=== PATIENT | female | born 1950 | race Caucasian/White ===

== ENCOUNTER → 2020-05-03 09:10 | Outpatient (BNVA) | payer MEDICARE, SELFPAY | PROVIDERS: Family Provider Nurse Practitioner; PCP Nurse Practitioner; Visit Provider Nurse Practitioner Family | DX: E11.9 Type 2 diabetes mellitus without complications (principal); I10 Essential (primary) hypertension | CPT/HCPCS: 80053; 80061; 83036; 84443; 85025 ==

== ENCOUNTER → 2021-03-04 13:27 | Outpatient (BNVA) | payer MEDICARE, SELFPAY | PROVIDERS: Family Provider Nurse Practitioner; PCP Nurse Practitioner; Visit Provider Nurse Practitioner | DX: R53.83 Other fatigue (principal); E55.9 Vitamin D deficiency, unspecified; E11.65 Type 2 diabetes mellitus with hyperglycemia | CPT/HCPCS: 71046; 80053; 80061; 81000; 82306; 82607; 83036; 84443; 85025; 87400 ==

== ENCOUNTER → 2021-06-12 09:07 | Outpatient (BNVA) | payer MEDICARE, SELFPAY | PROVIDERS: Family Provider Nurse Practitioner; PCP Nurse Practitioner; Visit Provider Nurse Practitioner Family | DX: E11.65 Type 2 diabetes mellitus with hyperglycemia (principal); E55.9 Vitamin D deficiency, unspecified | CPT/HCPCS: 80053; 80061; 82306; 83036; 84443; 85025 ==

== ENCOUNTER → 2021-12-31 14:05 | Outpatient (BNVA) | payer MEDICARE, SELFPAY | PROVIDERS: Family Provider Nurse Practitioner; PCP Nurse Practitioner; Visit Provider Nurse Practitioner | DX: E11.65 Type 2 diabetes mellitus with hyperglycemia (principal); E55.9 Vitamin D deficiency, unspecified; R10.9 Unspecified abdominal pain; R53.83 Other fatigue; Z79.899 Other long term (current) drug therapy | CPT/HCPCS: 80053; 80061; 81000; 82306; 82607; 83036; 84443; 85025; 86705; 86706; 86709; 86803; 87340 ==

== ENCOUNTER → 2022-01-01 15:03 | Outpatient (BNVA) | payer MEDICARE, SELFPAY | PROVIDERS: Family Provider Nurse Practitioner; PCP Nurse Practitioner; Visit Provider Nurse Practitioner | DX: R53.83 Other fatigue (principal); R10.9 Unspecified abdominal pain | CPT/HCPCS: 71046; 74018 ==

== ENCOUNTER 2022-01-03 15:03 | Emergency (ER) | payer MEDICARE, SELFPAY ==
[2022-01-03] VITALS (7 sets, daily range): BP systolic 131–165; BP diastolic 79–99; PULSE 65–92; RESP 17–18; TEMP 36.7–36.9; O2SAT 96–98; BMI 33.8
--- NOTE | 2022-01-03 15:19 | XR_ITS ---
WS: [id number] XR chest 1V portable [id number] REASON FOR EXAM: Cough FINDINGS: Significant tortuosity of the thoracic aorta. Normal heart size. Calcified granulomatous disease in both hemithoraces. No active pulmonary parenchymal or pleural dise ase. Significant elevation of the right hemidiaphragm. The chest does not change significantly since 01/01/2022. XR/XR chest 1V portable [id number] IMPRESSION: Stable chest no acute abnormality identified.
[2022-01-03 16:04] LABS: Basophils % 0.5 %; Hematocrit 38.4 % (37.0-47.0); Hemoglobin 12.5 g/dL (11.5-15.3); Lymphocytes % 24.6 %; Mean Corpuscular HGB Conc 32.6 g/dL (30.0-36.0); Mean Corpuscular Hemoglobin 29.3 pg (28.0-34.0); Mean Corpuscular Volume 89.9 fl (81-99); Mean Platelet Volume 10.4 fL (7.4-10.4); Monocytes # 0.6 10^3/uL (0.2-0.9); Monocytes % 7.3 %; Neutrophils # 5.59 10^3/uL (1.8-7.7); Neutrophils % 67.4 %; Nucleated Red Blood Cells % 0 %; Platelet Count 351 10^3/cmm (130-400); Red Blood Count 4.27 10^6/uL (4.1-5.3); Red Cell Distribution Width 13.7 % (12.1-15.1); White Blood Count 8.3 10^3/uL (4.0-10.0)
[2022-01-03 16:22] LABS: Alanine Aminotransferase 287 U/L (0-33); Albumin Level 4.1 g/dL (3.5-5.2); Alkaline Phosphatase 488 U/L (35-105); Anion Gap 19.7 (5-19); Aspartate Amino Transferase 170 U/L (0-32); Blood Urea Nitrogen 22 mg/dL (8-23); Calcium 9.9 mg/dL (8.5-10.5); Carbon Dioxide 23 mmol/L (22-29); Chloride 99 mmol/L (98-107); Globulin 3.1 g/dL (1.3-4.6); Glucose 128 mg/dL (65-115); Lipase 38 U/L (13-60); Osmolality Calculated 291 mOsm/kg (285-295); Potassium 3.7 mmol/L (3.5-5.1); Sodium 138 mmol/L (136-145); Total Bilirubin 5.9 mg/dL (0.15-1.2); Total Protein 7.2 g/dL (6.6-8.7)
--- NOTE | 2022-01-03 16:59 | W.ED.ABDPA2 ---
Documented by User: Can Mcdowell DO 01/15/22 09:27 HPI - Abdominal Pain General: Chief Complaint: Abdominal Pain Stated Complaint: Sent by Dr. Cannon abnormal labs Time Seen by Provider: 01/03/22 16:15 Source: patient Mode of arrival: ambulatory Limitations: no limitations History of Present Illness: 71-year-old female presents to the emergency room with report of elevated and liver enzymes and T bili. She has been having epigastric pain after eating with nausea. No vomiting or diarrhea no previous abdominal surgeries no fever sweats or chills no acholic stools no dysuria urgency or frequency. She is on metformin she is not on any statin medications. No other hepatotoxic medications. She reported generally feeling ill this past week. No chest pain or shortness of breath. Localizes pain to the epigastric and right upper quadrant area. MD elicited complaint: abdominal pain Pertinent past history: none Onset (ago): minute(s) Pain Consistency: constant Location: Epigastric and RUQ Severity: moderate Quality: cramping Radiation: none Exacerbating factors: nothing Relieving factors: nothing Associated Symptoms: Reports anorexia, nausea and poor appetite; Denies belching, bloating, change in bowel habits, change in stool character, chills, coffee ground emesis, constipation, GI cramping, diarrhea, dyspepsia, dysuria, excessive flatus, fever(s), heartburn, hematochezia, hematuria, hematemesis, fecal incontinence, loose stools, melena, syncope and vomiting Review of Systems Const: Denies: fever(s), chills, fatigue or malaise ENMT: Denies: throat pain, ear or mastoid pain, nasal discharge or nasal congestion Card: Denies: chest pain, palpitations or syncope Resp: Denies: dyspnea, productive cough or non-productive cough GI: Reports: abdominal pain and nausea; Denies: vomiting, hematemesis, coffee ground emesis, heartburn, diarrhea, constipation, bloating, GI cramping, belching, excessive flatus, fecal incontinence, change in bowel habits, change in stool character, hematochezia or melena : Denies: flank pain, difficulty voiding, dysuria, urinary frequency or hematuria Skin/Breast: Denies: rash or pruritus PFSH ED PFSH: Medical History Diabetes mellitus with hyperglycemia, without long-term current use of insulin Essential hypertension Vitamin D deficiency Surgical History (Reviewed 01/15/22 @ 09: by Can Mcdowell DO) No significant past surgical history Family History (Reviewed 01/15/22 @ 09: by Can Mcdowell DO) Mother Diabetes Social History (Reviewed 01/15/22 @ : by Can Mcdowell DO) Smoking and tobacco status: never smoked Second hand smoke exposure: No Smoking risk assessment/counseling performed?: No Alcohol intake: never Desire information about alcohol rehabilitation?: No Counseling given: No Desire information about substance/drug rehabilitation?: No Counseling given: No Adopted: No Caregiver/support person: No Lives independently: Yes Household members: spouse Housing: House Marital status: Number of children: 2 service: No Current occupational status: retired History of recent travel: No Physical Exam Const: GENERAL APPEARANCE: cooperative and comfortable ORIENTATION/CONSCIOUSNESS: Yes awake, Yes oriented to person, Yes oriented to place and Yes oriented to time HENMT: COMMON NORMALS: normocephalic, atraumatic and hearing grossly normal bilaterally HEAD & SCALP: normocephalic and atraumatic Resp: COMMON NORMALS: normal respiratory effort, No retractions, No use of accessory muscles and clear to auscultation bilaterally AUSCULTATION: clear to auscultation bilaterally Cardio: COMMON NORMALS: regular rate, regular rhythm and No murmurs present (Cardio) RATE: regular rate RHYTHM: regular rhythm GI: COMMON NORMALS: No hepatosplenomegaly present AUSCULTATION: Yes normoactive bowel sounds PALPATION: Yes Tenderness to palpation present (GI) Details: RUQ (Negative Caicedo sign but generalized mild tenderness), No Guarding due to palpation present (GI) and Yes No hepatosplenomegaly present Extremity: COMMON NORMALS: normal to inspection, capillary refill normal, no clubbing, cyanosis or edema, no calf tenderness and no pedal edema Neuro: SENSORIUM/ORIENTATION: Yes oriented to person, Yes oriented to place and Yes oriented to time Skin: COMMON NORMALS: no rashes or lesions noted GENERAL SKIN EXAM: no rashes or lesions noted Course Vital Signs: Vital signs: Vital Signs Temperature 98.4 F 01/03/22 22:36 Pulse Rate 78 01/03/22 22:36 Respiratory Rate 17 01/03/22 22:36 Blood Pressure 145/88 01/03/22 22:36 Pulse Oximetry 96 01/03/22 22:36 Oxygen Delivery Me thod 01/03/22 17:51 MDM - Abdominal Pain Medical Decision Making Care signed out to Dr. Pineda at change of shift. See final notes for diagnosis and disposition. Patient presents abdominal pain along with an elevated bilirubin her CT showed a liver mass with intrahepatic biliary ductal dilatation I did speak to physician at [facility] will transfer there for higher level care for patient likely needs GI she has been stable here. Lab Data : 01/03/22 15:50 01/03/22 15:50 Labs/Radiology: Radiology Impressions Chest X-Ray 01/03/22 15:19 IMPRESSION: Stable chest no acute abnormality identified. Gallbladder Ultrasound 01/03/22 17:00 IMPRESSION: 1. Questionable evidence on a few images of the mass in the right lobe of the liver seen on the recent CT. No sonographic demonstration of the intrahepatic biliary ductal dilatation seen on the CT. 2. No good visualization of the distal gallbladder; no shadowing stone in its proximal aspect. Nondilated CBD. 3. No apparent abnormality of the right kidney and the visualized pancreas. Other findings detailed above. Abdomen/Pelvis CT 01/03/22 19:44 IMPRESSION: 1. Noncontrast study showing a right liver mass with ill-defined margins having no fat plane between it and the gallbladder in addition to moderate intrahepatic biliary ductal dilatation ending at the eleazar hepatis, therefore cholangiocarcinoma felt to be possible. Follow-up liver MRI without and with contrast suggested. 2. Minimal left hydronephrosis and/or left peripelvic cysts. Bilateral ovarian varices. Small hiatal hernia. Other findings detailed above. COMMENTS: Consistent with the [place] [employer]'s Incidental Findings Committee white paper (J Am Lyric Radiol 2018): Any incidental renal lesion less than 1 cm or classified as too small to characterize, or any incidental cystic renal lesion characterized as simple-appearing, is likely benign. No follow-up imaging is recommended for these lesions per consensus recommendations based on imaging criteria. Laboratory Results WBC 8.3 10^3/uL (4.0-10.0) 01/03/22 15:50 RBC 4.27 10^6/uL (4.1-5.3) 01/03/22 15:50 Hgb 12.5 g/dL (11.5-15.3) 01/03/22 15:50 Hct 38.4 % (37.0-47.0) 01/03/22 15:50 MCV 89.9 fl (81-99) 01/03/22 15:50 MCH 29.3 pg (28.0-34.0) 01/03/22 15:50 MCHC 32.6 g/dL (30.0-36.0) 01/03/22 15:50 RDW 13.7 % (12.1-15.1) 01/03/22 15:50 Plt Count 351 10^3/cmm (130-400) 01/03/22 15:50 MPV 10.4 fL (7.4-10.4) 01/03/22 15:50 Neut % (Auto) 67.4 % 01/03/22 15:50 Lymph % (Auto) 24.6 % 01/03/22 15:50 Trinity % (Auto) 7.3 % 01/03/22 15:50 Eos % (Auto) 0.0 % 01/03/22 15:50 Baso % (Auto) 0.5 % 01/03/22 15:50 Neut # (Auto) 5.59 10^3/uL (1.8-7.7) 01/03/22 15:50 Lymph # (Auto) 2.0 10^3/uL (0.8-4.8) 01/03/22 15:50 Trinity # (Auto) 0.6 10^3/uL (0.2-0.9) 01/03/22 15:50 Eos # (Auto) 0.0 10^3/uL (0.0-0.8) 01/03/22 15:50 Baso # (Auto) 0.0 10^3/uL (0.0-0.1) 01/03/22 15:50 Nucleated RBC % (auto) 0 % 01/03/22 15:50 Nucleated RBCs # 0.0 /100WBC 01/03/22 15:50 Sodium 138 mmol/L (136-145) 01/03/22 15:50 Potassium 3.7 mmol/L (3.5-5.1) 01/03/22 15:50 Chloride 99 mmol/L (98-107) 01/03/22 15:50 Carbon Dioxide 23 mmol/L (22-29) 01/03/22 15:50 Anion Gap 19.7 (5-19) H 01/03/22 15:50 BUN 22 mg/dL (8-23) 01/03/22 15:50 Creatinine 0.7 mg/dL (0.5-0.9) 01/03/22 15:50 GFR Calculation Not Reportable 01/03/22 15:50 Glucose 128 mg/dL (65-115) H 01/03/22 15:50 Calculated Osmolality 291 mOsm/kg (285-295) 01/03/22 15:50 Calcium 9.9 mg/dL (8.5-10.5) 01/03/22 15:50 Total Bilirubin 5.9 mg/dL (0.15-1.2) H 01/03/22 15:50 AST 170 U/L (0-32) H 01/03/22 15:50 ALT 287 U/L (0-33) H 01/03/22 15:50 Alkaline Phosphatase 488 U/L (35-105) H 01/03/22 15:50 Total Protein 7.2 g/dL (6.6-8.7) 01/03/22 15:50 Albumin 4.1 g/dL (3.5-5.2) 01/03/22 15:50 Globulin 3.1 g/dL (1.3-4.6) 01/03/22 15:50 Lipase 38 U/L (13-60) 01/03/22 15:50 Urine Color Yellow (Yellow) 01/03/22 15:45 Urine Appearance Clear (CLEAR) 01/03/22 15:45 Urine pH 5 (5-7) 01/03/22 15:45 Ur Specific Champion 1.005 (1.005-1.030) 01/03/22 15:45 Urine Protein Neg (Negative) 01/03/22 15:45 Urine Glucose (UA) Norm (Normal) 01/03/22 15:45 Urine Ketones Negative (Negative) 01/03/22 15:45 Urine Blood Neg (Negative) 01/03/22 15:45 Urine Nitrate Negative (Negative) 01/03/22 15:45 Urine Bilirubin 1+ (Negative) H 01/03/22 15:45 Urine Urobilinogen 1 mg/dL (Negative) H 01/03/22 15:45 Ur Leukocyte Esterase 1+ (Negative) H 01/03/22 15:45 Urine RBC None /hpf (0-2) 01/03/22 15:45 Urine WBC None /hpf (0-5) 01/03/22 15:45 Ur Squamous Epith Cells None /hpf (0-5) 01/03/22 15:45 Amorphous Sediment Not Reportable 01/03/22 15:45 Urine Bacteria None /hpf (NONE) 01/03/22 15:45 Hepatitis A IgM Ab Non-reactive (Nonreactive) 01/03/22 18:40 Hep Bs Antigen Non-reactive (Nonreactive) 01/03/22 18:40 Hep Bs Antibody 3.5 (11.5-1000) L 01/03/22 18:40 Hep B Core Total Ab Non-reactive (Nonreactive) 01/03/22 18:40 Hepatitis C Antibody Non-reactive (Nonreactive) 01/03/22 18:40 Discharge Plan Discharge Patient Disposition: Xfer Short-Term Hosp Clinical Impression: Liver mass, Elevated bilirubin Condition: Stable Referrals: Aryan Cannon, [facility] [Primary Care Provider] - Coding Level of Care Code ED Egg Processing Supervisor for Chg Fwd Exam Detailed Documented by User: David Pineda MD 01/03/22 22:12 HPI - Abdominal Pain General: Chief Complaint: Abdominal Pain Stated Complaint: Sent by Dr. Cannon abnormal labs Time Seen by Provider: 01/03/22 16:15 PFSH ED PFSH: Medical History Diabetes mellitus with hyperglycemia, without long-term current use of insulin Essential hypertension Vitamin D deficiency Surgical History No significant past surgical history Family History Mother Diabetes Social History Smoking and tobacco status: never smoked Second hand smoke exposure: No Smoking risk assessment/counseling performed?: No Alcohol intake: never Desire information about alcohol rehabilitation?: No Counseling given: No Desire information about substance/drug rehabilitation?: No Counseling given: No Adopted: No Caregiver/support person: No Lives independently: Yes Household members: spouse Housing: House Marital status: Number of children: 2 service: No Current occupational status: retired History of recent travel: No Course Vital Signs: Vital signs: Vital Signs Temperature 98.4 F 01/03/22 22:36 Pulse Rate 78 01/03/22 22:36 Respiratory Rate 17 01/03/22 22:36 Blood Pressure 145/88 01/03/22 22:36 Pulse Oximetry 96 01/03/22 22:36 Oxygen Delivery Me thod 01/03/22 17:51 MDM - Abdominal Pain Medical Decision Making Patient presents abdominal pain along with an elevated bilirubin her CT showed a liver mass with intrahepatic biliary ductal dilatation I did speak to physician at [facility] will transfer there for higher level care for patient likely needs GI she has been stable here. Lab Data : 01/03/22 15:50 01/03/22 15:50 Labs/Radiology: Radiology Impressions Chest X-Ray 01/03/22 15:19 IMPRESSION: Stable chest no acute abnormality identified. Gallbladder Ultrasound 01/03/22 17:00 IMPRESSION: 1. Questionable evidence on a few images of the mass in the right lobe of the liver seen on the recent CT. No sonographic demonstration of the intrahepatic biliary ductal dilatation seen on the CT. 2. No good visualization of the distal gallbladder; no shadowing stone in its proximal aspect. Nondilated CBD. 3. No apparent abnormality of the right kidney and the visualized pancreas. Other findings detailed above. Abdomen/Pelvis CT 01/03/22 19:44 IMPRESSION: 1. Noncontrast study showing a right liver mass with ill-defined margins having no fat plane between it and the gallbladder in addition to moderate intrahepatic biliary ductal dilatation ending at the eleazar hepatis, therefore cholangiocarcinoma felt to be possible. Follow-up liver MRI without and with contrast suggested. 2. Minimal left hydronephrosis and/or left peripelvic cysts. Bilateral ovarian varices. Small hiatal hernia. Other findings detailed above. COMMENTS: Consistent with the [place] [employer]'s Incidental Findings Committee white paper (J Am Lyric Radiol 2018): Any incidental renal lesion less than 1 cm or classified as too small to characterize, or any incidental cystic renal lesion characterized as simple-appearing, is likely benign. No follow-up imaging is recommended for these lesions per consensus recommendations based on imaging criteria. Laboratory Results WBC 8.3 10^3/uL (4.0-10.0) 01/03/22 15:50 RBC 4.27 10^6/uL (4.1-5.3) 01/03/22 15:50 Hgb 12.5 g/dL (11.5-15.3) 01/03/22 15:50 Hct 38.4 % (37.0-47.0) 01/03/22 15:50 MCV 89.9 fl (81-99) 01/03/22 15:50 MCH 29.3 pg (28.0-34.0) 01/03/22 15:50 MCHC 32.6 g/dL (30.0-36.0) 01/03/22 15:50 RDW 13.7 % (12.1-15.1) 01/03/22 15:50 Plt Count 351 10^3/cmm (130-400) 01/03/22 15:50 MPV 10.4 fL (7.4-10.4) 01/03/22 15:50 Neut % (Auto) 67.4 % 01/03/22 15:50 Lymph % (Auto) 24.6 % 01/03/22 15:50 Trinity % (Auto) 7.3 % 01/03/22 15:50 Eos % (Auto) 0.0 % 01/03/22 15:50 Baso % (Auto) 0.5 % 01/03/22 15:50 Neut # (Auto) 5.59 10^3/uL (1.8-7.7) 01/03/22 15:50 Lymph # (Auto) 2.0 10^3/uL (0.8-4.8) 01/03/22 15:50 Trinity # (Auto) 0.6 10^3/uL (0.2-0.9) 01/03/22 15:50 Eos # (Auto) 0.0 10^3/uL (0.0-0.8) 01/03/22 15:50 Baso # (Auto) 0.0 10^3/uL (0.0-0.1) 01/03/22 15:50 Nucleated RBC % (auto) 0 % 01/03/22 15:50 Nucleated RBCs # 0.0 /100WBC 01/03/22 15:50 Sodium 138 mmol/L (136-145) 01/03/22 15:50 Potassium 3.7 mmol/L (3.5-5.1) 01/03/22 15:50 Chloride 99 mmol/L (98-107) 01/03/22 15:50 Carbon Dioxide 23 mmol/L (22-29) 01/03/22 15:50 Anion Gap 19.7 (5-19) H 01/03/22 15:50 BUN 22 mg/dL (8-23) 01/03/22 15:50 Creatinine 0.7 mg/dL (0.5-0.9) 01/03/22 15:50 GFR Calculation Not Reportable 01/03/22 15:50 Glucose 128 mg/dL (65-115) H 01/03/22 15:50 Calculated Osmolality 291 mOsm/kg (285-295) 01/03/22 15:50 Calcium 9.9 mg/dL (8.5-10.5) 01/03/22 15:50 Total Bilirubin 5.9 mg/dL (0.15-1.2) H 01/03/22 15:50 AST 170 U/L (0-32) H 01/03/22 15:50 ALT 287 U/L (0-33) H 01/03/22 15:50 Alkaline Phosphatase 488 U/L (35-105) H 01/03/22 15:50 Total Protein 7.2 g/dL (6.6-8.7) 01/03/22 15:50 Albumin 4.1 g/dL (3.5-5.2) 01/03/22 15:50 Globulin 3.1 g/dL (1.3-4.6) 01/03/22 15:50 Lipase 38 U/L (13-60) 01/03/22 15:50 Urine Color Yellow (Yellow) 01/03/22 15:45 Urine Appearance Clear (CLEAR) 01/03/22 15:45 Urine pH 5 (5-7) 01/03/22 15:45 Ur Specific Champion 1.005 (1.005-1.030) 01/03/22 15:45 Urine Protein Neg (Negative) 01/03/22 15:45 Urine Glucose (UA) Norm (Normal) 01/03/22 15:45 Urine Ketones Negative (Negative) 01/03/22 15:45 Urine Blood Neg (Negative) 01/03/22 15:45 Urine Nitrate Negative (Negative) 01/03/22 15:45 Urine Bilirubin 1+ (Negative) H 01/03/22 15:45 Urine Urobilinogen 1 mg/dL (Negative) H 01/03/22 15:45 Ur Leukocyte Esterase 1+ (Negative) H 01/03/22 15:45 Urine RBC None /hpf (0-2) 01/03/22 15:45 Urine WBC None /hpf (0-5) 01/03/22 15:45 Ur Squamous Epith Cells None /hpf (0-5) 01/03/22 15:45 Amorphous Sediment Not Reportable 01/03/22 15:45 Urine Bacteria None /hpf (NONE) 01/03/22 15:45 Hepatitis A IgM Ab Non-reactive (Nonreactive) 01/03/22 18:40 Hep Bs Antigen Non-reactive (Nonreactive) 01/03/22 18:40 Hep Bs Antibody 3.5 (11.5-1000) L 01/03/22 18:40 Hep B Core Total Ab Non-reactive (Nonreactive) 01/03/22 18:40 Hepatitis C Antibody Non-reactive (Nonreactive) 01/03/22 18:40 Discharge Plan Discharge Patient Disposition: Xfer Short-Term Hosp Clinical Impression: Liver mass, Elevated bilirubin Condition: Stable Referrals: Aryan Cannon, [facility] [employer] [facility] [Primary Care Provider] - Coding Level of Care Code ED Egg Processing Supervisor for Chg Fwd Exam Detailed
--- NOTE | 2022-01-03 17:00 | USR_ITS ---
PROCEDURE INFORMATION: Exam: US Abdomen, Limited; Right Upper Quadrant Exam date and time: 01/03/2022 6:52 PM Age: 71 years old Clinical indication: Abdominal pain; Acute; Additional info: Elevated lfts/t bili TECHNIQUE: Imaging protocol: Real time ultrasound of the abdomen with image documentation. Limited exam focused on the right upper quadrant. COMPARISON: CR XR abdomen 1V* [id number] 01/01/2022 3:04 PM FINDINGS: Liver: Normal echogenicity of the left lobe of the liver and no apparent mass within it. Less than optimal visualization of the right lobe of the liver with slightly heterogeneous density likely evident within it; questionable evidence on a few images of the mass in the right lobe of the liver seen on the recent CT. Normal blood flow in the main portal vein. Gallbladder: No good visualization of the distal gallbladder. Anterior gallbladder wall thickness 2.1 mm. No shadowing stone in the proximal gallbladder. Biliary ducts: No sonographic demonstration of the intrahepatic biliary ductal dilatation seen on the recent CT. CBD measured as 5.5 mm. Pancreas: Normal size and echogenicity of the pancreatic neck. Obscuration of the rest of the pancreas by bowel gas. Right kidney: Right kidney approximately 10.6 cm long despite bowel gas along it by 4.5 x 5.6 cm with no hydronephrosis or apparent mass or shadowing stone. Aorta: No aneurysm of the visualized aorta. US/US gall bladder [id number] IMPRESSION: 1. Questionable evidence on a few images of the mass in the right lobe of the liver seen on the recent CT. No sonographic demonstration of the intrahepatic biliary ductal dilatation seen on the CT. 2. No good visualization of the distal gallbladder; no shadowing stone in its proximal aspect. Nondilated CBD. 3. No apparent abnormality of the right kidney and the visualized pancreas. Other findings detailed above.
[2022-01-03 17:23] LABS: Bilirubin Urine 1+ (Negative); Blood Urine Neg (Negative); Glucose Urine UA Norm (Normal); Ketones Urine Negative (Negative); Leukocyte Esterase Urine 1+ (Negative); Nitrate Urine Negative (Negative); Protein Urine Neg (Negative); Specific Gravity, Urine 1.005 (1.005-1.030); Urine Appearance Clear (CLEAR); Urine Color Yellow (Yellow); Urobilinogen Urine 1 mg/dL (Negative); pH Urine 5 (5-7)
[2022-01-03 17:24] LABS: Add Urine Culture? No; Add Urine Microscopic? YES
--- NOTE | 2022-01-03 19:44 | CTR_ITS ---
PROCEDURE INFORMATION: Exam: CT Abdomen And Pelvis Without Contrast Exam date and time: 01/03/2022 7:51 PM Age: 71 years old Clinical indication: Nausea and other: Elevated liver enzymes, weakness; Additional info: Abd pain/ elevated bilirubing TECHNIQUE: Imaging protocol: Computed tomography of the abdomen and pelvis without contrast. Radiation optimization: All CT scans at this facility use at least one of these dose optimization techniques: automated exposure control; mA and/or kV adjustment per patient size (includes targeted exams where dose is matched to clinical indication); or iterative reconstruction. COMPARISON: US gall bladder [id number] 01/03/2022 6:52 PM RADIATION DOSE METRICS: Total DLP (mGy-cm): 827.17 FINDINGS: Lungs: Minimal stranding in the lung bases. Diaphragm: Small hiatal hernia. Eventration of the right hemidiaphragm. Liver: Density of 24 HU in the approximately 5.4 x 3.9 x 4.1 cm mass in the right lobe of the liver having ill-defined margins and no fat plane between it and the gallbladder. Small satellite mass in the inferior right lobe of the liver also possible. Gallbladder and bile ducts: Slightly heterogeneous density within the gallbladder, but no calcified gallstones. Moderate intrahepatic biliary ductal dilatation, but no dilatation of the CBD. Pancreas: Mild fatty infiltration of the pancreatic head, but no suggestion of a mass in the pancreas or dilatation of its duct. Spleen: No splenomegaly. Adrenal glands: No adrenal mass. Kidneys and ureters: No right hydronephrosis. Minimal left hydronephrosis and/or left peripelvic cysts. No suggestion of a solid renal mass. Stomach and bowel: Elongation of the sigmoid colon into the right middle to upper abdomen. At least mild sigmoid diverticulosis. No obstruction. Nondistended stomach. Appendix: Normal appendix. Intraperitoneal space: No free air. Vasculature: Moderate left and minimal to mild right ovarian varices. No aortic aneurysm. Atherosclerosis. Tortuosity of the descending thoracic aorta. Lymph nodes: Calcified lymph nodes in the right mediastinum and lower hilum. No obvious periportal adenopathy or suggestion of enlarged nodes elsewhere. Urinary bladder: Unremarkable as visualized. Reproductive: Unremarkable as visualized. Bones/joints: Old compression fractures. Degeneration of multiple discs. Prominent degeneration of multiple lower lumbar facet joints and probable bony bridging of some of these joints. Numerous slight malalignments. Soft tissues: Small left inguinal hernia containing fat. CT/CT abdomen pelvis wo con [id number] IMPRESSION: 1. Noncontrast study showing a right liver mass with ill-defined margins having no fat plane between it and the gallbladder in addition to moderate intrahepatic biliary ductal dilatation ending at the eleazar hepatis, therefore cholangiocarcinoma felt to be possible. Follow-up liver MRI without and with contrast suggested. 2. Minimal left hydronephrosis and/or left peripelvic cysts. Bilateral ovarian varices. Small hiatal hernia. Other findings detailed above. COMMENTS: Consistent with the [place] [employer]'s Incidental Findings Committee white paper (J Am Lyric Radiol 2018): Any incidental renal lesion less than 1 cm or classified as too small to characterize, or any incidental cystic renal lesion characterized as simple-appearing, is likely benign. No follow-up imaging is recommended for these lesions per consensus recommendations based on imaging criteria.
[2022-01-03 20:47] LABS: Hepatitis A Antibody IgM Non-Reactive (Nonreactive); Hepatitis B Core AB, Total Non-Reactive (Nonreactive); Hepatitis B Surface AB 3.5 (11.5-1000); Hepatitis B Surface Antigen Non-Reactive (Nonreactive); Hepatitis C Virus Antibody Non-Reactive (Nonreactive)
== END 2022-01-03 22:58 | disposition short-term general hospital (02) ==
PROVIDERS: Family Medicine; Emergency Provider Emergency Medicine; PCP Nurse Practitioner
DX: R16.0 Hepatomegaly, not elsewhere classified (principal); E80.6 Other disorders of bilirubin metabolism; E11.9 Type 2 diabetes mellitus without complications; I10 Essential (primary) hypertension
CPT/HCPCS: 71045; 74176; 76705; 80053; 81001; 83690; 85025; 86705; 86706; 86709; 86803; 87340; 99285

== ENCOUNTER → 2022-01-17 10:30 | Outpatient (BNVA) | payer MEDICARE, SELFPAY | PROVIDERS: PCP Nurse Practitioner; Visit Provider Nurse Practitioner | DX: R74.8 Abnormal levels of other serum enzymes (principal) | CPT/HCPCS: 80053; 85025 ==

== ENCOUNTER → 2022-01-27 10:49 | Outpatient (BNVA) | payer MEDICARE, SELFPAY | PROVIDERS: PCP Nurse Practitioner; Visit Provider Nurse Practitioner | DX: I10 Essential (primary) hypertension (principal); E11.65 Type 2 diabetes mellitus with hyperglycemia | CPT/HCPCS: 80053; 85025 ==

== ENCOUNTER → 2022-04-14 15:26 | Outpatient (BNVA) | payer MEDICARE, SELFPAY | PROVIDERS: PCP Nurse Practitioner; Visit Provider Nurse Practitioner | DX: I10 Essential (primary) hypertension (principal); E11.65 Type 2 diabetes mellitus with hyperglycemia; E55.9 Vitamin D deficiency, unspecified | CPT/HCPCS: 80053; 80061; 82306; 83036; 84443; 85025 ==

== ENCOUNTER → 2022-07-04 11:23 | Outpatient (BNVA) | payer MEDICARE, SELFPAY | PROVIDERS: PCP Nurse Practitioner; Visit Provider Nurse Practitioner | DX: E11.65 Type 2 diabetes mellitus with hyperglycemia (principal); R10.84 Generalized abdominal pain; E55.9 Vitamin D deficiency, unspecified | CPT/HCPCS: 71046; 74018; 80053; 80061; 81000; 82043; 82306; 83036; 85025 ==

== ENCOUNTER 2022-07-23 08:42 | Oncology outpatient (recurring) (ONCR) | payer MEDICARE, SELFPAY ==
[2022-07-23 11:00] LABS: Basophils % 0.2 %; Hematocrit 34.3 % (37.0-47.0); Hemoglobin 10.9 g/dL (11.5-15.3); Lymphocytes # 1.1 10^3/uL (0.8-4.8); Lymphocytes % 9.4 %; Mean Corpuscular HGB Conc 31.8 g/dL (30.0-36.0); Mean Corpuscular Hemoglobin 24.8 pg (28.0-34.0); Mean Platelet Volume 9.9 fL (7.4-10.4); Monocytes # 0.6 10^3/uL (0.2-0.9); Monocytes % 4.8 %; Neutrophils # 10.38 10^3/uL (1.8-7.7); Neutrophils % 85.1 %; Nucleated Red Blood Cells % 0 %; Platelet Count 527 10^3/cmm (130-400); Red Cell Distribution Width 14.7 % (12.1-15.1); White Blood Count 12.2 10^3/uL (4.0-10.0)
[2022-07-23 11:24] LABS: Carcinoembryonic Antigen 1.5 ng/mL (0.0-4.7); Tumor Marker Alpha Fetoprotein 1.3 ng/mL (0-8.3)
[2022-07-23 11:35] LABS: Alanine Aminotransferase 38 U/L (0-33); Albumin Level 3.3 g/dL (3.5-5.2); Alkaline Phosphatase 832 U/L (35-105); Aspartate Amino Transferase 51 U/L (0-32); Blood Urea Nitrogen 10 mg/dL (8-23); Calcium 9.4 mg/dL (8.5-10.5); Carbon Dioxide 22 mmol/L (22-29); Chloride 96 mmol/L (98-107); Glucose 199 mg/dL (65-115); Osmolality Calculated 279 mOsm/kg (285-295); Sodium 132 mmol/L (136-145); Total Bilirubin 1.3 mg/dL (0.15-1.2); Total Protein 7.3 g/dL (6.6-8.7)
[2022-07-23 11:41] LABS: Creatinine Clr Calc Pharmacy 59.3759
[2022-07-23 12:24] LABS: Cancer Antigen 19 9 65.54 U/mL (0-35)
--- NOTE | 2022-07-23 14:34 | PC.NURSE ---
Gardiant test drawn per orders from left ac space along with other labs per orders.mm
== END 2022-07-27 23:59 | disposition home or self-care (01) ==
PROVIDERS: PCP Nurse Practitioner; Visit Provider Internal Medicine Medical Oncology
DX: C22.0 Liver cell carcinoma (principal); C77.2 Secondary and unspecified malignant neoplasm of intra-abdominal lymph nodes; Z79.891 Long term (current) use of opiate analgesic
CPT/HCPCS: 36415; 80053; 82105; 82378; 85025; 86301; 99205

== ENCOUNTER 2022-07-27 14:52 | Observation (INO) | payer MEDICARE, SELFPAY ==
[2022-07-27] VITALS (20 sets, daily range): BP systolic 107–124; BP diastolic 62–69; PULSE 70–88; RESP 18–22; TEMP 36.7–37.2; O2SAT 91–95; BMI 31.2; BMI 30.7
--- NOTE | 2022-07-27 15:03 | ECG_ITS ---
[facility] Test Date: 2022-07-27 Pat Name: Marcela Rosas Department: Room: Gender: Female Visual Designer: : 1950 Requested By: Can Garcia Order Number: [id number] Hero MD: Cindy Beck M.D. Measurements Intervals [place] Rate: 86 P: 25 TX: 161 QRS: -61 QRSD: 109 T: 12 QT: 354 QTc: 426 Interpretive Statements SINUS RHYTHM LOW QRS VOLTAGE IN PRECORDIAL LEADS [QRS DEFLECTION < 1.0 mV IN CHEST LEADS] LEFT ANTERIOR FASCICULAR BLOCK [QRS AXIS <= -45, QR IN I, RS IN II] POSSIBLE ANTERIOR MYOCARDIAL INFARCTION , PROBABLY OLD [30 ms Q WAVE IN V3/V4, OR R < 0.2 mV IN V4] Compared to ECG 03/29/2014 13:15:12 Left anterior fascicular block now present Myocardial infarct finding now present Left-axis deviation no longer present Electronically Signed On 07-27-2022 22:32:32 CDT by Cindy Beck M.D. [id number]
--- NOTE | 2022-07-27 15:03 | XRR_ITS ---
PROCEDURE INFORMATION: Exam: XR Chest Exam date and time: 07/27/2022 3:08 PM Age: 71 years old Clinical indication: Cough and dyspnea; TECHNIQUE: Imaging protocol: Radiologic exam of the chest. Views: 1 view. COMPARISON: CR XR chest 2V* [id number] 07/04/2022 11:21 AM FINDINGS: Lungs: Unremarkable. No consolidation. Pleural spaces: There is blunting of the right costophrenic angle suggestive of a small pleural effusion. Heart/Mediastinum: Unremarkable. No cardiomegaly. Vasculature: There is calcified plaque in the aortic knob. Thoracic aorta is somewhat tortuous, similar to the prior study. Diaphragm: Elevation of the right hemidiaphragm is similar to the prior study. Bones/joints: There are degenerative changes in the thoracic spine and across the acromioclavicular joints. XR/XR chest 1V portable [id number] IMPRESSION: There is blunting of the right costophrenic angle suggestive of a small pleural effusion.
--- NOTE | 2022-07-27 15:09 | ED_ITS ---
HPI - Weakness General: Chief complaint: Weakness Stated complaint: fever, weakness/cancer pt Time Seen by Provider: 07/27/22 14:58 Source: patient Mode of arrival: ambulatory History of Present Illness: 71-year-old female presents emergency room with complaints of weakness that began yesterday. The family reports a temp at home of up to 102. 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 They tell me you are scheduled for a PICC line and a port and they are going to start some immunotherapy soon. She has a waller negative review of systems except for just feeling very weak. She did slide out of a chair onto the floor yesterday when she was down on the floor for about 30 minutes before her helped her back up she denies hitting her head losing consciousness she just felt too weak to stand when she went to get out of the chair. Complaint: generalized weakness Onset (ago): day(s) (1) Location: generalized Severity: moderate Relieving factors: none Exacerbating factors: none Associated symptoms: Denies chest pain, chills, confusion, melena, decreased appetite, diaphoresis, dysuria, easy bruising, fever(s), headache(s), myalgias, nausea, rash, short of breath, syncope or vomiting Review of Systems Const: Denies: fever(s), chills, fatigue, malaise or diaphoresis ENMT: Denies: throat pain, ear or mastoid pain, nasal discharge or nasal congestion Card: Denies: chest pain, palpitations, irregular heart rhythm, edema or syn cope Resp: Denies: dyspnea, productive cough or non-productive cough GI: Denies: abdominal pain, nausea, vomiting or melena : Denies: dysuria, urinary frequency or urinary urgency Musc: Denies: neck pain or back pain Skin/Breast: Denies: rash or pruritus Neuro: Denies: headache(s) or confusion Carlo/Lymph: Denies: easy bruising PFSH ED PFSH: Medical History Essential hypertension Type 2 diabetes mellitus Vitamin D deficiency Surgical History History of endoscopic retrograde cholangiopancreatography (05/23/22) ERCP with removal of biliary stent History of esophagogastroduodenoscopy (07/10/22) EGD with endoscopic ultrasound and FNA biopsies of liver and eleazar hepatis lymph node Hx of endoscopic retrograde cholangiopancreatography (01/10/22) ERCP with biliary stent placement Family History Mother Diabetes Father Heart attack Sister Breast cancer Social History Smoking and tobacco status: never smoked Second hand smoke exposure: No Smoking risk assessment/counseling performed?: No Alcohol intake: never Desire information about alcohol rehabilitation?: No Counseling given: No Substance/Drug Use: never Desire information about substance/drug rehabilitation?: No Counseling given: No Adopted: No Caregiver/support person: No Lives independently: Yes Household members: spouse Housing: House Marital status: Number of children: 2 service: No Current occupational status: retired Physical Exam Const: GENERAL APPEARANCE: cooperative and comfortable ORIENTATION/CONSCIOUSNESS: Yes awake, Yes oriented to person, Yes oriented to place and Yes oriented to time HENMT: COMMON NORMALS: normocephalic, atraumatic and hearing grossly normal bilaterally HEAD & SCALP: normocephalic and atraumatic Resp: COMMON NORMALS: normal respiratory effort, No retractions, No use of accessory muscles and clear to auscultation bilaterally AUSCULTATION: clear to auscultation bilaterally Cardio: COMMON NORMALS: regular rate, regular rhythm and No murmurs present (Cardio) RATE: regular rate RHYTHM: regular rhythm GI: COMMON NORMALS: Soft to palpation and No hepatosplenomegaly present AUSCULTATION: Yes normoactive bowel sounds PALPATION: Yes Soft to palpation, No Tenderness to palpation present (GI), No Guarding due to palpation present (GI) and Yes No hepatosplenomegaly present Extremity: COMMON NORMALS: normal to inspection, capillary refill normal, no clubbing, cyanosis or edema, no calf tenderness and no pedal edema Neuro: SENSORIUM/ORIENTATION: Yes oriented to person, Yes oriented to place a nd Yes oriented to time Skin: COMMON NORMALS: no rashes or lesions noted GENERAL SKIN EXAM: no rashes or lesions noted Course Vital Signs: Vital signs: Vital Signs Temperature 98.9 F 07/27/22 14:57 Pulse Rate 79 04/30/23 16:30 Respiratory Rate 18 07/27/22 16:30 Blood Pressure 118/69 07/27/22 16:00 Pulse Oximetry 92 07/27/22 16:30 Oxygen Delivery Me thod Room Air 07/27/22 14:57 MDM - Weakness Medical Decision Making Leukocytosis also with glucosuria. Chest x-ray shows small pleural effusion but no infiltrate I believe her elevated white count is in part due to tumor but in part also due to cystitis. She does not really any significant flank pain. CT shows further extension of her tumor where it is actually seeing the abdominal wall in the right. This also extended to the gallbladder fossa compared to previous. Reviewed the oncology note at this point they are recommending palliative treatments which she was supposed to get vascular access procedures for later this coming week and then begin immunotherapy as palliation. We initi ally discussed being discharged home with oral antibiotics. After reviewing the chart further went back to the room discussed with her again encouraged her to stay instead. She and her daughters are in agreement. We will start her on Rocephin. She is mildly hyponatremic in addition to having a cystitis and leukocytosis. Discussed Dr. Gandara orders written. Medical Records I reviewed the patient's medical records. Lab Data I reviewed the patient's lab results. 07/27/22 15:07 07/27/22 15:07 Radiology Impressions Chest X-Ray 07/27/22 15:03 IMPRESSION: There is blunting of the right costophrenic angle suggestive of a small pleural effusion. Abdomen/Pelvis CT 07/27/22 15:41 IMPRESSION: 1. Multiple heterogeneous hepatic lesions consistent with metastatic disease. There is heterogeneous density in the gallbladder fossa which can not be differentiated from the adjacent 2nd duodenal segment or pancreatic head raising concern for tumoral extension. 2. There is a heterogeneous lesion along the right lower quadrant peritoneum extending through the transverse abdominus muscle consistent with metastatic disease. 3. There are air-fluid levels in the distal colon suggesting mild nonspecific colitis versus other diarrheal illness. 4. Small right pleural effusion with adjacent compressive atelectasis. Laboratory Results WBC 20.2 10^3/uL (4.0-10.0) H 07/27/22 15:07 RBC 3.85 10^6/uL (4.1-5.3) L 07/27/22 15:07 Hgb 9.7 g/dL (11.5-15.3) L 07/27/22 15:07 Hct 29.6 % (37.0-47.0) L 07/27/22 15:07 MCV 76.9 fl (81-99) L 07/27/22 15:07 MCH 25.2 pg (28.0-34.0) L 07/27/22 15:07 MCHC 32.8 g/dL (30.0-36.0) 07/27/22 15:07 RDW 15.1 % (12.1-15.1) 07/27/22 15:07 Plt Count 301 10^3/cmm (130-400) 07/27/22 15:07 MPV 9.9 fL (7.4-10.4) 07/27/22 15:07 Neut % (Auto) 90.5 % 07/27/22 15:07 Lymph % (Auto) 2.7 % 07/27/22 15:07 [place] % (Auto) 5.1 % 07/27/22 15:07 Eos % (Auto) 0.3 % 07/27/22 15:07 Baso % (Auto) 0.2 % 07/27/22 15:07 Neut # (Auto) 18.28 10^3/uL (1.8-7.7) H 07/27/22 15:07 Lymph # (Auto) 0.6 10^3/uL (0.8-4.8) L 07/27/22 15:07 [place] # (Auto) 1.0 10^3/uL (0.2-0.9) H 07/27/22 15:07 Eos # (Auto) 0.1 10^3/uL (0.0-0.8) 07/27/22 15:07 Baso # (Auto) 0.0 10^3/uL (0.0-0.1) 07/27/22 15:07 Nucleated RBC % (auto) 0 % 07/27/22 15:07 Nucleated RBCs # 0.0 /100WBC 07/27/22 15:07 Sodium 125 mmol/L (136-145) L 07/27/22 15:07 Potassium 3.7 mmol/L (3.5-5.1) 07/27/22 15:07 Chloride 90 mmol/L (98-107) L 07/27/22 15:07 Carbon Dioxide 22 mmol/L (22-29) 07/27/22 15:07 Anion Gap 16.7 (5-19) 07/27/22 15:07 BUN 25 mg/dL (8-23) H 07/27/22 15:07 Creatinine 0.7 mg/dL (0.5-0.9) 07/27/22 15:07 GFR Calculation Not Reportable 07/27/22 15:07 Glucose 320 mg/dL (65-115) H 07/27/22 15:07 Calculated Osmolality 277 mOsm/kg (285-295) L 07/27/22 15:07 Calcium 9.2 mg/dL (8.5-10.5) 07/27/22 15:07 Total Bilirubin 1.7 mg/dL (0.15-1.2) H 07/27/22 15:07 AST 150 U/L (0-32) H 07/27/22 15:07 ALT 74 U/L (0-33) H 07/27/22 15:07 Alkaline Phosphatase 515 U/L (35-105) H 07/27/22 15:07 Ammonia 38 umol/L (11-51) 07/27/22 16:25 C-Reactive Protein 270.4 mg/L (0.0-4.9) H 07/27/22 15:07 Total Protein 6.9 g/dL (6.6-8.7) 07/27/22 15:07 Albumin 2.9 g/dL (3.5-5.2) L 07/27/22 15:07 Globulin 4.0 g/dL (1.3-4.6) 07/27/22 15:07 Lipase 8 U/L (13-60) L 07/27/22 15:07 Urine Color [place] (Yellow) 07/27/22 15:34 Urine Appearance Sl hazy (CLEAR) A 07/27/22 15:34 Urine pH 5 (5-7) 07/27/22 15:34 Ur Specific [place] 1.020 (1.005-1.030) 07/27/22 15:34 Urine Protein 1+ (Negative) H 07/27/22 15:34 Urine Glucose (UA) Trace (Normal) H 07/27/22 15:34 Urine Ketones 1+ (Negative) H 07/27/22 15:34 Urine Blood 2+ (Negative) H 07/27/22 15:34 Urine Nitrate Negative (Negative) 07/27/22 15:34 Urine Bilirubin 2+ (Negative) H 07/27/22 15:34 Urine Urobilinogen 4+ mg/dL (Negative) H 07/27/22 15:34 Ur Leukocyte Esterase 2+ (Negative) H 07/27/22 15:34 Urine RBC 10-15 /hpf (0-2) H 07/27/22 15:34 Urine WBC 25-40 /hpf (0-5) H 07/27/22 15:34 Ur Squamous Epith Cells 15-25 /hpf (0-5) H 07/27/22 15:34 Amorphous Sediment Not Reportable 07/27/22 15:34 Urine Bacteria 1+ /hpf (NONE) H 07/27/22 15:34 Discharge Plan Discharge Patient Disposition: Admitted As Inpatient Clinical Impression: Hepatobiliary cancer, Cystitis, Hyponatremia Condition: Stable Coding Level of Care Code ED [employer] for Hemal Merino
[2022-07-27 15:28] LABS: Basophils % 0.2 %; Eosinophils # 0.1 10^3/uL (0.0-0.8); Eosinophils % 0.3 %; Hematocrit 29.6 % (37.0-47.0); Hemoglobin 9.7 g/dL (11.5-15.3); Lymphocytes # 0.6 10^3/uL (0.8-4.8); Lymphocytes % 2.7 %; Mean Corpuscular HGB Conc 32.8 g/dL (30.0-36.0); Mean Corpuscular Hemoglobin 25.2 pg (28.0-34.0); Mean Corpuscular Volume 76.9 fl (81-99); Mean Platelet Volume 9.9 fL (7.4-10.4); Monocytes % 5.1 %; Neutrophils # 18.28 10^3/uL (1.8-7.7); Neutrophils % 90.5 %; Nucleated Red Blood Cells % 0 %; Platelet Count 301 10^3/cmm (130-400); Red Blood Count 3.85 10^6/uL (4.1-5.3); Red Cell Distribution Width 15.1 % (12.1-15.1); White Blood Count 20.2 10^3/uL (4.0-10.0)
[2022-07-27] MEDS: sodium chloride 0.9% 1,000 ML 999 ML IV (15:31)
[2022-07-27] MEDS: ondansetron 2 mg/ML SDV 2 mL 4 MG IVP (15:31)
--- NOTE | 2022-07-27 15:37 | PC.NURSE ---
Pt hooked up to continuous bedside cardiac monitoring.
--- NOTE | 2022-07-27 15:41 | CTR_ITS ---
PROCEDURE INFORMATION: Exam: CT Abdomen And Pelvis With Contrast Exam date and time: 07/27/2022 4:00 PM Age: 71 years old Clinical indication: Patient HX: PT C/O weakness x several days and reports she has liver cancer. ; Additional info: Abd pain TECHNIQUE: Imaging protocol: Computed tomography of the abdomen and pelvis with contrast. Radiation optimization: All CT scans at this facility use at least one of these dose optimization techniques: automated exposure control; mA and/or kV adjustment per patient size (includes targeted exams where dose is matched to clinical indication); or iterative reconstruction. Contrast material: OMNI 350; Contrast volume: 100 ml; Contrast route: INTRAVENOUS (IV); REPORTING DATA: Count of CT and Cardiac NM exams in prior 12 months: This patient has received [address] and 0 known cardiac nuclear medicine studies in the 12 months prior to the current study. COMPARISON: CT abdomen pelvis wo con [id number] 01/03/2022 7:51 PM RADIATION DOSE METRICS: Total DLP (mGy-cm): 728.3 FINDINGS: Pleural spaces: Small right pleural effusion with adjacent compressive atelectasis. Diaphragm: Elevation of the right hemidiaphragm. Liver: There are multiple heterogeneously enhancing hepatic lesions some of which contain regions of central necrosis, more numerous and more prominent when compared to the prior CT scan. Comparison to the prior CT scan is suboptimal as the prior CT scan was noncontrast. Largest lesion is at the posterior aspect of the right hepatic lobe contains thickened septations and internal necrosis measuring 9.7 x 8.2 cm in the craniocaudad/transverse dimensions. An exophytic heterogeneously enhancing lesion arises from the anterior aspect of the left hepatic lobe measuring 18 mm in the transverse dimension which was not present on the prior CT scan. There is intrahepatic ductal dilatation. Common bile duct is not definitely visualized. There is heterogeneous density in its expected location. There is contour irregularity and thickening of the mucosa of the 1st and 2nd duodenal segments which can not be differentiated from the adjacent heterogeneous liver/gallbladder fossa in regions. Pancreatic head can not be differentiated from the 2nd duodenal segment. Gallbladder and bile ducts: The gallbladder not definitely visualized. There is amorphous heterogeneous density in the gallbladder fossa. Pancreas: See Liver finding. Spleen: There are multiple subcentimeter low-density splenic lesions.Incidental calcified splenic granulomata. Adrenal glands: Normal. No mass. Kidneys and ureters: Normal. No hydronephrosis. Stomach and bowel: There are air-fluid levels in the distal colon suggesting mild nonspecific colitis versus other diarrheal illness. There is diverticulosis of the colon without evidence of diverticulitis. Appendix: No evidence of appendicitis. Intraperitoneal space: Unremarkable. No free air. No significant fluid collection. Vasculature: Unremarkable. No abdominal aortic aneurysm. Lymph nodes: There is a necrotic lymph node along the left abdominal peritoneum, series 4, image 38 measuring 0.4 by 1.9 cm in AP/transverse dimensions. Smaller adjacent lymph nodes are present as well. Urinary bladder: Unremarkable as visualized. Reproductive: Unremarkable as visualized. Bones/joints: Unremarkable. No acute fracture. Soft tissues: A heterogeneous mass extends along the right lower quadrant peritoneum extending through the transversus abdominus muscle measuring 3.2 x 3.0 cm in the transverse/AP dimensions. This may represent a metastatic lesion versus metastatic lymph node. CT/CT abdomen pelvis w con* [id number] IMPRESSION: 1. Multiple heterogeneous hepatic lesions consistent with metastatic disease. There is heterogeneous density in the gallbladder fossa which can not be differentiated from the adjacent 2nd duodenal segment or pancreatic head raising concern for tumoral extension. 2. There is a heterogeneous lesion along the right lower quadrant peritoneum extending through the transverse abdominus muscle consistent with metastatic disease. 3. There are air-fluid levels in the distal colon suggesting mild nonspecific colitis versus other diarrheal illness. 4. Small right pleural effusion with adjacent compressive atelectasis.
[2022-07-27 15:49] LABS: Alanine Aminotransferase 74 U/L (0-33); Albumin Level 2.9 g/dL (3.5-5.2); Alkaline Phosphatase 515 U/L (35-105); Anion Gap 16.7 (5-19); Aspartate Amino Transferase 150 U/L (0-32); Blood Urea Nitrogen 25 mg/dL (8-23); C Reactive Protein 270.4 mg/L (0.0-4.9); Calcium 9.2 mg/dL (8.5-10.5); Carbon Dioxide 22 mmol/L (22-29); Chloride 90 mmol/L (98-107); Glucose 320 mg/dL (65-115); Lipase 8 U/L (13-60); Osmolality Calculated 277 mOsm/kg (285-295); Potassium 3.7 mmol/L (3.5-5.1); Sodium 125 mmol/L (136-145); Total Bilirubin 1.7 mg/dL (0.15-1.2); Total Protein 6.9 g/dL (6.6-8.7)
[2022-07-27] MEDS: iohexol 350 mg/mL 500 mL Btl (per mL) IV (16:03)
[2022-07-27 16:07] LABS: Protein Urine 1+ (Negative); Urine Appearance SL Hazy (CLEAR); Urine Color Orange (Yellow); pH Urine 5 (5-7)
[2022-07-27 16:08] LABS: Add Urine Microscopic? YES; Bacteria Urine 1+ /hpf; Bilirubin Urine 2+ (Negative); Blood Urine 2+ (Negative); Glucose Urine UA Trace (Normal); Ketones Urine 1+ (Negative); Leukocyte Esterase Urine 2+ (Negative); Nitrate Urine Negative (Negative); Squamous Epithelial Cell Urine 15-25 /hpf (0-5); Urobilinogen Urine 4+ mg/dL (Negative); WBC Urine 25-40 /hpf (0-5)
[2022-07-27 16:09] LABS: Add Urine Culture? No
[2022-07-27 16:46] LABS: Ammonia 38 umol/L (11-51)
[2022-07-27] MEDS: cefTRIAXone 1,000 MG in sodium chloride 0.9% (plus) 50 ML 100 MG IV (17:06)
--- NOTE | 2022-07-27 17:24 | P.HP_ITS ---
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 Nicolas presented to the hospital with chief complaint of generalized weakness. Patient has not noticed any fever nausea vomiting or diarrhea. Patient is stating that for last 48 hours she has been extremely weak to the point she did not have en ough energy in her legs and she fell on the ground and her could not get her up that prompted her visit to the ER she has not noticed any chest pain, shortness of breath, syncope or headaches. She is endorsing anorexia and poor p.o. intake. In the ER she was diagnosed with severe leukocytosis however no active signs of sepsis, abnormal UA, she was started on IV fluids antibiotics physical therapy was requested Review of Systems Const: Reports: body aches; Denies: fever(s) Eyes: Denies: change in vision ENMT: Denies: throat pain Card: Denies: chest pain Resp: Denies: dyspnea GI: Denies: abdominal pain : Denies: flank pain Musc: Denies: neck pain Skin/Breast: Denies: rash Neuro: Denies: headache(s) Psych: Reports: anxiety Medications/Allergies Home Medications Medication Instructions Recorded Confirmed Last Taken Type nitroglycerin 0.4 mg sublingual 0.4 mg sublingual Q5M PRN chest 05/03/20 07/27/22 Unknown Rx tablet pain 30 days #30 tabs omeprazole magnesium 20 mg 20 mg PO DAILY PRN Heartburn 01/03/22 07/27/22 01/03/22 History tablet,delayed release (Prilosec OTC) metformin 500 mg tablet,extended 2,000 mg PO DAILY #120 tabs 07/17/22 07/27/22 07/26/22 Rx release 24 hr oxycodone 5 mg tablet 5 mg PO QID PRN pain 30 days #120 07/23/22 07/27/22 Unknown Rx tabs Allergies Allergy/AdvReac Type Severity Reaction Status Date / Time No Known Allergies Allergy Verified 07/23/22 09:29 PFSH Acute PFSH: Medical History Essential hypertension Type 2 diabetes mellitus Vitamin D deficiency Surgical History History of endoscopic retrograde cholangiopancreatography (05/23/22) ERCP with removal of biliary stent History of esophagogastroduodenoscopy (07/10/22) EGD with endoscopic ultrasound and FNA biopsies of liver and eleazar hepatis lymph node Hx of endoscopic retrograde cholangiopancreatography (01/10/22) ERCP with biliary stent placement Family History Mother Diabetes Father Heart attack Sister Breast cancer Social History Smoking and tobacco status: never smoked Second hand smoke exposure: No Smoking risk assessment/counseling performed?: No Alcohol intake: never Desire information about alcohol rehabilitation?: No Counseling given: No Substance/Drug Use: never Desire information about substance/drug rehabilitation?: No Counseling given: No Adopted: No Caregiver/support person: No Lives independently: Yes Household members: spouse Housing: House Marital status: Number of children: 2 service: No Current occupational status: retired Vitals/I&O/Wt Last Vital Signs Temp 98.9 F 07/27/22 14:57 Pulse 79 07/27/22 16:30 Resp 18 07/27/22 16:30 BP 118/69 07/27/22 16:00 Pulse Ox 92 07/27/22 16:30 O2 Del Method Room Air 07/27/22 14:57 Weight last 48 hrs Weight 77.564 kg Physical Exam Narrative: Patient is awake and alert Mild dehydration Hemodynamically stable Awake and alert Nonfocal neuro exam S1, S2 GCS 15 Abdomen soft Nonfocal neuro exam Appropriate mood and affect Very pleasant during my evaluation Appears stated age Data 07/28/22 03:57 07/28/22 03:57 Micro: Microbiology 07/27/22 15:18 Blood Culture - Preliminary Blood SPECIMEN COLLECTED 07/27/22 15:07 Blood Culture - Preliminary Blood SPECIMEN COLLECTED A&P Assessment and plan (1) Cystitis: (2) Hyponatremia: (3) History of endoscopic retrograde cholangiopancreatography: (4) Hepatobiliary cancer: (5) Intrahepatic bile duct dilation: (6) Diabetes mellitus with hyperglycemia, without long-term current use of insulin: Qualifiers: Diabetes mellitus type: type 2 Qualified Code(s): E11.65 - Type 2 diabetes mellitus with hyperglycemia (7) Generalized weakness: (8) Fall: (9) Chronic hyponatremia: Plan UTI Start antibiotics Ceftriaxone obtain urine culture no signs of sepsis Chronic hyponatremia Biliary tract cancer w mets to abd wall Follows with Dr Fidencio Nicolas has requested venous access, I will try and arrange PICC line placement before she is discharged because she already has an appointment on Generalized weakness related to uti and canecer Hepatobilairy poorly differentiated carcinoma, 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
[2022-07-27 18:10] LABS: Adenovirus Not Detected (NOT DETECT); Chlamydia Pneumoniae Not Detected (NOT DETECT); Coronavirus 229E,HKU1,NL63,OC4 Not Detected (NOT DETECT); Human Metapneumovirus Not Detected (NOT DETECT); Human Rhinovirus/Enterovirus Not Detected (NOT DETECT); Influenza A Not Detected (NOT DETECT); Influenza A H1 Not Detected (NOT DETECT); Influenza A H1-2009 Not Detected (NOT DETECT); Influenza A H3 Not Detected (NOT DETECT); Influenza B Not Detected (NOT DETECT); Mycoplasma Pneumoniae Not Detected (NOT DETECT); Parainfluenza Virus Type 1 Not Detected (NOT DETECT); Parainfluenza Virus Type 2 Not Detected (NOT DETECT); Parainfluenza Virus Type 3 Not Detected (NOT DETECT); Parainfluenza Virus Type 4 Not Detected (NOT DETECT); Respiratory Syncytial Virus A Not Detected (NOT DETECT); Respiratory Syncytial Virus B Not Detected (NOT DETECT); SARS-COV-2 Not Detected (NOT DETECT)
[2022-07-27 18:23] LABS: Procalcitonin 12.44 ng/mL (0-0.5)
--- NOTE | 2022-07-27 20:16 | PC.NURSE ---
report attempted at 2012; nurse will return call
[2022-07-27] MEDS: heparin 5,000 unit/mL INJ 1 mL 5000 UNIT SUBCUT (21:53)
[2022-07-27] MEDS: sodium chloride 0.9% 1,000 ML 75 ML IV (21:53)
[2022-07-28] VITALS: BP 106/66; PULSE 74; RESP 17; TEMP 36.6; O2SAT 93
[2022-07-28 04:00] VITALS: BP 111/68; PULSE 73; RESP 21; TEMP 36.8; O2SAT 94
[2022-07-28 04:36] LABS: Basophils % 0.2 %; Hematocrit 28.4 % (37.0-47.0); Hemoglobin 9.1 g/dL (11.5-15.3); Lymphocytes # 0.9 10^3/uL (0.8-4.8); Lymphocytes % 6.8 %; Mean Corpuscular Hemoglobin 24.9 pg (28.0-34.0); Mean Corpuscular Volume 77.8 fl (81-99); Mean Platelet Volume 11.6 fL (7.4-10.4); Monocytes % 7.4 %; Neutrophils % 85.1 %; Nucleated Red Blood Cells % 0 %; Platelet Count 225 10^3/cmm (130-400); Red Blood Count 3.65 10^6/uL (4.1-5.3); Red Cell Distribution Width 15.2 % (12.1-15.1)
[2022-07-28 04:45] LABS: Blood Urea Nitrogen 19 mg/dL (8-23); C Reactive Protein 243.6 mg/L (0.0-4.9); Carbon Dioxide 24 mmol/L (22-29); Chloride 97 mmol/L (98-107); Glucose 159 mg/dL (65-115); Magnesium 1.4 mg/dL (1.7-2.3); Osmolality Calculated 280 mOsm/kg (285-295); Sodium 132 mmol/L (136-145)
[2022-07-28 05:03] LABS: Anion Gap 14.7 (5-19); Potassium 3.7 mmol/L (3.5-5.1)
[2022-07-28 08:00] VITALS: BP 119/67; PULSE 72; PULSE 74; RESP 18; TEMP 36.7; O2SAT 92; O2SAT 94
[2022-07-28] MEDS: heparin 5,000 unit/mL INJ 1 mL 5000 UNIT SUBCUT (08:27)
[2022-07-28] MEDS: cefTRIAXone 1,000 MG in sodium chloride 0.9% (plus) 50 ML 100 MG IV (08:27)
--- NOTE | 2022-07-28 09:44 | P.DS_ITS ---
Discharge Providers Date of Admission: 07/27/22 20:06 Date of Discharge: July 28, 2022 Attending Provider at Admission: Tiera Gandara MD Attending Provider at Discharge: Tiera Gandara MD Primary Care Provider: JAIRO Stephenson Diagnoses at Discharge Discharge Diagnosis (1) Cystitis: Status: Acute (2) Hyponatremia: Status: Acute (3) History of endoscopic retrograde cholangiopancreatography: Status: Chronic Permanent problem details: ERCP with removal of biliary stent (4) Hepatobiliary cancer: Status: Acute (5) Intrahepatic bile duct dilation: Status: Chronic (6) Diabetes mellitus with hyperglycemia, without long-term current use of insulin: Status: Chronic Qualifiers: Diabetes mellitus type: type 2 Qualified Code(s): E11.65 - Type 2 diabetes mellitus with hyperglycemia (7) Generalized weakness: Status: Acute (8) Fall: Status: Acute (9) Chronic hyponatremia: Status: Acute Reason for Visit Reason for Visit: fever, weakness/cancer pt Hospital Course Hospital Course 68-year-old male with history of cholangiocarcinoma/hepatobiliary cancer, follows up with Dr. Nicolas, PICC line was requested on which I am trying to arrange before her discharge, patient was admitted because of a fall related generalized weakness, she was diagnosed with UTI and dehydration. Her leukocytosis improved with use of IV fluids and antibiotics. Patient is clinically doing much better, did well with physical therapy, she remained afebrile, urine culture requested. Blood cultures negative to date. She could go home on 5-day antibiotic course. Patient is endorsing lack of appetite, she is trying to drink Ensure twice a day I have encouraged her to take it 3 times a day or at least with meals. Patient remains full code, she wants to get the treatment for her metastatic hepatobiliary cancer. She lives with her at home. Physical Exam Narrative: Nonfocal neuro exam Good strength of upper and lower extremities Remarkable recovery overnight Hemodynamically stable Afebrile S1, S2 Abdomen soft Daughter at the bedside Patient eating breakfast Doing well on room air Discharge Data Studies Completed and Pending Completed Studies During Hospitalization Category Date Time Status CT abdomen pelvis w con* [id number] Stat Cat Scan 07/27/22 15:41 Completed XR chest 1V portable [id number] Stat Exams 07/27/22 15:03 Completed Pending at discharge Category Date Time Status Blood Culture Stat Lab 07/27/22 15:18 Results Radiology Impressions Chest X-Ray 07/27/22 15:03 IMPRESSION: There is blunting of the right costophrenic angle suggestive of a small pleural effusion. Abdomen/Pelvis CT 07/27/22 15:41 IMPRESSION: 1. Multiple heterogeneous hepatic lesions consistent with metastatic disease. There is heterogeneous density in the gallbladder fossa which can not be differentiated from the adjacent 2nd duodenal segment or pancreatic head raising concern for tumoral extension. 2. There is a heterogeneous lesion along the right lower quadrant peritoneum extending through the transverse abdominus muscle consistent with metastatic disease. 3. There are air-fluid levels in the distal colon suggesting mild nonspecific colitis versus other diarrheal illness. 4. Small right pleural effusion with adjacent compressive atelectasis. Laboratory Results WBC 13.0 10^3/uL (4.0-10.0) H 07/28/22 03:57 RBC 3.65 10^6/uL (4.1-5.3) L 07/28/22 03:57 Hgb 9.1 g/dL (11.5-15.3) L 07/28/22 03:57 Hct 28.4 % (37.0-47.0) L 07/28/22 03:57 MCV 77.8 fl (81-99) L 07/28/22 03:57 MCH 24.9 pg (28.0-34.0) L 07/28/22 03:57 MCHC 32.0 g/dL (30.0-36.0) 07/28/22 03:57 RDW 15.2 % (12.1-15.1) H 07/28/22 03:57 Plt Count 225 10^3/cmm (130-400) 07/28/22 03:57 MPV 11.6 fL (7.4-10.4) H 07/28/22 03:57 Neut % (Auto) 85.1 % 07/28/22 03:57 Lymph % (Auto) 6.8 % 07/28/22 03:57 [place] % (Auto) 7.4 % 07/28/22 03:57 Eos % (Auto) 0.0 % 07/28/22 03:57 Baso % (Auto) 0.2 % 07/28/22 03:57 Neut # (Auto) 11.10 10^3/uL (1.8-7.7) H 07/28/22 03:57 Lymph # (Auto) 0.9 10^3/uL (0.8-4.8) 07/28/22 03:57 [place] # (Auto) 1.0 10^3/uL (0.2-0.9) H 07/28/22 03:57 Eos # (Auto) 0.0 10^3/uL (0.0-0.8) 07/28/22 03:57 Baso # (Auto) 0.0 10^3/uL (0.0-0.1) 07/28/22 03:57 Nucleated RBC % (auto) 0 % 07/28/22 03:57 Nucleated RBCs # 0.0 /100WBC 07/28/22 03:57 Sodium 132 mmol/L (136-145) L 07/28/22 03:57 Potassium 3.7 mmol/L (3.5-5.1) 07/28/22 03:57 Chloride 97 mmol/L (98-107) L 07/28/22 03:57 Carbon Dioxide 24 mmol/L (22-29) 07/28/22 03:57 Anion Gap 14.7 (5-19) 07/28/22 03:57 BUN 19 mg/dL (8-23) 07/28/22 03:57 Creatinine 0.4 mg/dL (0.5-0.9) L 07/28/22 03:57 GFR Calculation Not Reportable 07/28/22 03:57 Glucose 159 mg/dL (65-115) H 07/28/22 03:57 Calculated Osmolality 280 mOsm/kg (285-295) L 07/28/22 03:57 Calcium 9.0 mg/dL (8.5-10.5) 07/28/22 03:57 Magnesium 1.4 mg/dL (1.7-2.3) L 07/28/22 03:57 Total Bilirubin 1.7 mg/dL (0.15-1.2) H 07/27/22 15:07 AST 150 U/L (0-32) H 07/27/22 15:07 ALT 74 U/L (0-33) H 07/27/22 15:07 Alkaline Phosphatase 515 U/L (35-105) H 07/27/22 15:07 Ammonia 38 umol/L (11-51) 07/27/22 16:25 C-Reactive Protein 243.6 mg/L (0.0-4.9) H 07/28/22 03:57 Total Protein 6.9 g/dL (6.6-8.7) 07/27/22 15:07 Albumin 2.9 g/dL (3.5-5.2) L 07/27/22 15:07 Globulin 4.0 g/dL (1.3-4.6) 07/27/22 15:07 Lipase 8 U/L (13-60) L 07/27/22 15:07 Procalcitonin 12.44 ng/mL (0-0.5) H 07/27/22 15:07 Urine Color Leroy (Yellow) 07/27/22 15:34 Urine Appearance Sl hazy (CLEAR) A 07/27/22 15:34 Urine pH 5 (5-7) 07/27/22 15:34 Ur Specific [place] 1.020 (1.005-1.030) 07/27/22 15:34 Urine Protein 1+ (Negative) H 07/27/22 15:34 Urine Glucose (UA) Trace (Normal) H 07/27/22 15:34 Urine Ketones 1+ (Negative) H 07/27/22 15:34 Urine Blood 2+ (Negative) H 07/27/22 15:34 Urine Nitrate Negative (Negative) 07/27/22 15:34 Urine Bilirubin 2+ (Negative) H 07/27/22 15:34 Urine Urobilinogen 4+ mg/dL (Negative) H 07/27/22 15:34 Ur Leukocyte Esterase 2+ (Negative) H 07/27/22 15:34 Urine RBC 10-15 /hpf (0-2) H 07/27/22 15:34 Urine WBC 25-40 /hpf (0-5) H 07/27/22 15:34 Ur Squamous Epith Cells 15-25 /hpf (0-5) H 07/27/22 15:34 Amorphous Sediment Not Reportable 07/27/22 15:34 Urine Bacteria 1+ /hpf (NONE) H 07/27/22 15:34 Coronavirus 229E (PCR) Not detected (NOT DETECT) 07/27/22 15:43 SARS-CoV-2 (PCR) Not detected (NOT DETECT) 07/27/22 15:43 Vitals Last Vital Signs Temp 98.0 F 07/28/22 08:00 Pulse 72 07/28/22 08:00 Resp 18 07/28/22 08:00 BP 119/67 07/28/22 08:00 Pulse Ox 94 07/28/22 08:00 O2 Del Method Room Air 07/28/22 08:00 Discharge Plan Discharge Patient Disposition: Home Condition: Stable Prescriptions: New levofloxacin 750 mg tablet 750 mg PO DAILY 7 Days Qty: 7 0RF Continued nitroglycerin 0.4 mg tablet, sublingual 0.4 mg sublingual Q5M PRN (Reason: chest pain) 30 Days Qty: 30 2RF Rx Instructions: do not exceed 3 doses per episode metformin 500 mg tablet extended release 24 hr 2,000 mg PO DAILY Qty: 120 2RF oxycodone 5 mg tablet 5 mg PO QID PRN (Reason: pain) 30 Days Qty: 120 0RF omeprazole magnesium [Prilosec OTC] 20 mg Tablet,Delayed Release (Dr/Ec) 20 mg PO DAILY PRN (Reason: Heartburn) Discharge Orders: Discharge Order (Routine); Ordered 07/28/22 Ordered By: Tiera Gandara Referrals: Aryan Cannon, [employer] [Primary Care Provider] - 08/07/22 10:40 am Marco A Nicolas MD [Hospitalist] - 07/29/22 2:00 pm (Dressing change) Discharge Diet: Regular Discharge Activity: Increase activity as tolerated Patient Instructions: Levofloxacin (By mouth), Hyponatremia (DC), Weakness (DC), PICC (Peripherally Inserted Central Catheter) (DC), Opioid Safety, Pain Management Discharge Attestations Time Spent in Discharge Care*: greater than 30 min Quality Metrics Clinical Quality Measures [ No reported AMI, CVA or VTE this stay] Coding Level of Care Code Acute Code for Chg Fwd Diagnoses Cystitis N30.90 Hyponatremia E87.1 History of endoscopic retrograde cholangiopancreatography Z98.890 Hepatobiliary cancer C24.9 Intrahepatic bile duct dilation K83.8 Diabetes mellitus with hyperglycemia, without long-term current use of insulin E11.65 Diabetes mellitus type: type 2 Generalized weakness R53.1 Fall W19.XXXA Chronic hyponatremia E87.1
[2022-07-28] MEDS: sodium chloride 0.9% 1,000 ML 75 ML IV (10:26)
[2022-07-28 11:44] VITALS: BP 110/69; PULSE 84; RESP 18; TEMP 37; O2SAT 94
--- NOTE | 2022-07-28 12:38 | XR_ITS ---
WS: [id number] XR chest 1V portable [id number] REASON FOR EXAM: PICC Line placement FINDINGS: There has been placement of a right arm PICC line. Tip of the catheter is distal to the cavoatrial ju nction. Position of the PICC line was discussed on the phone with the technologist and PICC line team. It was recommended to retract the catheter approximately 2 cm. This would put the tip of the catheter in th e distal most SVC near the cavoatrial junction. Instructions were understood. XR/XR chest 1V portable [id number] IMPRESSION: PICC line placement with modification of positioning as above.
[2022-07-28 16:52] VITALS: BP 110/69; PULSE 84; RESP 18; TEMP 37; O2SAT 94
== END 2022-07-28 16:53 | disposition home or self-care (01) ==
LOC: ER 19:37 → MEDSURG 20:20
PROVIDERS: Admitting Provider Internal Medicine; Emergency Provider Family Medicine; PCP Nurse Practitioner; Visit Provider Internal Medicine
DX: C24.9 Malignant neoplasm of biliary tract, unspecified (principal); C78.89 Secondary malignant neoplasm of other digestive organs; E87.1 Hypo-osmolality and hyponatremia; N39.0 Urinary tract infection, site not specified; E11.65 Type 2 diabetes mellitus with hyperglycemia; I10 Essential (primary) hypertension; D72.829 Elevated white blood cell count, unspecified; J90 Pleural effusion, not elsewhere classified; I44.4 Left anterior fascicular block; Z79.84 Long term (current) use of oral hypoglycemic drugs
CPT/HCPCS: 36415; 36569; 71045; 74177; 80048; 80053; 81001; 82140; 83690; 83735; 84145; 85025; 86140; 87040; 87635; 93005; 96365; 96372; 96375; 97110; 97161; 99285; G0378; J0696; J1644; J2405; J7030; Q9967

== ENCOUNTER 2022-07-31 08:00 | Oncology outpatient (recurring) (ONCR) | payer MEDICARE, SELFPAY ==
[2022-07-29 14:15] VITALS: BP 122/72; PULSE 103; RESP 18; TEMP 36.2; O2SAT 98
[2022-07-31 08:40] LABS: Basophils # 0.1 10^3/uL (0.0-0.1); Basophils % 0.3 %; Eosinophils % 0.2 %; Hemoglobin 9.6 g/dL (11.5-15.3); Lymphocytes # 1.3 10^3/uL (0.8-4.8); Lymphocytes % 7.8 %; Mean Corpuscular Hemoglobin 24.7 pg (28.0-34.0); Mean Corpuscular Volume 77.3 fl (81-99); Mean Platelet Volume 9.7 fL (7.4-10.4); Monocytes # 0.9 10^3/uL (0.2-0.9); Monocytes % 5.8 %; Neutrophils # 13.52 10^3/uL (1.8-7.7); Neutrophils % 83.8 %; Nucleated Red Blood Cells % 0 %; Platelet Count 341 10^3/cmm (130-400); Red Blood Count 3.88 10^6/uL (4.1-5.3); Red Cell Distribution Width 15.4 % (12.1-15.1); White Blood Count 16.1 10^3/uL (4.0-10.0)
[2022-07-31 08:45] VITALS: BP 100/69; PULSE 88; TEMP 36; O2SAT 95
[2022-07-31 09:14] LABS: Alanine Aminotransferase 27 U/L (0-33); Albumin Level 2.6 g/dL (3.5-5.2); Alkaline Phosphatase 381 U/L (35-105); Aspartate Amino Transferase 34 U/L (0-32); Blood Urea Nitrogen 12 mg/dL (8-23); Calcium 8.8 mg/dL (8.5-10.5); Carbon Dioxide 23 mmol/L (22-29); Chloride 97 mmol/L (98-107); Globulin 3.5 g/dL (1.3-4.6); Glucose 197 mg/dL (65-115); Osmolality Calculated 277 mOsm/kg (285-295); Sodium 131 mmol/L (136-145); Total Bilirubin 1.1 mg/dL (0.15-1.2); Total Protein 6.1 g/dL (6.6-8.7)
[2022-07-31 09:15] LABS: Thyroid Stimulating Hormone 1.69 uIU/mL (0.27-4.20)
[2022-07-31 09:18] LABS: Anion Gap 15.7 (5-19); Potassium 4.7 mmol/L (3.5-5.1)
[2022-07-31 10:15] LABS: Cortisol Random 19.86 ug/dL (2.47-19.5)
[2022-07-31 10:32] LABS: Immunoglobulin IGG 930 mg/dL (700-1600)
[2022-07-31] MEDS: sodium chloride 0.9% 250 ML 100 ML IV (10:52)
[2022-07-31] MEDS: famotidine 20 mg/2 mL INJ IVP (10:56)
[2022-07-31] MEDS: diphenhydrAMINE 50 mg/mL SDV 1mL 25 MG IVP (10:56)
[2022-07-31] MEDS: fosaprepitant 150 MG in sodium chloride 0.9% 150 ML 300 MG IV (11:02)
[2022-07-31] MEDS: OLANZapine 5 mg TABLET PO (11:05)
[2022-07-31] MEDS: palonosetron 0.25 mg/5 mL SDV IVP (11:36)
[2022-07-31] MEDS: durvalumab 1,500 MG in sodium chloride 0.9% 250 ML 280 MG IV (12:00)
[2022-07-31] MEDS: FUROsemide 10 mg/mL SDV 2mL 20 MG IVP (14:58)
[2022-07-31] MEDS: potassium chloride 20 MEQ in sodium chloride 0.9% 500 ML 500 MEQ IV (15:02)
[2022-07-31 16:21] VITALS: BP 99/65; PULSE 80; TEMP 35.8; O2SAT 96
== END 2022-07-31 23:59 | disposition home or self-care (01) ==
PROVIDERS: PCP Nurse Practitioner; Visit Provider Internal Medicine Medical Oncology
DX: Z51.11 Encounter for antineoplastic chemotherapy (principal); C22.1 Intrahepatic bile duct carcinoma; C77.2 Secondary and unspecified malignant neoplasm of intra-abdominal lymph nodes; Z79.52 Long term (current) use of systemic steroids; Z79.899 Other long term (current) drug therapy; Z95.828 Presence of other vascular implants and grafts
CPT/HCPCS: 80053; 82533; 82784; 84443; 85025; 96366; 96367; 96375; 96413; 96417; 99214; J1100; J1200; J1453; J1642; J1940; J2469; J3475; J3480; J3490; J7030; J7040; J7050; J9060; J9173; J9201

== ENCOUNTER 2022-08-21 08:00 | Oncology outpatient (recurring) (ONCR) | payer MEDICARE, SELFPAY ==
[2022-08-05 14:10] VITALS: BP 109/69; PULSE 84; RESP 18; TEMP 36.6; O2SAT 99
[2022-08-05 14:23] LABS: Basophils % 0.2 %; Hematocrit 29.6 % (37.0-47.0); Hemoglobin 9.7 g/dL (11.5-15.3); Lymphocytes % 15.9 %; Mean Corpuscular HGB Conc 32.8 g/dL (30.0-36.0); Mean Corpuscular Hemoglobin 25.3 pg (28.0-34.0); Mean Corpuscular Volume 77.3 fl (81-99); Mean Platelet Volume 9.7 fL (7.4-10.4); Monocytes # 0.3 10^3/uL (0.2-0.9); Monocytes % 5.3 %; Neutrophils # 4.66 10^3/uL (1.8-7.7); Neutrophils % 77.8 %; Nucleated Red Blood Cells % 0 %; Platelet Count 147 10^3/cmm (130-400); Red Blood Count 3.83 10^6/uL (4.1-5.3); Red Cell Distribution Width 16.3 % (12.1-15.1)
[2022-08-05 14:40] LABS: Alanine Aminotransferase 54 U/L (0-33); Albumin Level 2.7 g/dL (3.5-5.2); Alkaline Phosphatase 718 U/L (35-105); Anion Gap 14.8 (5-19); Aspartate Amino Transferase 144 U/L (0-32); Blood Urea Nitrogen 11 mg/dL (8-23); Calcium 7.9 mg/dL (8.5-10.5); Carbon Dioxide 24 mmol/L (22-29); Chloride 95 mmol/L (98-107); Globulin 2.8 g/dL (1.3-4.6); Glucose 190 mg/dL (65-115); Iron 11 ug/dL (37-145); Osmolality Calculated 274 mOsm/kg (285-295); Percent Saturation 7.4 % (20-50); Potassium 3.8 mmol/L (3.5-5.1); Sodium 130 mmol/L (136-145); Total Bilirubin 1.2 mg/dL (0.15-1.2); Total Iron Binding Capacity 147 mcg/dl; Total Protein 5.5 g/dL (6.6-8.7); Unsaturated Iron Binding 136 ug/dL (112-347)
[2022-08-07 08:03] VITALS: BMI 30.9
[2022-08-07 09:00] LABS: Basophils % 0.1 %; Hematocrit 30.1 % (37.0-47.0); Hemoglobin 9.8 g/dL (11.5-15.3); Lymphocytes # 1.2 10^3/uL (0.8-4.8); Lymphocytes % 10.5 %; Mean Corpuscular HGB Conc 32.6 g/dL (30.0-36.0); Mean Corpuscular Volume 76.8 fl (81-99); Mean Platelet Volume 10.2 fL (7.4-10.4); Monocytes % 8.5 %; Neutrophils # 9.27 10^3/uL (1.8-7.7); Neutrophils % 80.4 %; Nucleated Red Blood Cells % 0 %; Platelet Count 108 10^3/cmm (130-400); Red Blood Count 3.92 10^6/uL (4.1-5.3); Red Cell Distribution Width 16.2 % (12.1-15.1); White Blood Count 11.5 10^3/uL (4.0-10.0)
[2022-08-07 09:30] LABS: Alanine Aminotransferase 42 U/L (0-33); Albumin Level 2.7 g/dL (3.5-5.2); Alkaline Phosphatase 674 U/L (35-105); Aspartate Amino Transferase 70 U/L (0-32); Blood Urea Nitrogen 9 mg/dL (8-23); Calcium 8.1 mg/dL (8.5-10.5); Carbon Dioxide 25 mmol/L (22-29); Chloride 95 mmol/L (98-107); Globulin 3.2 g/dL (1.3-4.6); Glucose 138 mg/dL (65-115); Osmolality Calculated 271 mOsm/kg (285-295); Sodium 130 mmol/L (136-145); Total Bilirubin 1.2 mg/dL (0.15-1.2); Total Protein 5.9 g/dL (6.6-8.7)
[2022-08-07] MEDS: sodium chloride 0.9% 100 ML 50 ML IV ×2 (10:45→13:26)
[2022-08-07] MEDS: diphenhydrAMINE 50 mg/mL SDV 1mL 25 MG IVP (11:07)
[2022-08-07] MEDS: OLANZapine 5 mg TABLET PO (11:09)
[2022-08-07] MEDS: famotidine 20 mg/2 mL INJ IVP (11:12)
[2022-08-07] MEDS: palonosetron 0.25 mg/5 mL SDV IVP (11:14)
[2022-08-07] MEDS: fosaprepitant 150 MG in sodium chloride 0.9% 150 ML 300 MG IV (11:49)
[2022-08-07] MEDS: FUROsemide 10 mg/mL SDV 2mL 20 MG IVP (14:48)
[2022-08-07] MEDS: potassium chloride 20 MEQ in sodium chloride 0.9% 500 ML 500 MEQ IV (15:01)
[2022-08-07 16:25] VITALS: BP 153/85; PULSE 84; RESP 20; TEMP 35.9; O2SAT 98
--- NOTE | 2022-08-07 17:26 | PC.NURSE ---
Sterile PICC line dressing change done after her patient's chemo infusion. No redness to the PICC line area or drainage. Biopatch applied to the area of insertion. Patient tolerated procedure and had no other questions or concerns.
[2022-08-14 12:00] LABS: Hematocrit 26.2 % (37.0-47.0); Hemoglobin 8.4 g/dL (11.5-15.3); Lymphocytes # 0.6 10^3/uL (0.8-4.8); Lymphocytes % 20.4 %; Mean Corpuscular HGB Conc 32.1 g/dL (30.0-36.0); Mean Corpuscular Hemoglobin 24.6 pg (28.0-34.0); Mean Corpuscular Volume 76.6 fl (81-99); Monocytes # 0.3 10^3/uL (0.2-0.9); Neutrophils # 2.22 10^3/uL (1.8-7.7); Neutrophils % 70.6 %; Nucleated Red Blood Cells % 0 %; Platelet Count 44 10^3/cmm (130-400); Red Blood Count 3.42 10^6/uL (4.1-5.3); Red Cell Distribution Width 16.5 % (12.1-15.1); White Blood Count 3.1 10^3/uL (4.0-10.0)
[2022-08-14 12:10] VITALS: BP 121/68; PULSE 83; RESP 18; TEMP 36.3; O2SAT 96
[2022-08-14 12:32] LABS: Alanine Aminotransferase 27 U/L (0-33); Albumin Level 2.7 g/dL (3.5-5.2); Alkaline Phosphatase 741 U/L (35-105); Anion Gap 15.5 (5-19); Aspartate Amino Transferase 49 U/L (0-32); Blood Urea Nitrogen 7 mg/dL (8-23); Calcium 8.1 mg/dL (8.5-10.5); Carbon Dioxide 25 mmol/L (22-29); Chloride 95 mmol/L (98-107); Globulin 2.7 g/dL (1.3-4.6); Glucose 173 mg/dL (65-115); Osmolality Calculated 276 mOsm/kg (285-295); Potassium 3.5 mmol/L (3.5-5.1); Slide Review Slide Review Perform; Sodium 132 mmol/L (136-145); Total Bilirubin 0.9 mg/dL (0.15-1.2); Total Protein 5.4 g/dL (6.6-8.7)
--- NOTE | 2022-08-14 16:10 | PC.NURSE ---
Patient came in for lab draw and Sterile PICC line dressing change. Labs drawn by PICC line then flushed per protocol. Sterile dressing changed afterwards with Biopatch applied. New end clave and end cap applied. Patient tolerated procedure and had no other questions.
[2022-08-21 08:30] VITALS: BP 110/71; PULSE 87; RESP 18; TEMP 36.1; O2SAT 94
[2022-08-21 08:45] LABS: Hematocrit 27.5 % (37.0-47.0); Hemoglobin 8.8 g/dL (11.5-15.3); Mean Corpuscular Hemoglobin 24.9 pg (28.0-34.0); Mean Corpuscular Volume 77.9 fl (81-99); Mean Platelet Volume 11.1 fL (7.4-10.4); Platelet Count 454 10^3/cmm (130-400); Red Blood Count 3.53 10^6/uL (4.1-5.3); Red Cell Distribution Width 18.9 % (12.1-15.1)
[2022-08-21 09:13] LABS: Alanine Aminotransferase 27 U/L (0-33); Albumin Level 2.8 g/dL (3.5-5.2); Alkaline Phosphatase 756 U/L (35-105); Anion Gap 15.1 (5-19); Aspartate Amino Transferase 49 U/L (0-32); Blood Urea Nitrogen 7 mg/dL (8-23); Calcium 8.1 mg/dL (8.5-10.5); Cancer Antigen 19 9 220.8 U/mL (0-35); Carbon Dioxide 25 mmol/L (22-29); Chloride 95 mmol/L (98-107); Globulin 2.9 g/dL (1.3-4.6); Glucose 180 mg/dL (65-115); Osmolality Calculated 275 mOsm/kg (285-295); Potassium 4.1 mmol/L (3.5-5.1); Sodium 131 mmol/L (136-145); Thyroid Stimulating Hormone 1.48 uIU/mL (0.27-4.20); Total Bilirubin 1.8 mg/dL (0.15-1.2); Total Protein 5.7 g/dL (6.6-8.7)
[2022-08-21 09:42] LABS: Slide Review Slide Review Perform; Total Cells Counted 100 (0-100)
[2022-08-21 09:43] LABS: Absolute Neutrophil 3.1 10^3/cmm (1.4-6.5); Band Neutrophils Absolute 0.1 10^3/cmm (0.0-1.2); Eosinophils 1 %; Lymphocytes 16 %; Lymphocytes Absolute 1.4 10^3/cmm (1.2-3.4); Monocytes Absolute 0.6 10^3/cmm (0.1-0.6); Platelet Estimate Normal (Normal); Segmented Neutrophils 60 %
[2022-08-21] MEDS: famotidine 20 mg/2 mL INJ IVP (12:47)
[2022-08-21] MEDS: palonosetron 0.25 mg/5 mL SDV IVP (12:47)
[2022-08-21] MEDS: sodium chloride 0.9% 250 ML 75 ML IV (12:47)
[2022-08-21] MEDS: fosaprepitant 150 MG in sodium chloride 0.9% 150 ML 300 MG IV (12:47)
[2022-08-21] MEDS: OLANZapine 5 mg TABLET PO (12:47)
[2022-08-21] MEDS: diphenhydrAMINE 50 mg/mL SDV 1mL 25 MG IVP (12:48)
[2022-08-21] MEDS: durvalumab 1,500 MG in sodium chloride 0.9% 250 ML 280 MG IV (13:59)
[2022-08-21] MEDS: FUROsemide 10 mg/mL SDV 2mL 20 MG IVP (16:37)
[2022-08-21] MEDS: potassium chloride 20 MEQ in sodium chloride 0.9% 500 ML 500 MEQ IV (16:40)
[2022-08-21 17:43] VITALS: BP 132/77; PULSE 80; RESP 18; TEMP 36.4; O2SAT 99
== END 2022-08-21 23:59 | disposition home or self-care (01) ==
PROVIDERS: Nurse Practitioner Family; PCP Nurse Practitioner; Visit Provider Internal Medicine Medical Oncology
DX: Z51.11 Encounter for antineoplastic chemotherapy (principal); C22.1 Intrahepatic bile duct carcinoma; C79.89 Secondary malignant neoplasm of other specified sites; R74.8 Abnormal levels of other serum enzymes; R79.89 Other specified abnormal findings of blood chemistry; Z79.899 Other long term (current) drug therapy; D50.9 Iron deficiency anemia, unspecified
CPT/HCPCS: 36592; 80053; 83540; 83550; 84443; 85007; 85025; 86301; 96366; 96367; 96374; 96375; 96413; 96417; 99214; J1100; J1200; J1453; J1642; J1940; J2469; J3475; J3480; J3490; J7030; J7040; J7050; J9060; J9173; J9201

== ENCOUNTER → 2022-09-05 10:14 | Day surgery (SDC) | payer MEDICARE, SELFPAY ==
[2022-09-05 10:46] VITALS: BP 122/72; PULSE 100; RESP 18; TEMP 36.3; O2SAT 95
[2022-09-05 11:57] VITALS: BP 134/75; PULSE 100; RESP 18; TEMP 36.9; O2SAT 93
[2022-09-05 12:15] VITALS: BP 132/96; PULSE 102; RESP 18; TEMP 36.8; O2SAT 95
[2022-09-05 12:30] VITALS: BP 141/91; PULSE 98; RESP 18; TEMP 36.8; O2SAT 95
[2022-09-05 13:30] VITALS: BP 144/82; PULSE 103; RESP 18; TEMP 37.3; O2SAT 96
[2022-09-05 13:48] VITALS: BP 127/84; PULSE 108; RESP 18; TEMP 37.1; O2SAT 95
[2022-09-05] MEDS: sodium chloride 0.9% 100 mL Bag 50 ML IV (13:48)
--- NOTE | 2022-09-05 13:48 | PC.NURSE ---
Pt to GI infusions [facility] Pt Hg 09/04/22 noted 7.6. Pt to receive 1 unit PRBC's as ordered by Dr. Pinzon. Pt tolerated blood transfusion well. No reaction noted. Pt to follow up with CTC on .
== END ==
PROVIDERS: PCP Nurse Practitioner; Visit Provider Internal Medicine Medical Oncology
DX: C22.1 Intrahepatic bile duct carcinoma (principal); Z79.899 Other long term (current) drug therapy
CPT/HCPCS: 36430; 86850; 86900; 86920; P9016

== ENCOUNTER → 2022-09-11 11:10 | Outpatient (BNVA) | payer MEDICARE, SELFPAY | PROVIDERS: PCP Nurse Practitioner; Visit Provider Internal Medicine Medical Oncology | DX: C22.1 Intrahepatic bile duct carcinoma (principal); C77.8 Secondary and unspecified malignant neoplasm of lymph nodes of multiple regions; D50.9 Iron deficiency anemia, unspecified; Z79.899 Other long term (current) drug therapy; Z99.3 Dependence on wheelchair | CPT/HCPCS: 99215 ==

== ENCOUNTER 2022-09-16 15:18 | Outpatient (CLI) | payer MEDICARE, SELFPAY ==
[2022-09-16] MEDS: iohexol 350 mg/mL 500 mL Btl (per mL) PO (15:54)
--- NOTE | 2022-09-16 16:30 | CT_ITS ---
WS: [id number] CT ABDOMEN PELVIS TECHNIQUE: Contrast-enhanced CT of the abdomen and pelvis with coronal and sagittal reformatted image s. CLINICAL INFORMATION: follow up for liver mets COMPARISON: CT July 27, 2022 DLP: 409.[address] scans at [facility] use at least one of these dose optimization techniques: automated e xposure control; mA and/or kV adjustment per patient size (includes targeted exams where dose is matc hed to clinical indication); or iterative reconstruction. FINDINGS: Again seen is diffuse hepatic metastatic disease. Largest lesion in the RIGHT hepatic lobe posteriorl y measuring 5.1 x 4.5 cm similar to previous. Slightly improved hepatic metastasis in the RIGHT hepat ic lobe posterior laterally with a few lesions slightly smaller today. Confluent low-attenuation radha pheral enhancing lesions extending near the eleazar hepatis are similar in appearance. No significant p rogression. Evidence of cavernous transformation portal vein. Mild intrahepatic biliary ductal dilatation appears unchanged. Splenic vein is patent. 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 Small RIGHT pleural effusion. RIGHT basilar atelectasis. Mild splenomegaly. Splenic granulomas. Small esophageal hiatal hernia. Loss of the fat plane between the pancreatic head and adjacent liver is un changed. Mild thickening of the adrenal glands. Normal renal parenchymal enhancement. Cortical scarri ng both kidneys. Normal caliber abdominal aorta. Celiac and SMA are patent. Slight improvement in the RIGHT lower peritoneal metastasis today measuring 2.3 x 2.3 compared to 2.9 x 2.5 CM. Additional mesenteric metastatic nodule in the LEFT lower quadrant also improved today mackenzie suring 1.3 cm compared to 2.1 cm previous. Additional smaller mesenteric implants in the cul-de-sac a lso appears slightly improved. Additional tiny areas of nodularity scattered within the mesentery anamaria ears stable to improved compared to previous compatible with peritoneal carcinomatosis. Small amount of free fluid in the pelvis. Advanced spondylitic changes lumbar spine. Dorsal exophytic uterine lesion likely fibroid. CT/CT abdomen pelvis w con* [id number] IMPRESSION: 1. Slight interval improvement in the liver metastasis. Dominant lesion measur es 5.0 x 4.5 cm the RIGHT hepatic lobe posteriorly with more central necrosis t jaime. Slightly improved lesions in the RIGHT hepatic lobe laterally. Some of th fifi demonstrate more central necrosis. 2. Confluent lesions extending to the eleazar hepatis appears unchanged. No evid ence of progression. 3. 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 4. Peritoneal implant RIGHT lower quadrant and LEFT lower quadrant described a josé have decreased in size but persists 5. Additional smaller mesenteric implants in the cul-de-sac also appears sligh tly improved adjacent to the sigmoid colon. 6. Evidence of mild peritoneal carcinomatosis appears slightly improved. 7. Small RIGHT pleural effusion. 8. Loss of the fat planes involving the pancreatic head and traversing duodenu m similar to previous. Tumor extension in these areas not excluded. 9. Stable mild intrahepatic biliary ductal dilatation.
[2022-09-16] MEDS: iohexol 350 mg/mL 500 mL Btl (per mL) IV (16:43)
== END 2022-09-16 15:19 | disposition home or self-care (01) ==
LOC: RAD 15:23
PROVIDERS: PCP Nurse Practitioner; Visit Provider Internal Medicine Medical Oncology
DX: C22.1 Intrahepatic bile duct carcinoma (principal); C78.7 Secondary malignant neoplasm of liver and intrahepatic bile duct; C78.6 Secondary malignant neoplasm of retroperitoneum and peritoneum; I81 Portal vein thrombosis; J90 Pleural effusion, not elsewhere classified
CPT/HCPCS: 74177; Q9967

== ENCOUNTER 2022-09-18 09:00 | Oncology outpatient (recurring) (ONCR) | payer MEDICARE, SELFPAY ==
[2022-08-28 08:03] VITALS: BP 100/68; PULSE 97; RESP 18; TEMP 36.1; O2SAT 95
[2022-08-28 08:13] LABS: Basophils % 0.2 %; Hematocrit 26.4 % (37.0-47.0); Hemoglobin 8.5 g/dL (11.5-15.3); Lymphocytes # 1.2 10^3/uL (0.8-4.8); Lymphocytes % 11.3 %; Mean Corpuscular HGB Conc 32.2 g/dL (30.0-36.0); Mean Corpuscular Hemoglobin 24.6 pg (28.0-34.0); Mean Corpuscular Volume 76.5 fl (81-99); Mean Platelet Volume 9.7 fL (7.4-10.4); Monocytes # 1.2 10^3/uL (0.2-0.9); Neutrophils % 71.1 %; Nucleated Red Blood Cells % 0 %; Platelet Count 186 10^3/cmm (130-400); Red Blood Count 3.45 10^6/uL (4.1-5.3); White Blood Count 10.6 10^3/uL (4.0-10.0)
[2022-08-28 08:32] LABS: Alanine Aminotransferase 42 U/L (0-33); Albumin Level 2.9 g/dL (3.5-5.2); Alkaline Phosphatase 761 U/L (35-105); Anion Gap 15.2 (5-19); Aspartate Amino Transferase 60 U/L (0-32); Blood Urea Nitrogen 11 mg/dL (8-23); Calcium 8.7 mg/dL (8.5-10.5); Carbon Dioxide 24 mmol/L (22-29); Chloride 94 mmol/L (98-107); Globulin 2.8 g/dL (1.3-4.6); Glucose 314 mg/dL (65-115); Osmolality Calculated 279 mOsm/kg (285-295); Potassium 4.2 mmol/L (3.5-5.1); Sodium 129 mmol/L (136-145); Total Bilirubin 1.2 mg/dL (0.15-1.2); Total Protein 5.7 g/dL (6.6-8.7)
[2022-08-28 09:04] LABS: Slide Review Slide Review Perform
[2022-08-28] MEDS: sodium chloride 0.9% 250 ML 100 ML IV (11:47)
[2022-08-28] MEDS: diphenhydrAMINE 50 mg/mL SDV 1mL 25 MG IVP (11:49)
[2022-08-28] MEDS: famotidine 20 mg/2 mL INJ IVP (11:49)
[2022-08-28] MEDS: OLANZapine 5 mg TABLET PO (11:49)
[2022-08-28] MEDS: palonosetron 0.25 mg/5 mL SDV IVP (11:49)
[2022-08-28] MEDS: fosaprepitant 150 MG in sodium chloride 0.9% 150 ML 300 MG IV (11:54)
[2022-08-28] MEDS: FUROsemide 10 mg/mL SDV 2mL 20 MG IVP (14:57)
[2022-08-28] MEDS: potassium chloride 20 MEQ in sodium chloride 0.9% 500 ML 500 MEQ IV (14:57)
[2022-08-28 16:45] VITALS: BP 137/83; PULSE 82; TEMP 35.9; O2SAT 99
--- NOTE | 2022-08-28 17:20 | PC.NURSE ---
PICC line dressing completed via sterile technique. Pt tolerated well. No redness or irritation noted. - JW
[2022-09-04 11:02] VITALS: BP 113/72; PULSE 93; RESP 16; TEMP 36.2; O2SAT 96; BMI 28.7
[2022-09-04 11:13] LABS: Basophils % 0.1 %; Hematocrit 23.5 % (37.0-47.0); Hemoglobin 7.6 g/dL (11.5-15.3); Lymphocytes # 0.9 10^3/uL (0.8-4.8); Lymphocytes % 12.4 %; Mean Corpuscular HGB Conc 32.3 g/dL (30.0-36.0); Mean Corpuscular Volume 77.3 fl (81-99); Mean Platelet Volume 11.2 fL (7.4-10.4); Monocytes # 1.1 10^3/uL (0.2-0.9); Monocytes % 14.1 %; Neutrophils # 5.48 10^3/uL (1.8-7.7); Neutrophils % 72.5 %; Nucleated Red Blood Cells % 0 %; Platelet Count 73 10^3/cmm (130-400); Red Blood Count 3.04 10^6/uL (4.1-5.3); Red Cell Distribution Width 19.4 % (12.1-15.1); White Blood Count 7.6 10^3/uL (4.0-10.0)
[2022-09-04 11:42] LABS: Alanine Aminotransferase 24 U/L (0-33); Albumin Level 2.9 g/dL (3.5-5.2); Alkaline Phosphatase 635 U/L (35-105); Anion Gap 14.2 (5-19); Aspartate Amino Transferase 31 U/L (0-32); Blood Urea Nitrogen 11 mg/dL (8-23); Calcium 8.2 mg/dL (8.5-10.5); Carbon Dioxide 24 mmol/L (22-29); Chloride 92 mmol/L (98-107); Globulin 2.9 g/dL (1.3-4.6); Glucose 213 mg/dL (65-115); Osmolality Calculated 268 mOsm/kg (285-295); Potassium 4.2 mmol/L (3.5-5.1); Sodium 126 mmol/L (136-145); Thyroid Stimulating Hormone 0.89 uIU/mL (0.27-4.20); Total Bilirubin 1.2 mg/dL (0.15-1.2); Total Protein 5.8 g/dL (6.6-8.7)
--- NOTE | 2022-09-04 17:07 | PC.NURSE ---
PICC line dressing change completed for pt via sterile technique. Pt tolerated well. No redness or irritation noted. LAYTON
[2022-09-11 09:04] VITALS: BP 111/71; PULSE 101; RESP 18; TEMP 36.2; O2SAT 97
[2022-09-11 09:29] LABS: Basophils % 0.2 %; Hemoglobin 8.5 g/dL (11.5-15.3); Lymphocytes # 0.9 10^3/uL (0.8-4.8); Lymphocytes % 7.4 %; Mean Corpuscular HGB Conc 31.5 g/dL (30.0-36.0); Mean Corpuscular Volume 79.4 fl (81-99); Mean Platelet Volume 9.8 fL (7.4-10.4); Monocytes # 1.3 10^3/uL (0.2-0.9); Monocytes % 10.7 %; Neutrophils # 9.71 10^3/uL (1.8-7.7); Neutrophils % 79.2 %; Nucleated Red Blood Cells % 0 %; Platelet Count 496 10^3/cmm (130-400); Red Cell Distribution Width 21.1 % (12.1-15.1); White Blood Count 12.2 10^3/uL (4.0-10.0)
[2022-09-11 10:10] LABS: Alanine Aminotransferase 42 U/L (0-33); Albumin Level 2.5 g/dL (3.5-5.2); Alkaline Phosphatase 739 U/L (35-105); Anion Gap 15.2 (5-19); Aspartate Amino Transferase 72 U/L (0-32); Blood Urea Nitrogen 15 mg/dL (8-23); Calcium 8.5 mg/dL (8.5-10.5); Carbon Dioxide 22 mmol/L (22-29); Chloride 91 mmol/L (98-107); Globulin 3.3 g/dL (1.3-4.6); Glucose 229 mg/dL (65-115); Osmolality Calculated 266 mOsm/kg (285-295); Potassium 4.2 mmol/L (3.5-5.1); Sodium 124 mmol/L (136-145); Total Bilirubin 2.3 mg/dL (0.15-1.2); Total Protein 5.8 g/dL (6.6-8.7)
[2022-09-11 13:56] LABS: Cancer Antigen 19 9 523.7 U/mL (0-35)
[2022-09-18 09:34] VITALS: BP 116/72; PULSE 92; RESP 18; TEMP 35.7; O2SAT 97
[2022-09-18 09:57] LABS: Basophils % 0.2 %; Eosinophils % 0.1 %; Hemoglobin 8.8 g/dL (11.5-15.3); Lymphocytes # 1.1 10^3/uL (0.8-4.8); Lymphocytes % 6.6 %; Mean Corpuscular HGB Conc 31.4 g/dL (30.0-36.0); Mean Corpuscular Hemoglobin 25.4 pg (28.0-34.0); Mean Corpuscular Volume 80.9 fl (81-99); Mean Platelet Volume 9.1 fL (7.4-10.4); Monocytes # 1.1 10^3/uL (0.2-0.9); Monocytes % 6.7 %; Neutrophils # 13.55 10^3/uL (1.8-7.7); Neutrophils % 84.6 %; Nucleated Red Blood Cells % 0 %; Platelet Count 323 10^3/cmm (130-400); Red Blood Count 3.46 10^6/uL (4.1-5.3); Red Cell Distribution Width 22.3 % (12.1-15.1)
[2022-09-18 10:06] LABS: Alanine Aminotransferase 20 U/L (0-33); Albumin Level 2.4 g/dL (3.5-5.2); Alkaline Phosphatase 549 U/L (35-105); Aspartate Amino Transferase 33 U/L (0-32); Blood Urea Nitrogen 9 mg/dL (8-23); Calcium 8.2 mg/dL (8.5-10.5); Carbon Dioxide 23 mmol/L (22-29); Chloride 93 mmol/L (98-107); Globulin 3.5 g/dL (1.3-4.6); Glucose 249 mg/dL (65-115); Osmolality Calculated 269 mOsm/kg (285-295); Sodium 126 mmol/L (136-145); Total Bilirubin 1.3 mg/dL (0.15-1.2); Total Protein 5.9 g/dL (6.6-8.7)
[2022-09-18 10:09] LABS: Anion Gap 14.8 (5-19); Potassium 4.8 mmol/L (3.5-5.1)
[2022-09-18] MEDS: iron sucrose 200 MG in sodium chloride 0.9% (100 ml) 100 ML 220 MG IV (11:29)
[2022-09-18] MEDS: durvalumab 1,500 MG in sodium chloride 0.9% 250 ML 280 MG IV (13:28)
[2022-09-18] MEDS: diphenhydrAMINE 50 mg/mL SDV 1mL 25 MG IVP (15:00)
[2022-09-18] MEDS: famotidine 20 mg/2 mL INJ IVP (15:05)
[2022-09-18] MEDS: OLANZapine 5 mg TABLET PO (15:09)
[2022-09-18] MEDS: palonosetron 0.25 mg/5 mL SDV IVP (15:11)
[2022-09-18] MEDS: fosaprepitant 150 MG in sodium chloride 0.9% 150 ML 300 MG IV (15:46)
[2022-09-18] MEDS: FUROsemide 10 mg/mL SDV 2mL 20 MG IVP (16:36)
[2022-09-18] MEDS: potassium chloride 20 MEQ in sodium chloride 0.9% 500 ML 500 MEQ IV (17:40)
[2022-09-18] MEDS: pegfilgrastim 6 mg/0.6 mL Kit (onpro) SUBCUT (18:11)
[2022-09-18 18:25] VITALS: BP 142/78; PULSE 89; RESP 18; TEMP 36.6; O2SAT 98
[2022-09-18] MEDS: sodium chloride 0.9% 250 ML 75 ML IV (18:52)
== END 2022-09-18 23:59 | disposition home or self-care (01) ==
PROVIDERS: Internal Medicine Medical Oncology; PCP Nurse Practitioner; Visit Provider Internal Medicine Medical Oncology
DX: Z51.12 Encounter for antineoplastic immunotherapy (principal); C22.1 Intrahepatic bile duct carcinoma; Z51.11 Encounter for antineoplastic chemotherapy; C77.8 Secondary and unspecified malignant neoplasm of lymph nodes of multiple regions; C78.6 Secondary malignant neoplasm of retroperitoneum and peritoneum; C78.5 Secondary malignant neoplasm of large intestine and rectum; J90 Pleural effusion, not elsewhere classified; D64.81 Anemia due to antineoplastic chemotherapy; T45.1X5A Adverse effect of antineoplastic and immunosuppressive drugs, initial encounter; D50.9 Iron deficiency anemia, unspecified; R11.2 Nausea with vomiting, unspecified; Z79.899 Other long term (current) drug therapy
CPT/HCPCS: 36592; 80053; 84443; 85025; 86301; 96366; 96367; 96375; 96377; 96413; 96417; 99215; J1100; J1200; J1453; J1642; J1756; J1940; J2469; J2506; J3475; J3480; J3490; J7030; J7040; J7050; J9060; J9173; J9201

== ENCOUNTER 2022-09-25 10:00 | Oncology outpatient (recurring) (ONCR) | payer MEDICARE, SELFPAY ==
[2022-09-22] MEDS: sodium chloride 0.9% 250 ML 75 ML IV (15:12)
[2022-09-22] MEDS: iron sucrose 200 MG in sodium chloride 0.9% (100 ml) 100 ML 220 MG IV (15:13)
[2022-09-22 16:00] VITALS: BP 114/67; PULSE 87; RESP 16; TEMP 36.1; O2SAT 99
[2022-09-22 16:40] VITALS: BP 118/65; PULSE 91; RESP 16; TEMP 35.6; O2SAT 98
[2022-09-25 09:33] VITALS: BP 107/66; PULSE 95; RESP 18; TEMP 36.2; O2SAT 97
[2022-09-25 09:58] LABS: Basophils # 0.1 10^3/uL (0.0-0.1); Basophils % 0.5 %; Hematocrit 24.8 % (37.0-47.0); Hemoglobin 7.8 g/dL (11.5-15.3); Lymphocytes # 1.2 10^3/uL (0.8-4.8); Lymphocytes % 6.2 %; Mean Corpuscular HGB Conc 31.5 g/dL (30.0-36.0); Mean Corpuscular Hemoglobin 25.6 pg (28.0-34.0); Mean Corpuscular Volume 81.3 fl (81-99); Mean Platelet Volume 9.7 fL (7.4-10.4); Monocytes # 0.9 10^3/uL (0.2-0.9); Monocytes % 4.7 %; Neutrophils # 17.06 10^3/uL (1.8-7.7); Neutrophils % 87.4 %; Nucleated Red Blood Cells % 0 %; Platelet Count 112 10^3/cmm (130-400); Red Blood Count 3.05 10^6/uL (4.1-5.3); Red Cell Distribution Width 22.1 % (12.1-15.1); White Blood Count 19.5 10^3/uL (4.0-10.0)
[2022-09-25 10:15] LABS: Alanine Aminotransferase 12 U/L (0-33); Albumin Level 2.5 g/dL (3.5-5.2); Alkaline Phosphatase 409 U/L (35-105); Anion Gap 15.7 (5-19); Aspartate Amino Transferase 19 U/L (0-32); Blood Urea Nitrogen 10 mg/dL (8-23); Calcium 8.4 mg/dL (8.5-10.5); Carbon Dioxide 24 mmol/L (22-29); Chloride 96 mmol/L (98-107); Glucose 213 mg/dL (65-115); Osmolality Calculated 279 mOsm/kg (285-295); Potassium 3.7 mmol/L (3.5-5.1); Sodium 132 mmol/L (136-145); Total Bilirubin 1.2 mg/dL (0.15-1.2); Total Protein 5.5 g/dL (6.6-8.7)
[2022-09-25] MEDS: sodium chloride 0.9% 250 ML 100 ML IV (10:29)
[2022-09-25] MEDS: iron sucrose 200 MG in sodium chloride 0.9% (100 ml) 100 ML 220 MG IV (10:33)
[2022-09-25] MEDS: sodium chloride 0.9% 250 ML 75 ML IV (12:00)
[2022-09-25] MEDS: fosaprepitant 150 MG in sodium chloride 0.9% 150 ML 300 MG IV (13:20)
[2022-09-25] MEDS: palonosetron 0.25 mg/5 mL SDV IVP (14:03)
[2022-09-25] MEDS: OLANZapine 5 mg TABLET PO (14:04)
[2022-09-25] MEDS: famotidine 20 mg/2 mL INJ IVP (14:06)
[2022-09-25] MEDS: FUROsemide 10 mg/mL SDV 2mL 20 MG IVP (14:09)
[2022-09-25] MEDS: diphenhydrAMINE 50 mg/mL SDV 1mL 25 MG IVP (14:11)
[2022-09-25] MEDS: potassium chloride 20 MEQ in sodium chloride 0.9% 500 ML 500 MEQ IV (16:45)
[2022-09-25 17:25] VITALS: BP 133/84; PULSE 92; RESP 16; TEMP 36; O2SAT 94
== END 2022-09-26 23:59 | disposition home or self-care (01) ==
PROVIDERS: PCP Nurse Practitioner; Visit Provider Internal Medicine Medical Oncology
DX: C22.1 Intrahepatic bile duct carcinoma (principal); Z51.11 Encounter for antineoplastic chemotherapy; C77.8 Secondary and unspecified malignant neoplasm of lymph nodes of multiple regions; C78.6 Secondary malignant neoplasm of retroperitoneum and peritoneum; C78.5 Secondary malignant neoplasm of large intestine and rectum; Z79.899 Other long term (current) drug therapy
CPT/HCPCS: 36430; 80053; 85025; 86850; 86900; 86920; 96365; 96366; 96367; 96375; 96413; 96417; J1100; J1200; J1453; J1756; J1940; J2469; J3475; J3480; J3490; J7030; J7040; J7050; J9060; J9201; P9040

== ENCOUNTER → 2022-09-26 09:41 | Day surgery (SDC) | payer MEDICARE, SELFPAY ==
[2022-09-26] VITALS (10 sets, daily range): BP systolic 106–160; BP diastolic 59–80; PULSE 65–91; RESP 18; TEMP 35.8–36.1; O2SAT 96–99
[2022-09-26] MEDS: sodium chloride 0.9% 100 mL Bag 50 ML IV ×2 (10:42→14:35)
--- NOTE | 2022-09-26 14:35 | PC.NURSE ---
Pt referred to GI infusions from Oncology for two units PRBCs. Hg from 09/25/22 7.8. Pt tolerated transfusion without difficulty. No reaction noted. Pt to follow up with Oncology on .
== END ==
PROVIDERS: PCP Nurse Practitioner; Visit Provider Internal Medicine Medical Oncology
DX: D50.9 Iron deficiency anemia, unspecified (principal); Z79.899 Other long term (current) drug therapy
CPT/HCPCS: 36430; 86850; 86900; 86920; P9040

== ENCOUNTER 2022-10-09 09:14 | Oncology outpatient (recurring) (ONCR) | payer MEDICARE, SELFPAY ==
[2022-09-29 14:40] VITALS: BP 120/72; PULSE 96; RESP 16; TEMP 36.2; O2SAT 96
[2022-09-29] MEDS: iron sucrose 200 MG in sodium chloride 0.9% (100 ml) 100 ML 220 MG IV (14:51)
[2022-09-29 15:30] VITALS: BP 120/72; PULSE 92; RESP 16; TEMP 36.2; O2SAT 96
[2022-10-02 14:56] VITALS: BP 120/71; PULSE 67; RESP 18; TEMP 36.4; O2SAT 98
[2022-10-02] MEDS: iron sucrose 200 MG in sodium chloride 0.9% (100 ml) 100 ML 220 MG IV (14:57)
[2022-10-02 15:16] LABS: Basophils % 0.2 %; Hematocrit 26.7 % (37.0-47.0); Hemoglobin 8.7 g/dL (11.5-15.3); Lymphocytes # 0.8 10^3/uL (0.8-4.8); Lymphocytes % 15.5 %; Mean Corpuscular HGB Conc 32.6 g/dL (30.0-36.0); Mean Corpuscular Hemoglobin 26.6 pg (28.0-34.0); Mean Corpuscular Volume 81.7 fl (81-99); Monocytes # 0.4 10^3/uL (0.2-0.9); Monocytes % 6.6 %; Neutrophils # 4.15 10^3/uL (1.8-7.7); Neutrophils % 76.4 %; Nucleated Red Blood Cells % 0 %; Red Blood Count 3.27 10^6/uL (4.1-5.3); Red Cell Distribution Width 20.4 % (12.1-15.1); White Blood Count 5.4 10^3/uL (4.0-10.0)
[2022-10-02 15:32] LABS: Platelet Count 15 10^3/cmm (130-400)
[2022-10-02 15:33] LABS: Slide Review Slide Review Perform
[2022-10-02 15:39] LABS: Alanine Aminotransferase 18 U/L (0-33); Albumin Level 2.2 g/dL (3.5-5.2); Alkaline Phosphatase 405 U/L (35-105); Anion Gap 16.4 (5-19); Aspartate Amino Transferase 23 U/L (0-32); Blood Urea Nitrogen 9 mg/dL (8-23); Carbon Dioxide 24 mmol/L (22-29); Chloride 89 mmol/L (98-107); Glucose 192 mg/dL (65-115); Osmolality Calculated 266 mOsm/kg (285-295); Potassium 3.4 mmol/L (3.5-5.1); Sodium 126 mmol/L (136-145); Total Bilirubin 4.5 mg/dL (0.15-1.2); Total Protein 5.2 g/dL (6.6-8.7)
[2022-10-02 16:00] VITALS: BP 113/75; PULSE 94; RESP 18; TEMP 36.1; O2SAT 98
[2022-10-09 09:15] VITALS: BP 115/77; PULSE 97; RESP 18; TEMP 36.4; O2SAT 96
[2022-10-09 09:32] LABS: Basophils % 0.4 %; Hematocrit 31.1 % (37.0-47.0); Hemoglobin 9.7 g/dL (11.5-15.3); Lymphocytes # 1.1 10^3/uL (0.8-4.8); Lymphocytes % 13.5 %; Mean Corpuscular HGB Conc 31.2 g/dL (30.0-36.0); Mean Corpuscular Hemoglobin 27.1 pg (28.0-34.0); Mean Corpuscular Volume 86.9 fl (81-99); Mean Platelet Volume 9.7 fL (7.4-10.4); Monocytes # 1.5 10^3/uL (0.2-0.9); Neutrophils # 4.91 10^3/uL (1.8-7.7); Nucleated Red Blood Cells % 0 %; Platelet Count 544 10^3/cmm (130-400); Red Blood Count 3.58 10^6/uL (4.1-5.3); Red Cell Distribution Width 22.2 % (12.1-15.1); White Blood Count 7.8 10^3/uL (4.0-10.0)
[2022-10-09 09:39] VITALS: BP 118/71; PULSE 102; RESP 18; TEMP 36.1; O2SAT 98
[2022-10-09 10:09] LABS: Alanine Aminotransferase 11 U/L (0-33); Albumin Level 2.8 g/dL (3.5-5.2); Alkaline Phosphatase 347 U/L (35-105); Anion Gap 20.1 (5-19); Aspartate Amino Transferase 21 U/L (0-32); Blood Urea Nitrogen 7 mg/dL (8-23); Carbon Dioxide 23 mmol/L (22-29); Chloride 100 mmol/L (98-107); Globulin 2.7 g/dL (1.3-4.6); Glucose 191 mg/dL (65-115); Osmolality Calculated 287 mOsm/kg (285-295); Potassium 6.1 mmol/L (3.5-5.1); Sodium 137 mmol/L (136-145); Total Bilirubin 2.5 mg/dL (0.15-1.2); Total Protein 5.5 g/dL (6.6-8.7)
[2022-10-09 11:59] LABS: Cancer Antigen 19 9 160.3 U/mL (0-35)
[2022-10-09] MEDS: sodium chloride 0.9% 1,000 ML 75 ML IV (13:35)
[2022-10-09] MEDS: durvalumab 1,500 MG in sodium chloride 0.9% 250 ML 280 MG IV (14:30)
[2022-10-09] MEDS: palonosetron 0.25 mg/5 mL SDV IVP (15:41)
[2022-10-09] MEDS: famotidine 20 mg/2 mL INJ IVP (15:42)
[2022-10-09] MEDS: OLANZapine 5 mg TABLET PO (15:44)
[2022-10-09] MEDS: diphenhydrAMINE 50 mg/mL SDV 1mL 25 MG IVP (15:46)
[2022-10-09] MEDS: fosaprepitant 150 MG in sodium chloride 0.9% 150 ML 300 MG IV (15:55)
[2022-10-09] MEDS: FUROsemide 10 mg/mL SDV 2mL 20 MG IVP (17:30)
[2022-10-09 18:40] VITALS: BP 120/78; PULSE 84; RESP 18; TEMP 36.1; O2SAT 98
[2022-10-09] MEDS: sodium chloride 0.9% 250 ML 75 ML IV (18:47)
== END 2022-10-09 23:59 | disposition home or self-care (01) ==
PROVIDERS: Internal Medicine Medical Oncology; PCP Nurse Practitioner; Visit Provider Internal Medicine Medical Oncology
DX: C22.1 Intrahepatic bile duct carcinoma (principal); Z51.11 Encounter for antineoplastic chemotherapy; Z79.899 Other long term (current) drug therapy
CPT/HCPCS: 80048; 80053; 83735; 85025; 86301; 96365; 96366; 96367; 96375; 96413; 96417; 99214; J1100; J1200; J1453; J1642; J1756; J1940; J2469; J3475; J3480; J3490; J7030; J7050; J9060; J9173; J9201

== ENCOUNTER 2022-10-20 08:11 | Outpatient (CLI) | payer MEDICARE, SELFPAY ==
--- NOTE | 2022-10-20 09:30 | CT_ITS ---
WS: [id number] CT ABDOMEN PELVIS TECHNIQUE: Contrast-enhanced CT of the abdomen and pelvis with coronal and sagittal reformatted image s. CLINICAL INFORMATION: follow up COMPARISON: CT September 16, 2022 DLP: 352.[address] scans at [facility] use at least one of these dose optimization techniques: automated e xposure control; mA and/or kV adjustment per patient size (includes targeted exams where dose is matc hed to clinical indication); or iterative reconstruction. FINDINGS: Previously described dominant lesion in the RIGHT hepatic lobe demonstrates more central ne crosis and collapse today measuring 3.1 x 2.3 cm compared to 4.5 x 5.1 cm previous. Slight decrease i n size of the RIGHT lateral inferior hepatic lobe lesions. Confluent lesions at the eleazar hepatis are similar in appearance. Involvement of the pancreatic head with loss of fat plane involving the adjac ent traversing duodenum also unchanged in appearance.Stable thrombosis of the main portal vein with c avernous transformation. Stable to slightly improved peritoneal metastasis. Largest metastasis in the RIGHT pericolic gutter m easuring 2.4 x 1.9 CM. Mild peritoneal carcinomatosis is similar in appearance. Slight interval impro vement of the small lesions about the sigmoid colon in the cul-de-sac. Small esophageal hiatal hernia . Lung bases are well aerated. Normal spleen. Celiac and SMA are patent. Adrenal glands are normal. Normal renal parenchymal enhance ment. No hydronephrosis. Normal caliber abdominal aorta. Moderate spondylitic changes lumbar spine. G rade 1 anterolisthesis L4 on L5. CT/CT abdomen pelvis w con* [id number] IMPRESSION: 1. Interval improvement in the dominant RIGHT hepatic metastasis with central necrosis and more collapsed today described above. 2. Slight interval improvement in a few of the RIGHT inferior lateral hepatic metastasis. 3. Confluent metastasis in the eleazar hepatis appear stable. 4. 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 5. Stable to slightly improved peritoneal implants and peritoneal carcinomatos is. 6. Enhancing lesions in the dorsal cul-de-sac about the sigmoid colon are slig htly improved. 7. Loss of the fat planes involving the pancreatic head and traversing duodenu m similar to previous. 8. No other significant interval changes.
[2022-10-20] MEDS: iohexol 350 mg/mL 500 mL Btl (per mL) PO (10:10)
[2022-10-20] MEDS: iohexol 350 mg/mL 500 mL Btl (per mL) IV (10:11)
== END 2022-10-20 08:12 | disposition home or self-care (01) ==
PROVIDERS: PCP Nurse Practitioner; Visit Provider Internal Medicine Medical Oncology
DX: C22.1 Intrahepatic bile duct carcinoma (principal); I81 Portal vein thrombosis; C78.6 Secondary malignant neoplasm of retroperitoneum and peritoneum
CPT/HCPCS: 74177; Q9967

== ENCOUNTER 2022-10-20 10:30 | Oncology outpatient (recurring) (ONCR) | payer MEDICARE, SELFPAY ==
[2022-10-16 10:55] VITALS: BP 142/76; PULSE 84; RESP 18; TEMP 36.1; O2SAT 97
[2022-10-16 11:04] LABS: Basophils % 0.3 %; Hematocrit 31.2 % (37.0-47.0); Lymphocytes # 1.2 10^3/uL (0.8-4.8); Lymphocytes % 9.8 %; Mean Corpuscular HGB Conc 32.1 g/dL (30.0-36.0); Mean Corpuscular Hemoglobin 27.3 pg (28.0-34.0); Mean Corpuscular Volume 85.2 fl (81-99); Mean Platelet Volume 9.4 fL (7.4-10.4); Monocytes # 1.1 10^3/uL (0.2-0.9); Monocytes % 9.3 %; Neutrophils # 8.94 10^3/uL (1.8-7.7); Neutrophils % 76.7 %; Nucleated Red Blood Cells % 0 %; Platelet Count 158 10^3/cmm (130-400); Red Blood Count 3.66 10^6/uL (4.1-5.3); Red Cell Distribution Width 20.4 % (12.1-15.1); White Blood Count 11.7 10^3/uL (4.0-10.0)
[2022-10-16] MEDS: alteplase 1 mg/mL SDV 2 mL 2 MG INTRACATH (11:13)
[2022-10-16 11:38] LABS: Alanine Aminotransferase 12 U/L (0-33); Albumin Level 2.9 g/dL (3.5-5.2); Alkaline Phosphatase 250 U/L (35-105); Aspartate Amino Transferase 21 U/L (0-32); Blood Urea Nitrogen 6 mg/dL (8-23); Calcium 8.9 mg/dL (8.5-10.5); Carbon Dioxide 26 mmol/L (22-29); Chloride 95 mmol/L (98-107); Globulin 2.9 g/dL (1.3-4.6); Glucose 202 mg/dL (65-115); Osmolality Calculated 277 mOsm/kg (285-295); Sodium 132 mmol/L (136-145); Total Bilirubin 1.8 mg/dL (0.15-1.2); Total Protein 5.8 g/dL (6.6-8.7)
[2022-10-16] MEDS: diphenhydrAMINE 50 mg/mL SDV 1mL 25 MG IVP (13:23)
[2022-10-16] MEDS: sodium chloride 0.9% 250 ML 100 ML IV (13:24)
[2022-10-16] MEDS: famotidine 20 mg/2 mL INJ IVP (13:27)
[2022-10-16] MEDS: palonosetron 0.25 mg/5 mL SDV IVP (13:29)
[2022-10-16] MEDS: OLANZapine 5 mg TABLET PO (13:29)
[2022-10-16] MEDS: fosaprepitant 150 MG in sodium chloride 0.9% 150 ML 300 MG IV (13:50)
[2022-10-16] MEDS: potassium chloride 20 MEQ in sodium chloride 0.9% 500 ML 500 MEQ IV (15:26)
[2022-10-16] MEDS: FUROsemide 10 mg/mL SDV 2mL 20 MG IVP (15:33)
[2022-10-16 21:06] LABS: Thyroid Stimulating Hormone 1.47 uIU/mL (0.27-4.20)
[2022-10-20 10:16] VITALS: BMI 27.1
[2022-10-20 10:17] VITALS: BP 117/72; PULSE 89; RESP 18; TEMP 35.7; O2SAT 100
== END 2022-10-27 23:59 | disposition home or self-care (01) ==
PROVIDERS: PCP Nurse Practitioner; Visit Provider Internal Medicine Medical Oncology
DX: C22.1 Intrahepatic bile duct carcinoma (principal)
CPT/HCPCS: 36593; 74177; 80053; 84443; 85025; 86301; 96365; 96366; 96367; 96368; 96375; 96413; 96415; J1100; J1200; J1453; J1642; J1940; J2469; J2997; J3475; J3480; J3490; J7030; J7040; J7050; J9060; J9201; Q9967

== ENCOUNTER 2022-10-30 07:57 | Oncology outpatient (recurring) (ONCR) | payer MEDICARE, SELFPAY ==
[2022-10-30 08:20] VITALS: BP 112/78; PULSE 68; RESP 18; TEMP 36.6; O2SAT 98
[2022-10-30 08:30] LABS: Basophils % 0.2 %; Hematocrit 29.7 % (37.0-47.0); Hemoglobin 9.6 g/dL (11.5-15.3); Lymphocytes % 11.9 %; Mean Corpuscular HGB Conc 32.3 g/dL (30.0-36.0); Mean Corpuscular Hemoglobin 28.6 pg (28.0-34.0); Mean Corpuscular Volume 88.4 fl (81-99); Mean Platelet Volume 9.7 fL (7.4-10.4); Monocytes # 1.1 10^3/uL (0.2-0.9); Monocytes % 12.9 %; Neutrophils # 6.35 10^3/uL (1.8-7.7); Neutrophils % 73.8 %; Nucleated Red Blood Cells % 0 %; Platelet Count 422 10^3/cmm (130-400); Red Blood Count 3.36 10^6/uL (4.1-5.3); White Blood Count 8.6 10^3/uL (4.0-10.0)
[2022-10-30 09:03] LABS: Alanine Aminotransferase 11 U/L (0-33); Albumin Level 2.8 g/dL (3.5-5.2); Alkaline Phosphatase 201 U/L (35-105); Anion Gap 18.2 (5-19); Aspartate Amino Transferase 19 U/L (0-32); Blood Urea Nitrogen 9 mg/dL (8-23); Cancer Antigen 19 9 99.85 U/mL (0-35); Carbon Dioxide 23 mmol/L (22-29); Chloride 93 mmol/L (98-107); Glucose 195 mg/dL (65-115); Osmolality Calculated 274 mOsm/kg (285-295); Potassium 4.2 mmol/L (3.5-5.1); Sodium 130 mmol/L (136-145); Total Bilirubin 1.4 mg/dL (0.15-1.2); Total Protein 5.8 g/dL (6.6-8.7)
[2022-10-30] MEDS: sodium chloride 0.9% 250 ML 35 ML IV (11:10)
[2022-10-30] MEDS: diphenhydrAMINE 50 mg/mL SDV 1mL 25 MG IVP (11:47)
[2022-10-30] MEDS: famotidine 20 mg/2 mL INJ IVP (11:50)
[2022-10-30] MEDS: OLANZapine 5 mg TABLET PO (11:53)
[2022-10-30] MEDS: palonosetron 0.25 mg/5 mL SDV IVP (11:54)
[2022-10-30] MEDS: fosaprepitant 150 MG in sodium chloride 0.9% 150 ML 300 MG IV (11:58)
[2022-10-30] MEDS: durvalumab 1,500 MG in sodium chloride 0.9% 250 ML 280 MG IV (12:29)
[2022-10-30] MEDS: potassium chloride 20 MEQ in sodium chloride 0.9% 500 ML 500 MEQ IV (15:45)
[2022-10-30] MEDS: FUROsemide 10 mg/mL SDV 2mL 20 MG IVP (15:45)
[2022-10-30 16:25] VITALS: BP 121/78; PULSE 68; RESP 18; TEMP 36.6; O2SAT 98
== END 2022-10-30 23:59 | disposition home or self-care (01) ==
PROVIDERS: PCP Nurse Practitioner; Visit Provider Internal Medicine Medical Oncology
DX: C22.1 Intrahepatic bile duct carcinoma (principal); Z51.11 Encounter for antineoplastic chemotherapy; R17 Unspecified jaundice; E80.7 Disorder of bilirubin metabolism, unspecified; R74.01 Elevation of levels of liver transaminase levels; R97.8 Other abnormal tumor markers; D50.9 Iron deficiency anemia, unspecified; Z79.899 Other long term (current) drug therapy
CPT/HCPCS: 80053; 85025; 86301; 96365; 96366; 96367; 96375; 96413; 96415; 99214; J1100; J1200; J1453; J1642; J1940; J2469; J3475; J3480; J3490; J7030; J7040; J7050; J9060; J9173; J9201

== ENCOUNTER 2022-11-20 08:00 | Oncology outpatient (recurring) (ONCR) | payer MEDICARE, SELFPAY ==
[2022-11-06 07:45] VITALS: BP 113/74; PULSE 94; RESP 18; TEMP 36.2; O2SAT 96
[2022-11-06 07:47] VITALS: BMI 26.9
[2022-11-06 08:01] LABS: Basophils % 0.4 %; Eosinophils % 0.1 %; Hematocrit 27.4 % (37.0-47.0); Hemoglobin 8.8 g/dL (11.5-15.3); Lymphocytes # 0.9 10^3/uL (0.8-4.8); Lymphocytes % 11.2 %; Mean Corpuscular HGB Conc 32.1 g/dL (30.0-36.0); Mean Corpuscular Hemoglobin 28.7 pg (28.0-34.0); Mean Corpuscular Volume 89.3 fl (81-99); Mean Platelet Volume 9.4 fL (7.4-10.4); Monocytes # 1.2 10^3/uL (0.2-0.9); Monocytes % 14.6 %; Neutrophils # 6.01 10^3/uL (1.8-7.7); Neutrophils % 71.6 %; Nucleated Red Blood Cells % 0 %; Platelet Count 153 10^3/cmm (130-400); Red Blood Count 3.07 10^6/uL (4.1-5.3); Red Cell Distribution Width 18.8 % (12.1-15.1); White Blood Count 8.4 10^3/uL (4.0-10.0)
[2022-11-06 08:52] LABS: Alanine Aminotransferase 12 U/L (0-33); Albumin Level 2.9 g/dL (3.5-5.2); Alkaline Phosphatase 172 U/L (35-105); Anion Gap 16.6 (5-19); Aspartate Amino Transferase 22 U/L (0-32); Blood Urea Nitrogen 8 mg/dL (8-23); Carbon Dioxide 25 mmol/L (22-29); Chloride 98 mmol/L (98-107); Globulin 2.9 g/dL (1.3-4.6); Glucose 140 mg/dL (65-115); Iron 42 ug/dL (37-145); Osmolality Calculated 281 mOsm/kg (285-295); Percent Saturation 30.2 % (20-50); Potassium 4.6 mmol/L (3.5-5.1); Sodium 135 mmol/L (136-145); Total Iron Binding Capacity 139 mcg/dl; Total Protein 5.8 g/dL (6.6-8.7); Unsaturated Iron Binding 97 ug/dL (112-347)
[2022-11-06] MEDS: OLANZapine 5 mg TABLET PO (10:36)
[2022-11-06] MEDS: sodium chloride 0.9% 250 ML 75 ML IV (10:37)
[2022-11-06] MEDS: diphenhydrAMINE 50 mg/mL SDV 1mL 25 MG IVP (10:41)
[2022-11-06] MEDS: famotidine 20 mg/2 mL INJ IVP (10:45)
[2022-11-06] MEDS: palonosetron 0.25 mg/5 mL SDV IVP (10:48)
[2022-11-06] MEDS: fosaprepitant 150 MG in sodium chloride 0.9% 150 ML 300 MG IV (11:13)
[2022-11-06] MEDS: FUROsemide 10 mg/mL SDV 2mL 20 MG IVP (14:01)
[2022-11-06] MEDS: potassium chloride 20 MEQ in sodium chloride 0.9% 500 ML 500 MEQ IV (14:04)
[2022-11-06 15:40] VITALS: BP 121/78; PULSE 91; RESP 17; TEMP 36.2; O2SAT 96
[2022-11-13 13:31] VITALS: BP 119/80; PULSE 86; RESP 18; O2SAT 99; BMI 27.2
[2022-11-20 07:57] VITALS: BP 126/77; PULSE 91; RESP 18; TEMP 36.1; O2SAT 97; BMI 27.4
[2022-11-20 08:09] LABS: Basophils % 0.2 %; Eosinophils % 0.2 %; Hematocrit 27.4 % (36-47); Lymphocytes # 0.9 10^3/uL (0.8-4.8); Lymphocytes % 15.6 %; Mean Corpuscular HGB Conc 30.7 g/dL (30-55); Mean Corpuscular Hemoglobin 28.6 pg (27-33); Mean Corpuscular Volume 93.2 fl (85-98); Mean Platelet Volume 10.4 fL (7.4-10.4); Monocytes # 0.7 10^3/uL (0.2-0.9); Monocytes % 12.6 %; Neutrophils # 4.16 10^3/uL (1.8-7.7); Neutrophils % 71.1 %; Nucleated Red Blood Cells % 0 %; Platelet Count 263 10^3/cmm (157-399); Red Blood Count 2.94 10^6/uL (3.85-5.65); Red Cell Distribution Width 20.7 % (12.1-15.1); White Blood Count 5.85 10^3/uL (3.29-11.43)
[2022-11-20 08:43] LABS: Alanine Aminotransferase 9 U/L (0-33); Albumin Level 3.1 g/dL (3.5-5.2); Alkaline Phosphatase 160 U/L (35-105); Anion Gap 15.7 (5-19); Aspartate Amino Transferase 21 U/L (0-32); Blood Urea Nitrogen 10 mg/dL (8-23); Calcium 8.2 mg/dL (8.5-10.5); Cancer Antigen 19 9 97.65 U/mL (0-35); Carbon Dioxide 25 mmol/L (22-29); Chloride 97 mmol/L (98-107); Globulin 2.7 g/dL (1.3-4.6); Glucose 217 mg/dL (65-115); Osmolality Calculated 284 mOsm/kg (285-295); Potassium 3.7 mmol/L (3.5-5.1); Sodium 134 mmol/L (136-145); Total Bilirubin 0.9 mg/dL (0.15-1.2); Total Protein 5.8 g/dL (6.6-8.7)
[2022-11-20] MEDS: palonosetron 0.25 mg/5 mL SDV IVP (11:41)
[2022-11-20] MEDS: sodium chloride 0.9% 250 ML 75 ML IV (11:42)
[2022-11-20] MEDS: OLANZapine 5 mg TABLET PO (11:43)
[2022-11-20] MEDS: diphenhydrAMINE 50 mg/mL SDV 1mL 25 MG IVP (11:44)
[2022-11-20] MEDS: famotidine 20 mg/2 mL INJ IVP (11:45)
[2022-11-20] MEDS: fosaprepitant 150 MG in sodium chloride 0.9% 150 ML 300 MG IV (12:17)
[2022-11-20] MEDS: durvalumab 1,500 MG in sodium chloride 0.9% 250 ML 280 MG IV (13:08)
[2022-11-20] MEDS: FUROsemide 10 mg/mL SDV 2mL 20 MG IVP (16:18)
[2022-11-20] MEDS: potassium chloride 20 MEQ in sodium chloride 0.9% 500 ML 500 MEQ IV (16:19)
[2022-11-20 17:07] VITALS: BP 141/89; PULSE 81; RESP 18; TEMP 36.6; O2SAT 98
== END 2022-11-20 23:59 | disposition home or self-care (01) ==
PROVIDERS: PCP Nurse Practitioner; Visit Provider Internal Medicine Medical Oncology
DX: C22.1 Intrahepatic bile duct carcinoma (principal); Z51.11 Encounter for antineoplastic chemotherapy; C77.2 Secondary and unspecified malignant neoplasm of intra-abdominal lymph nodes; R17 Unspecified jaundice; E80.7 Disorder of bilirubin metabolism, unspecified; R97.8 Other abnormal tumor markers; D50.9 Iron deficiency anemia, unspecified; Z79.899 Other long term (current) drug therapy; Z45.2 Encounter for adjustment and management of vascular access device
CPT/HCPCS: 80053; 83540; 83550; 85025; 86301; 96367; 96375; 96413; 96417; 99214; J1100; J1200; J1453; J1642; J1940; J2469; J3475; J3480; J3490; J7030; J7040; J7050; J9060; J9173; J9201

== ENCOUNTER 2022-11-27 07:55 | Oncology outpatient (recurring) (ONCR) | payer MEDICARE, SELFPAY ==
[2022-11-27 08:15] VITALS: BP 120/63; PULSE 90; RESP 16; TEMP 36.3; O2SAT 96
[2022-11-27 08:30] LABS: Basophils % 0.2 %; Hematocrit 25.3 % (36-47); Lymphocytes # 0.9 10^3/uL (0.8-4.8); Lymphocytes % 21.6 %; Mean Corpuscular Hemoglobin 29.8 pg (27-33); Mean Platelet Volume 11.1 fL (7.4-10.4); Monocytes # 0.6 10^3/uL (0.2-0.9); Monocytes % 13.3 %; Neutrophils % 63.2 %; Nucleated Red Blood Cells % 0 %; Platelet Count 101 10^3/cmm (157-399); Red Blood Count 2.72 10^6/uL (3.85-5.65); Red Cell Distribution Width 18.6 % (12.1-15.1); White Blood Count 4.12 10^3/uL (3.29-11.43)
[2022-11-27 08:53] LABS: Alanine Aminotransferase 12 U/L (0-33); Alkaline Phosphatase 156 U/L (35-105); Anion Gap 16.2 (5-19); Aspartate Amino Transferase 22 U/L (0-32); Blood Urea Nitrogen 9 mg/dL (8-23); Calcium 8.5 mg/dL (8.5-10.5); Carbon Dioxide 25 mmol/L (22-29); Chloride 98 mmol/L (98-107); Globulin 2.7 g/dL (1.3-4.6); Glucose 147 mg/dL (65-115); Osmolality Calculated 281 mOsm/kg (285-295); Potassium 4.2 mmol/L (3.5-5.1); Sodium 135 mmol/L (136-145); Total Bilirubin 0.7 mg/dL (0.15-1.2); Total Protein 5.7 g/dL (6.6-8.7)
--- NOTE | 2022-11-27 08:53 | PC.NURSE ---
PICC Line Dressing Change PICC line dressing changed on 11/27/22 at 0815 using sterile technique. No redness or irritation noted at insertion site. Patient tolerated well.
[2022-11-27] MEDS: sodium chloride 0.9% 250 ML 75 ML IV (10:56)
[2022-11-27] MEDS: OLANZapine 5 mg TABLET PO (10:58)
[2022-11-27] MEDS: diphenhydrAMINE 50 mg/mL SDV 1mL 25 MG IVP (10:59)
[2022-11-27] MEDS: famotidine 20 mg/2 mL INJ IVP (11:04)
[2022-11-27] MEDS: palonosetron 0.25 mg/5 mL SDV IVP (11:07)
[2022-11-27] MEDS: fosaprepitant 150 MG in sodium chloride 0.9% 150 ML 300 MG IV (11:11)
[2022-11-27] MEDS: FUROsemide 10 mg/mL SDV 2mL 20 MG IVP (14:34)
[2022-11-27] MEDS: potassium chloride 20 MEQ in sodium chloride 0.9% 500 ML 500 MEQ IV (14:45)
[2022-11-27 15:55] VITALS: BP 140/69; PULSE 86; RESP 18; TEMP 35.7; O2SAT 96
== END 2022-11-27 23:59 | disposition home or self-care (01) ==
LOC: ONCMED 07:55
PROVIDERS: Nurse Practitioner Family; PCP Nurse Practitioner; Visit Provider Internal Medicine Medical Oncology
DX: C22.1 Intrahepatic bile duct carcinoma (principal); Z51.11 Encounter for antineoplastic chemotherapy; D50.9 Iron deficiency anemia, unspecified; Z79.899 Other long term (current) drug therapy
CPT/HCPCS: 80053; 85025; 96365; 96367; 96368; 96374; 96375; 96413; 96417; J1100; J1200; J1453; J1642; J1940; J2469; J3475; J3480; J3490; J7030; J7040; J7050; J9060; J9201

== ENCOUNTER 2022-12-11 08:00 | Oncology outpatient (recurring) (ONCR) | payer MEDICARE, SELFPAY ==
[2022-12-04 13:06] VITALS: BMI 28.3
[2022-12-04 13:07] VITALS: BP 116/74; PULSE 83; RESP 18; TEMP 36.3; O2SAT 96
[2022-12-04 13:26] LABS: Hematocrit 22.2 % (36-47); Lymphocytes # 0.8 10^3/uL (0.8-4.8); Lymphocytes % 26.4 %; Mean Corpuscular Hemoglobin 30.3 pg (27-33); Mean Corpuscular Volume 94.9 fl (85-98); Mean Platelet Volume 12.5 fL (7.4-10.4); Monocytes # 0.4 10^3/uL (0.2-0.9); Monocytes % 12.2 %; Neutrophils # 1.78 10^3/uL (1.8-7.7); Neutrophils % 60.4 %; Nucleated Red Blood Cells % 0 %; Red Blood Count 2.34 10^6/uL (3.85-5.65); Red Cell Distribution Width 17.9 % (12.1-15.1); White Blood Count 2.95 10^3/uL (3.29-11.43)
[2022-12-04 13:52] LABS: Alanine Aminotransferase 11 U/L (0-33); Alkaline Phosphatase 136 U/L (35-105); Anion Gap 13.9 (5-19); Aspartate Amino Transferase 20 U/L (0-32); Blood Urea Nitrogen 7 mg/dL (8-23); Calcium 7.7 mg/dL (8.5-10.5); Cancer Antigen 19 9 80.86 U/mL (0-35); Carbon Dioxide 25 mmol/L (22-29); Chloride 97 mmol/L (98-107); Globulin 2.2 g/dL (1.3-4.6); Glucose 172 mg/dL (65-115); Osmolality Calculated 276 mOsm/kg (285-295); Potassium 3.9 mmol/L (3.5-5.1); Sodium 132 mmol/L (136-145); Total Bilirubin 0.6 mg/dL (0.15-1.2); Total Protein 5.2 g/dL (6.6-8.7)
[2022-12-04 13:54] LABS: Creatinine Clr Calc Pharmacy 56.6676
[2022-12-04 14:09] LABS: Slide Review Slide Review Perform
[2022-12-04 14:10] LABS: Platelet Count 27 10^3/cmm (157-399)
--- NOTE | 2022-12-04 16:14 | PC.NURSE ---
patient lab work reviewed with Dr Nicolas with the call back of the results called with the patient denies bleeding or feeling bad. I did instruct her to go to ER if she has any bleeding or bruising that is something new. She denies temperature and feeing good so far. She voices understanding.kisha
[2022-12-11 08:10] VITALS: BP 115/68; PULSE 105; RESP 16; TEMP 36.2; O2SAT 96
[2022-12-11 08:24] LABS: Basophils % 0.2 %; Hematocrit 25.5 % (36-47); Lymphocytes # 0.7 10^3/uL (0.8-4.8); Lymphocytes % 17.7 %; Mean Corpuscular HGB Conc 31.8 g/dL (30-55); Mean Corpuscular Volume 97.7 fl (85-98); Mean Platelet Volume 10.5 fL (7.4-10.4); Monocytes # 0.8 10^3/uL (0.2-0.9); Monocytes % 20.4 %; Neutrophils # 2.48 10^3/uL (1.8-7.7); Neutrophils % 61.2 %; Nucleated Red Blood Cells % 0 %; Platelet Count 324 10^3/cmm (157-399); Red Blood Count 2.61 10^6/uL (3.85-5.65); Red Cell Distribution Width 18.6 % (12.1-15.1); White Blood Count 4.06 10^3/uL (3.29-11.43)
[2022-12-11 08:31] LABS: Alanine Aminotransferase 8 U/L (0-33); Alkaline Phosphatase 147 U/L (35-105); Anion Gap 15.4 (5-19); Aspartate Amino Transferase 16 U/L (0-32); Blood Urea Nitrogen 12 mg/dL (8-23); Calcium 8.2 mg/dL (8.5-10.5); Carbon Dioxide 24 mmol/L (22-29); Chloride 98 mmol/L (98-107); Globulin 2.4 g/dL (1.3-4.6); Glucose 217 mg/dL (65-115); Osmolality Calculated 282 mOsm/kg (285-295); Potassium 4.4 mmol/L (3.5-5.1); Sodium 133 mmol/L (136-145); Total Bilirubin 0.6 mg/dL (0.15-1.2); Total Protein 5.4 g/dL (6.6-8.7)
[2022-12-11 09:23] LABS: Iron 48 ug/dL (37-145); Percent Saturation 36.9 % (20-50); Total Iron Binding Capacity 130 mcg/dl; Unsaturated Iron Binding 82 ug/dL (112-347)
[2022-12-11] MEDS: OLANZapine 5 mg TABLET PO (10:15)
[2022-12-11] MEDS: palonosetron 0.25 mg/5 mL SDV IVP (11:14)
[2022-12-11] MEDS: sodium chloride 0.9% 250 ML 100 ML IV (11:14)
[2022-12-11] MEDS: famotidine 20 mg/2 mL INJ IVP (11:15)
[2022-12-11] MEDS: diphenhydrAMINE 50 mg/mL SDV 1mL 25 MG IVP (11:16)
[2022-12-11] MEDS: fosaprepitant 150 MG in sodium chloride 0.9% 150 ML 300 MG IV (11:20)
[2022-12-11] MEDS: durvalumab 1,500 MG in sodium chloride 0.9% 250 ML 280 MG IV (12:28)
[2022-12-11] MEDS: FUROsemide 10 mg/mL SDV 2mL 20 MG IVP (16:02)
[2022-12-11] MEDS: potassium chloride 20 MEQ in sodium chloride 0.9% 500 ML 500 MEQ IV (16:06)
--- NOTE | 2022-12-11 16:08 | PC.NURSE ---
PICC Line Dressing Change PICC line dressing was changed at 0810 on 12/11/22 using sterile technique. No redness or irritation at insertion site. Pt tolerated well.
[2022-12-11 17:13] VITALS: BP 183/83; PULSE 92; RESP 17; TEMP 36.2; O2SAT 99
== END 2022-12-11 23:59 | disposition home or self-care (01) ==
PROVIDERS: Nurse Practitioner Family; PCP Nurse Practitioner; Visit Provider Internal Medicine Medical Oncology
DX: C22.1 Intrahepatic bile duct carcinoma (principal); D64.81 Anemia due to antineoplastic chemotherapy; T45.1X5A Adverse effect of antineoplastic and immunosuppressive drugs, initial encounter
CPT/HCPCS: 36592; 80053; 82668; 83540; 83550; 85025; 86301; 96365; 96366; 96367; 96375; 96413; 96417; 99214; J1100; J1200; J1453; J1642; J1940; J2469; J3475; J3480; J3490; J7030; J7040; J7050; J9060; J9173; J9201

== ENCOUNTER 2022-12-25 08:02 | Oncology outpatient (recurring) (ONCR) | payer MEDICARE, SELFPAY ==
[2022-12-18 08:15] VITALS: BP 138/68; PULSE 92; RESP 18; TEMP 36.5; O2SAT 94; BMI 29.2
[2022-12-18 08:44] LABS: Basophils % 0.3 %; Eosinophils % 0.3 %; Hematocrit 23.4 % (36-47); Lymphocytes # 0.7 10^3/uL (0.8-4.8); Lymphocytes % 21.6 %; Mean Corpuscular HGB Conc 32.5 g/dL (30-55); Mean Corpuscular Hemoglobin 31.1 pg (27-33); Mean Corpuscular Volume 95.9 fl (85-98); Mean Platelet Volume 11.1 fL (7.4-10.4); Monocytes # 0.7 10^3/uL (0.2-0.9); Monocytes % 20.7 %; Neutrophils # 1.78 10^3/uL (1.8-7.7); Neutrophils % 53.5 %; Nucleated Red Blood Cells % 0 %; Platelet Count 79 10^3/cmm (157-399); Red Blood Count 2.44 10^6/uL (3.85-5.65); Red Cell Distribution Width 16.8 % (12.1-15.1); White Blood Count 3.33 10^3/uL (3.29-11.43)
[2022-12-18 08:58] LABS: Alanine Aminotransferase 11 U/L (0-33); Alkaline Phosphatase 142 U/L (35-105); Anion Gap 15.8 (5-19); Aspartate Amino Transferase 20 U/L (0-32); Blood Urea Nitrogen 8 mg/dL (8-23); Calcium 8.2 mg/dL (8.5-10.5); Carbon Dioxide 26 mmol/L (22-29); Chloride 96 mmol/L (98-107); Globulin 2.4 g/dL (1.3-4.6); Glucose 189 mg/dL (65-115); Osmolality Calculated 281 mOsm/kg (285-295); Potassium 3.8 mmol/L (3.5-5.1); Sodium 134 mmol/L (136-145); Total Bilirubin 0.5 mg/dL (0.15-1.2); Total Protein 5.4 g/dL (6.6-8.7)
[2022-12-18 11:00] VITALS: BP 105/67; PULSE 77; RESP 18; TEMP 36.3; O2SAT 98
[2022-12-25 09:08] LABS: Basophils % 0.4 %; Hematocrit 25.6 % (36-47); Lymphocytes # 0.8 10^3/uL (0.8-4.8); Lymphocytes % 15.6 %; Mean Corpuscular HGB Conc 31.3 g/dL (30-55); Mean Corpuscular Hemoglobin 30.3 pg (27-33); Mean Platelet Volume 10.8 fL (7.4-10.4); Monocytes # 0.8 10^3/uL (0.2-0.9); Neutrophils # 3.28 10^3/uL (1.8-7.7); Neutrophils % 66.2 %; Nucleated Red Blood Cells % 0 %; Platelet Count 177 10^3/cmm (157-399); Red Blood Count 2.64 10^6/uL (3.85-5.65); Red Cell Distribution Width 16.5 % (12.1-15.1); White Blood Count 4.95 10^3/uL (3.29-11.43)
[2022-12-25 09:13] VITALS: BP 126/77; PULSE 78; RESP 18; TEMP 36.9; O2SAT 98
[2022-12-25 09:40] LABS: Alanine Aminotransferase 6 U/L (0-33); Alkaline Phosphatase 136 U/L (35-105); Anion Gap 15.4 (5-19); Aspartate Amino Transferase 21 U/L (0-32); Blood Urea Nitrogen 11 mg/dL (8-23); Calcium 8.3 mg/dL (8.5-10.5); Cancer Antigen 19 9 83.55 U/mL (0-35); Carbon Dioxide 27 mmol/L (22-29); Chloride 97 mmol/L (98-107); Globulin 2.4 g/dL (1.3-4.6); Glucose 215 mg/dL (65-115); Osmolality Calculated 286 mOsm/kg (285-295); Potassium 4.4 mmol/L (3.5-5.1); Sodium 135 mmol/L (136-145); Total Bilirubin 0.6 mg/dL (0.15-1.2); Total Protein 5.4 g/dL (6.6-8.7)
[2022-12-25] MEDS: sodium chloride 0.9% 250 ML 75 ML IV (11:10)
[2022-12-25] MEDS: diphenhydrAMINE 50 mg/mL SDV 1mL 25 MG IVP (11:11)
[2022-12-25] MEDS: famotidine 20 mg/2 mL INJ IVP (11:14)
[2022-12-25] MEDS: OLANZapine 5 mg TABLET PO (11:18)
[2022-12-25] MEDS: palonosetron 0.25 mg/5 mL SDV IVP (11:20)
[2022-12-25] MEDS: fosaprepitant 150 MG in sodium chloride 0.9% 150 ML 300 MG IV (12:02)
[2022-12-25] MEDS: FUROsemide 10 mg/mL SDV 2mL 20 MG IVP (14:57)
[2022-12-25] MEDS: potassium chloride 20 MEQ in sodium chloride 0.9% 500 ML 500 MEQ IV (14:58)
[2022-12-25 15:55] VITALS: BP 124/68; PULSE 89; RESP 18; TEMP 36.6; O2SAT 98
== END 2022-12-27 23:59 | disposition home or self-care (01) ==
PROVIDERS: PCP Nurse Practitioner; Visit Provider Internal Medicine Medical Oncology
DX: C22.1 Intrahepatic bile duct carcinoma (principal); Z51.11 Encounter for antineoplastic chemotherapy
CPT/HCPCS: 80053; 85025; 86301; 96365; 96366; 96367; 96375; 96413; 96417; J1100; J1200; J1453; J1642; J1940; J2469; J3475; J3480; J3490; J7030; J7040; J7050; J9060; J9201

== ENCOUNTER 2023-01-08 08:00 | Oncology outpatient (recurring) (ONCR) | payer MEDICARE, SELFPAY ==
[2023-01-01 07:45] VITALS: BP 114/73; PULSE 86; RESP 16; TEMP 36.2; O2SAT 95
[2023-01-01 07:52] LABS: Basophils % 0.2 %; Eosinophils % 0.2 %; Hematocrit 24.8 % (36-47); Lymphocytes # 0.9 10^3/uL (0.8-4.8); Lymphocytes % 21.4 %; Mean Corpuscular HGB Conc 31.9 g/dL (30-55); Mean Corpuscular Volume 94.3 fl (85-98); Monocytes # 0.7 10^3/uL (0.2-0.9); Monocytes % 15.4 %; Neutrophils # 2.66 10^3/uL (1.8-7.7); Neutrophils % 61.4 %; Nucleated Red Blood Cells % 0 %; Platelet Count 126 10^3/cmm (157-399); Red Blood Count 2.63 10^6/uL (3.85-5.65); White Blood Count 4.34 10^3/uL (3.29-11.43)
[2023-01-01 08:09] LABS: Alanine Aminotransferase 13 U/L (0-33); Albumin Level 3.3 g/dL (3.5-5.2); Alkaline Phosphatase 144 U/L (35-105); Anion Gap 13.5 (5-19); Aspartate Amino Transferase 26 U/L (0-32); Blood Urea Nitrogen 8 mg/dL (8-23); Calcium 8.7 mg/dL (8.5-10.5); Carbon Dioxide 26 mmol/L (22-29); Chloride 99 mmol/L (98-107); Globulin 2.6 g/dL (1.3-4.6); Glucose 138 mg/dL (65-115); Osmolality Calculated 279 mOsm/kg (285-295); Potassium 4.5 mmol/L (3.5-5.1); Sodium 134 mmol/L (136-145); Total Bilirubin 0.5 mg/dL (0.15-1.2); Total Protein 5.9 g/dL (6.6-8.7)
[2023-01-01] MEDS: epoetin alfa 40,000 Unit/mL INJ (non-esrd, onc only) 40000 UNIT SUBCUT (09:13)
[2023-01-08 08:05] VITALS: BP 117/69; PULSE 80; RESP 18; TEMP 36.5; O2SAT 98
[2023-01-08 08:39] LABS: Basophils % 0.2 %; Hematocrit 26.6 % (36-47); Lymphocytes # 0.7 10^3/uL (0.8-4.8); Lymphocytes % 13.7 %; Mean Corpuscular HGB Conc 31.6 g/dL (30-55); Mean Corpuscular Volume 98.2 fl (85-98); Mean Platelet Volume 11.5 fL (7.4-10.4); Monocytes # 0.8 10^3/uL (0.2-0.9); Monocytes % 14.8 %; Neutrophils # 3.77 10^3/uL (1.8-7.7); Neutrophils % 70.7 %; Nucleated Red Blood Cells % 0 %; Platelet Count 160 10^3/cmm (157-399); Red Blood Count 2.71 10^6/uL (3.85-5.65); Red Cell Distribution Width 18.3 % (12.1-15.1); White Blood Count 5.33 10^3/uL (3.29-11.43)
[2023-01-08 09:02] LABS: Alanine Aminotransferase 11 U/L (0-33); Albumin Level 3.3 g/dL (3.5-5.2); Alkaline Phosphatase 177 U/L (35-105); Anion Gap 14.1 (5-19); Aspartate Amino Transferase 20 U/L (0-32); Blood Urea Nitrogen 18 mg/dL (8-23); Calcium 8.9 mg/dL (8.5-10.5); Cancer Antigen 19 9 99.07 U/mL (0-35); Carbon Dioxide 27 mmol/L (22-29); Chloride 98 mmol/L (98-107); Globulin 2.6 g/dL (1.3-4.6); Glucose 180 mg/dL (65-115); Osmolality Calculated 286 mOsm/kg (285-295); Potassium 4.1 mmol/L (3.5-5.1); Sodium 135 mmol/L (136-145); Total Bilirubin 0.7 mg/dL (0.15-1.2); Total Protein 5.9 g/dL (6.6-8.7)
[2023-01-08] MEDS: famotidine 20 mg/2 mL INJ IVP (10:21)
[2023-01-08] MEDS: OLANZapine 5 mg TABLET PO (10:25)
[2023-01-08] MEDS: diphenhydrAMINE 50 mg/mL SDV 1mL 25 MG IVP (10:26)
[2023-01-08] MEDS: sodium chloride 0.9% 250 ML 75 ML IV (10:26)
[2023-01-08] MEDS: epoetin alfa 40,000 Unit/mL INJ (non-esrd, onc only) 40000 UNIT SUBCUT (10:27)
[2023-01-08] MEDS: palonosetron 0.25 mg/5 mL SDV IVP (10:28)
[2023-01-08] MEDS: fosaprepitant 150 MG in sodium chloride 0.9% 150 ML 300 MG IV (11:09)
[2023-01-08] MEDS: durvalumab 1,500 MG in sodium chloride 0.9% 250 ML 280 MG IV (11:57)
[2023-01-08] MEDS: FUROsemide 10 mg/mL SDV 2mL 20 MG IVP (15:37)
[2023-01-08] MEDS: potassium chloride 20 MEQ in sodium chloride 0.9% 500 ML 500 MEQ IV (15:40)
[2023-01-08 17:15] VITALS: BP 124/78; PULSE 74; RESP 18; TEMP 36.6; O2SAT 98
== END 2023-01-08 23:59 | disposition home or self-care (01) ==
PROVIDERS: PCP Nurse Practitioner; Visit Provider Internal Medicine Medical Oncology
DX: C22.1 Intrahepatic bile duct carcinoma (principal); D50.9 Iron deficiency anemia, unspecified; R53.83 Other fatigue; I10 Essential (primary) hypertension; Z79.899 Other long term (current) drug therapy; Z51.11 Encounter for antineoplastic chemotherapy
CPT/HCPCS: 80053; 85025; 86301; 96365; 96366; 96367; 96375; 96413; 96417; 99214; J0885; J1100; J1200; J1453; J1642; J1940; J2469; J3475; J3480; J3490; J7030; J7040; J7050; J9060; J9173; J9201

== ENCOUNTER 2023-01-26 09:00 | Oncology outpatient (recurring) (ONCR) | payer MEDICARE, SELFPAY ==
[2023-01-15 08:00] VITALS: BMI 28.0
[2023-01-15 08:01] VITALS: BP 129/82; PULSE 80; RESP 18; TEMP 36.2; O2SAT 98
[2023-01-15 08:09] LABS: Basophils % 0.2 %; Eosinophils % 0.2 %; Hematocrit 27.1 % (36-47); Lymphocytes % 25.6 %; Mean Corpuscular HGB Conc 31.7 g/dL (30-55); Mean Corpuscular Hemoglobin 30.7 pg (27-33); Mean Corpuscular Volume 96.8 fl (85-98); Mean Platelet Volume 10.7 fL (7.4-10.4); Monocytes # 0.5 10^3/uL (0.2-0.9); Monocytes % 11.7 %; Neutrophils # 2.45 10^3/uL (1.8-7.7); Neutrophils % 61.1 %; Nucleated Red Blood Cells % 0 %; Platelet Count 116 10^3/cmm (157-399); Red Cell Distribution Width 17.2 % (12.1-15.1); White Blood Count 4.02 10^3/uL (3.29-11.43)
[2023-01-15] MEDS: sodium chloride 0.9% 250 ML 75 ML IV (10:00)
[2023-01-15] MEDS: diphenhydrAMINE 50 mg/mL SDV 1mL 25 MG IVP (10:02)
[2023-01-15] MEDS: famotidine 20 mg/2 mL INJ IVP (10:03)
[2023-01-15] MEDS: OLANZapine 5 mg TABLET PO (10:03)
[2023-01-15] MEDS: palonosetron 0.25 mg/5 mL SDV IVP (10:06)
[2023-01-15] MEDS: fosaprepitant 150 MG in sodium chloride 0.9% 150 ML 300 MG IV (10:47)
[2023-01-15] MEDS: potassium chloride 20 MEQ in sodium chloride 0.9% 500 ML 500 MEQ IV (13:57)
[2023-01-15] MEDS: FUROsemide 10 mg/mL SDV 2mL 20 MG IVP (13:57)
[2023-01-15] MEDS: epoetin alfa 40,000 Unit/mL INJ (non-esrd, onc only) 40000 UNIT SUBCUT (14:29)
[2023-01-15 15:30] VITALS: BP 124/78; PULSE 74; RESP 18; TEMP 36.6; O2SAT 98
[2023-01-22 09:10] VITALS: BP 129/78; PULSE 84; RESP 18; TEMP 36.4; O2SAT 97
[2023-01-22 09:16] LABS: Basophils % 0.3 %; Hematocrit 26.6 % (36-47); Lymphocytes # 0.7 10^3/uL (0.8-4.8); Lymphocytes % 21.1 %; Mean Corpuscular Volume 97.1 fl (85-98); Monocytes # 0.3 10^3/uL (0.2-0.9); Monocytes % 9.4 %; Neutrophils # 2.34 10^3/uL (1.8-7.7); Neutrophils % 68.6 %; Nucleated Red Blood Cells % 0 %; Red Blood Count 2.74 10^6/uL (3.85-5.65); Red Cell Distribution Width 17.4 % (12.1-15.1); White Blood Count 3.41 10^3/uL (3.29-11.43)
[2023-01-22 09:33] LABS: Alanine Aminotransferase 15 U/L (0-33); Albumin Level 3.4 g/dL (3.5-5.2); Alkaline Phosphatase 208 U/L (35-105); Anion Gap 15.1 (5-19); Aspartate Amino Transferase 19 U/L (0-32); Blood Urea Nitrogen 13 mg/dL (8-23); Carbon Dioxide 25 mmol/L (22-29); Chloride 99 mmol/L (98-107); Globulin 2.3 g/dL (1.3-4.6); Glucose 176 mg/dL (65-115); Osmolality Calculated 284 mOsm/kg (285-295); Potassium 4.1 mmol/L (3.5-5.1); Sodium 135 mmol/L (136-145); Total Bilirubin 0.4 mg/dL (0.15-1.2); Total Protein 5.7 g/dL (6.6-8.7)
[2023-01-22 10:09] LABS: Platelet Count 19 10^3/cmm (157-399); Slide Review Slide Review Perform
[2023-01-22] MEDS: epoetin alfa 40,000 Unit/mL INJ (non-esrd, onc only) 40000 UNIT SUBCUT (10:49)
[2023-01-22 10:51] VITALS: BP 130/77; PULSE 79; RESP 18; TEMP 36.6; O2SAT 98
[2023-01-26 09:05] VITALS: BP 127/75; PULSE 82; RESP 17; TEMP 36.6; O2SAT 98; BMI 27.8
[2023-01-26 09:26] LABS: Basophils % 0.3 %; Hematocrit 27.1 % (36-47); Lymphocytes # 0.5 10^3/uL (0.8-4.8); Lymphocytes % 14.5 %; Mean Corpuscular Hemoglobin 30.9 pg (27-33); Mean Corpuscular Volume 99.6 fl (85-98); Mean Platelet Volume 12.6 fL (7.4-10.4); Monocytes # 0.6 10^3/uL (0.2-0.9); Monocytes % 18.2 %; Neutrophils # 2.17 10^3/uL (1.8-7.7); Neutrophils % 66.7 %; Nucleated Red Blood Cells % 0 %; Platelet Count 76 10^3/cmm (157-399); Red Blood Count 2.72 10^6/uL (3.85-5.65); Red Cell Distribution Width 18.6 % (12.1-15.1); White Blood Count 3.25 10^3/uL (3.29-11.43)
[2023-01-26 10:15] VITALS: BP 127/75; PULSE 82; RESP 17; TEMP 36.6; O2SAT 98
== END 2023-01-27 23:59 | disposition home or self-care (01) ==
PROVIDERS: PCP Nurse Practitioner; Visit Provider Internal Medicine Medical Oncology
DX: D69.6 Thrombocytopenia, unspecified (principal); C22.1 Intrahepatic bile duct carcinoma
CPT/HCPCS: 36591; 36592; 80053; 85025; 86850; 86900; 96365; 96366; 96367; 96375; 96413; 96417; J0885; J1100; J1200; J1453; J1642; J1940; J2469; J3475; J3480; J3490; J7030; J7040; J7050; J9060; J9201

== ENCOUNTER 2023-01-29 13:21 | Outpatient (CLI) | payer MEDICARE, SELFPAY ==
[2023-01-29] MEDS: iohexol 350 mg/mL 500 mL Btl (per mL) IV (13:37)
[2023-01-29] MEDS: iohexol 350 mg/mL 500 mL Btl (per mL) PO (13:37)
--- NOTE | 2023-01-29 14:00 | CT_ITS ---
WS: [id number] CT CHEST, ABDOMEN AND PELVIS WITH CONTRAST HISTORY: cholangiocarcinoma TECHNIQUE: Contiguous 5 mm axial imaging performed through the chest, abdomen and pelvis with IV cont rast, oral contrast has been provided. Coronal and sagittal reformats chest. Coronal and sagittal ref ormats through the abdomen and pelvis. All CT scans at [facility] use at least one of these d ose optimization techniques: automated exposure control; mA and/or kV adjustment per patient size (in cludes targeted exams where dose is matched to clinical indication); or iterative reconstruction. CONTRAST: Omnipaque 350; 100 mL IV. DLP: 1046.87 mGy.cm COMPARISON: 10/20/[address]: Very slight hazy opacification superior segment RIGHT lower lobe could potentially be an ea rly metastatic lesion or focal pneumonitis. No additional suspicious nodules within the lungs. No pne umonia. No pericardial or pleural effusions. No mediastinal or hilar lymph nodes. Normal size heart. 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 Small bilateral thyroid nodules. The largest is 10 mm inferior LEFT thyroid. Abdomen CT: Abnormal liver. Continued capsular contraction of the liver. There is a lobulated contour especially of the RIGHT lobe. Multiple low-attenuation peripherally enhancing masses are identified. Some of these masses have decreased in size. The largest necrotic appearing mass in the inferior RIG HT lobe of the liver measures at least 8.7 x 4.1 cm. This mass appears to extend beyond the liver cap igor and may be invading this hepatic flexure and towards the IVC. There is diffuse hepatic duct dila tation. Portal vein occlusion is probably by tumor thrombus. Gallbladder is not evident and may have been removed. No common bile duct stent is identified. Spleen is mildly enlarged with numerous granul omata. Small caliber pancreas. No definite invasion into the pancreas by the liver mass. No adrenal m ass. No renal obstruction. Mild atherosclerosis aorta. Stomach is distended slightly with oral contrast. There is mild soft tissue thickening at the GE junc tion which may in part be due to under distention. No small bowel obstruction. No colon obstruction a gain there is increased soft tissue attenuation in the hepatic flexure and the ascending colon for wh ich tumor invasion is not excluded. Peritoneal nodule anterior to the LEFT lobe of liver measures 1.0 cm. Previously described mesenteric implant along the LEFT peritoneum is not identified. Reidentified is a 2.1 x 1.7 cm RIGHT paracolic gutter omental implant. Slightly decreased in size. There are a few small scattered mesenteric lymph nodes which are very small. Pelvic CT: No free fluid. No GI tract obstruction. No mesenteric implants are identified within the c ul-de-sac on today's examination. No osteoblastic or osteolytic bone disease. Grade 1 anterolisthesis of L4. Advanced degenerative caldwell ges in the thoracic and lumbar spine. IMPRESSION: 1. Continued mild interval improvement in the previously described metastatic sites throughout the li shimon. There is still a large confluent mass in the RIGHT lobe of the liver measuring 8.7 x 4.1 cm whic h appears to be extending beyond the liver capsule. Possibly invading the hepatic flexure. Overall so me of the additional metastatic sites in the RIGHT lobe the liver are decreasing. 2. Continued marked intrahepatic duct dilatation. 3. Moderate improvement in the peritoneal implants as compared to 10/20/2022. The LEFT peritoneal impl ant has actually resolved. Decrease in size of the RIGHT peritoneal implant now measuring 2.1 x 1.7 c m. There are a few small additional subcentimeter lymph nodes in the mesentery. 4. No metastatic lesions within the lungs. 5. Abnormal low-attenuation within the ascending colon and hepatic flexure. Posttreatment edema versu s direct tumor extension.
== END 2023-01-29 13:22 | disposition home or self-care (01) ==
LOC: RAD 13:21
PROVIDERS: PCP Nurse Practitioner; Visit Provider Internal Medicine Medical Oncology
DX: C22.1 Intrahepatic bile duct carcinoma (principal); C78.7 Secondary malignant neoplasm of liver and intrahepatic bile duct
CPT/HCPCS: 71260; 74177; Q9967

== ENCOUNTER 2023-02-05 08:00 | Oncology outpatient (recurring) (ONCR) | payer MEDICARE, SELFPAY ==
[2023-01-29 09:13] VITALS: BP 91/57; PULSE 80; RESP 17; TEMP 36.3; O2SAT 98
[2023-01-29] MEDS: epoetin alfa-epbx 40,000 Unit/mL SDV (non-esrd, ONC only) 40000 UNIT SUBCUT (09:30)
[2023-01-29 09:35] VITALS: BP 91/57; PULSE 80; RESP 17; TEMP 36.8; O2SAT 98
[2023-02-05 08:07] VITALS: BMI 28.5
[2023-02-05 08:13] LABS: Basophils % 0.5 %; Eosinophils % 0.3 %; Hematocrit 34.2 % (36-47); Lymphocytes # 0.7 10^3/uL (0.8-4.8); Mean Corpuscular HGB Conc 30.4 g/dL (30-55); Mean Corpuscular Hemoglobin 30.1 pg (27-33); Mean Corpuscular Volume 99.1 fl (85-98); Mean Platelet Volume 10.1 fL (7.4-10.4); Monocytes # 0.7 10^3/uL (0.2-0.9); Monocytes % 18.4 %; Neutrophils % 60.3 %; Nucleated Red Blood Cells % 0 %; Platelet Count 195 10^3/cmm (157-399); Red Blood Count 3.45 10^6/uL (3.85-5.65); Red Cell Distribution Width 17.8 % (12.1-15.1); White Blood Count 3.65 10^3/uL (3.29-11.43)
[2023-02-05 08:40] LABS: Alanine Aminotransferase 12 U/L (0-33); Albumin Level 3.2 g/dL (3.5-5.2); Alkaline Phosphatase 207 U/L (35-105); Aspartate Amino Transferase 22 U/L (0-32); Blood Urea Nitrogen 9 mg/dL (8-23); Calcium 9.1 mg/dL (8.5-10.5); Carbon Dioxide 24 mmol/L (22-29); Chloride 102 mmol/L (98-107); Globulin 2.4 g/dL (1.3-4.6); Glucose 170 mg/dL (65-115); Osmolality Calculated 285 mOsm/kg (285-295); Sodium 136 mmol/L (136-145); Thyroid Stimulating Hormone 2.01 uIU/mL (0.27-4.20); Total Bilirubin 0.6 mg/dL (0.15-1.2); Total Protein 5.6 g/dL (6.6-8.7)
[2023-02-05 08:41] LABS: Anion Gap 14.5 (5-19); Potassium 4.5 mmol/L (3.5-5.1)
[2023-02-05 09:08] LABS: Cancer Antigen 19 9 106.9 U/mL (0-35)
[2023-02-05] MEDS: sodium chloride 0.9% 250 ML 75 ML IV (10:22)
[2023-02-05] MEDS: durvalumab 1,500 MG in sodium chloride 0.9% 250 ML 280 MG IV (10:28)
[2023-02-05] MEDS: epoetin alfa 40,000 Unit/mL INJ (non-esrd, onc only) 40000 UNIT SUBCUT (12:21)
== END 2023-02-05 23:59 | disposition home or self-care (01) ==
PROVIDERS: PCP Nurse Practitioner; Visit Provider Internal Medicine Medical Oncology
DX: D64.81 Anemia due to antineoplastic chemotherapy (principal); T45.1X5A Adverse effect of antineoplastic and immunosuppressive drugs, initial encounter; C22.1 Intrahepatic bile duct carcinoma; Z79.899 Other long term (current) drug therapy; Z51.11 Encounter for antineoplastic chemotherapy
CPT/HCPCS: 71260; 74177; 80053; 84443; 85025; 86301; 96372; 99215; J0885; J1642; J7050; J9173; Q5106; Q9967

== ENCOUNTER 2023-03-05 07:26 | Oncology outpatient (recurring) (ONCR) | payer MEDICARE, SELFPAY ==
[2023-03-05 07:58] VITALS: BP 139/79; PULSE 75; O2SAT 96
[2023-03-05 08:09] LABS: Basophils % 0.2 %; Eosinophils % 0.2 %; Hematocrit 36.1 % (36-47); Lymphocytes # 0.7 10^3/uL (0.8-4.8); Lymphocytes % 14.2 %; Mean Corpuscular HGB Conc 31.3 g/dL (30-55); Mean Corpuscular Hemoglobin 29.4 pg (27-33); Mean Platelet Volume 10.6 fL (7.4-10.4); Monocytes # 0.6 10^3/uL (0.2-0.9); Monocytes % 11.9 %; Neutrophils # 3.44 10^3/uL (1.8-7.7); Neutrophils % 73.1 %; Nucleated Red Blood Cells % 0 %; Platelet Count 146 10^3/cmm (157-399); Red Blood Count 3.84 10^6/uL (3.85-5.65); Red Cell Distribution Width 15.3 % (12.1-15.1); White Blood Count 4.71 10^3/uL (3.29-11.43)
[2023-03-05 08:35] LABS: Alanine Aminotransferase 15 U/L (0-33); Albumin Level 3.5 g/dL (3.5-5.2); Alkaline Phosphatase 248 U/L (35-105); Anion Gap 13.9 (5-19); Aspartate Amino Transferase 29 U/L (0-32); Blood Urea Nitrogen 12 mg/dL (8-23); Calcium 9.6 mg/dL (8.5-10.5); Carbon Dioxide 27 mmol/L (22-29); Chloride 101 mmol/L (98-107); Globulin 2.8 g/dL (1.3-4.6); Glucose 201 mg/dL (65-115); Osmolality Calculated 291 mOsm/kg (285-295); Potassium 3.9 mmol/L (3.5-5.1); Sodium 138 mmol/L (136-145); Thyroid Stimulating Hormone 0.66 uIU/mL (0.27-4.20); Total Bilirubin 0.8 mg/dL (0.15-1.2); Total Protein 6.3 g/dL (6.6-8.7)
[2023-03-05] MEDS: durvalumab 1,500 MG in sodium chloride 0.9% 250 ML 280 MG IV (09:30)
[2023-03-05 10:42] VITALS: BP 148/79; PULSE 73; O2SAT 98
[2023-03-05 11:27] LABS: Cancer Antigen 19 9 76.17 U/mL (0-35)
== END 2023-03-05 23:59 | disposition home or self-care (01) ==
PROVIDERS: Internal Medicine; PCP Nurse Practitioner; Visit Provider Internal Medicine Medical Oncology
DX: D64.81 Anemia due to antineoplastic chemotherapy (principal); Z51.11 Encounter for antineoplastic chemotherapy; Z51.12 Encounter for antineoplastic immunotherapy; C22.1 Intrahepatic bile duct carcinoma; I10 Essential (primary) hypertension; Z79.899 Other long term (current) drug therapy
CPT/HCPCS: 80053; 84443; 85025; 86301; 96413; 99215; J7050; J9173

== ENCOUNTER → 2023-03-09 13:06 | Outpatient (BNVA) | payer MEDICARE, SELFPAY | PROVIDERS: PCP Nurse Practitioner; Referring Provider Internal Medicine; Visit Provider Surgery | DX: K63.9 Disease of intestine, unspecified (principal) | CPT/HCPCS: 99204 ==

== ENCOUNTER 2023-03-18 06:48 | Day surgery (SDC) | payer MEDICARE, SELFPAY ==
--- NOTE | 2023-03-18 07:02 | P.HPUD_ITS ---
Surgery/Procedure H&P Update DATE OF PROCEDURE: March 18, 2023 DATE H&P PERFORMED: 03/09/23 H&P UPDATE INFORMATION: I have reviewed H&P completed within last 30 days, I have examined patient prior to procedure, No changes to prior documentation and [place] [facility] [place] indicated PLANNED PROCEDURE: Operation Date: 03/18/23 07:50 Proposed Procedures p [id number] colon G0121 screen colon A risk K63.9(Not Applicable) - Yoel Almanzar MD
[2023-03-18 07:03] VITALS: BP 142/74; PULSE 82; RESP 18; TEMP 36.2; O2SAT 97; BMI 28.7
[2023-03-18] MEDS: sodium chloride 0.9% 1,000 ML 30 ML IV (07:13)
[2023-03-18 07:16] LABS: Glucose Point of Care 113 mg/dL (70-110)
--- NOTE | 2023-03-18 07:45 | ANES.PREANE2 ---
Pre-Anesthetic Assessment Height/Weight: Height 1.57 m Weight 71.214 kg Temp Pulse Resp BP Pulse Ox O2 Del Method 97.2 F L 82 18 142/74 97 Room Air 03/18/23 07:03 03/18/23 07:03 03/18/23 07:03 03/18/23 07:03 03/18/23 07:03 03/18/23 07:03 Preop Diagnosis: colonic thickening Operation Date: 03/18/23 07:50 Proposed Procedures p [id number] colon G0121 screen colon A risk K63.9(Not Applicable) - Yoel Almanzar MD Familial anesthetic complications: None Was Beta Sindhu taken within 24 hours: N/A Was Clonidine taken within 24 hours: N/A Last intake: Intake Last Liquid Date 03/17/23 Last Liquid Time 20:00 Last Solid Date 03/16/23 Last Solid Time 19:00 Social No alcohol and No tobacco Exam alert and oriented x 3 Airway Submandibular: within normal limits Mallampati: Class II Dentition: partials (upper) History/ROS No significant history except as noted Pulmonary None reported CV/HEM Hypertension None reported Hepatic liver cancer GI colonic thickening Metabolic Diabetes Mellitus [facility] None reported Neuropsych None reported Anesthetic Plan ASA status: 3 Anesthesia: MAC Risk of > 500 ml blood loss (7ml/kg in children): No Medications/Allergies Home Medications Medication Instructions Recorded Confirmed Last Taken Type nitroglycerin 0.4 mg sublingual 0.4 mg sublingual Q5M PRN chest 05/03/20 03/16/23 09/26/22 Rx tablet pain 30 days #30 tabs omeprazole magnesium 20 mg 20 mg PO DAILY PRN Heartburn 01/03/22 03/16/23 09/26/22 History tablet,delayed release (Prilosec OTC) metformin 500 mg tablet,extended 2,000 mg (4 x 500 mg) PO DAILY 07/17/22 03/16/23 03/16/23 Rx release 24 hr #120 tabs lorazepam 1 mg tablet 0.5 - 1 mg (0.5 - 1 x 1 mg) PO Q6H 07/31/22 03/18/23 03/16/23 Rx PRN Severe Nausea #30 tabs prochlorperazine maleate 10 mg 10 mg PO Q4H PRN Mild Nausea #30 0503/16/23 09/26/22 Rx tablet (Compazine) tabs Wheelchair #1 ea 09/18/22 03/09/23 09/26/22 Rx oxycodone 5 mg tablet 5 mg PO QID PRN pain 30 days #120 01/26/23 03/16/23 Unknown Rx tabs ondansetron 4 mg disintegrating 4 mg PO Q8H PRN nausea and 03/05/23 03/16/23 Unknown Rx tablet vomiting #30 tabs furosemide 40 mg tablet 40 mg PO DAILY PRN Edema 03/16/23 03/16/23 Unknown History potassium chloride 10 mEq 10 meq PO DAILY PRN Edema 03/16/23 03/16/23 Unknown History tablet,extended release Allergies Allergy/AdvReac Type Severity Reaction Status Date / Time venom-wasp Allergy Mild swelling Verified 03/09/23 13:30 and itching Current Medications Generic Name Dose Route Start Last Admin Trade Name Freq PRN Reason Stop Dose Admin Sodium Chloride 1,000 mls @ 30 mls/hr 03/18/23 07:00 03/18/23 07:13 Sodium Chloride 0.9% IV 03/19/23 06:59 30 mls/hr .Q24H RIMMA Administration PFSH Anesthesia Medical History Anemia Cholangiocarcinoma Chronic hyponatremia Fall Generalized weakness Hyponatremia Cystitis Type 2 diabetes mellitus Hepatobiliary cancer Intrahepatic bile duct dilation Vitamin D deficiency Essential hypertension Diabetes mellitus with hyperglycemia, without long-term current use of insulin Surgical History Hx of endoscopic retrograde cholangiopancreatography (01/10/22) ERCP with biliary stent placement History of esophagogastroduodenoscopy (07/10/22) EGD with endoscopic ultrasound and FNA biopsies of liver and eleazar hepatis lymph node History of endoscopic retrograde cholangiopancreatography (05/23/22) ERCP with removal of biliary stent Family History Mother Diabetes Father Heart attack Sister Breast cancer Social History Smoking and tobacco/nicotine status: never used tobacco/nicotine Second hand smoke exposure: No Alcohol intake: never Substance/Drug Use: never Adopted: No Caregiver/support person: No Lives independently: Yes Household members: spouse Housing: House Marital status: Number of children: 2 service: No Current occupational status: retired Data Anesthesia Cardiac Studies: No Data to Display
[2023-03-18 08:23] VITALS: BP 157/73; PULSE 74; RESP 16; TEMP 36.1; O2SAT 96
[2023-03-18 08:39] VITALS: BP 152/80; PULSE 75; RESP 16; O2SAT 98
--- NOTE | 2023-03-18 13:25 | ANE.PACU2 ---
Inpatient post-anesthesia follow up: Airway intact: Yes Vital signs: Temperature 97 F Pulse Rate 75 Respiratory Rate 16 Blood Pressure 152/80 Pulse Oximetry 98 Oxygen Delivery Me thod Room Air Oxygen Flow Rate Fraction of Inspir ed Oxygen Hydration adequate: Yes Nausea and vomiting: No Pain level: 2 Mental status: Baseline
== END 2023-03-18 09:10 | disposition home or self-care (01) ==
PROVIDERS: PCP Nurse Practitioner; Visit Provider Surgery
PROC: 0DJD8ZZ Inspection of Lower Intestinal Tract, Via Natural or Artificial Opening Endoscopic (ICD-10-PCS; CPT 45330; principal; 2023-03-18 07:50)
DX: K63.9 Disease of intestine, unspecified (principal); R93.3 Abnormal findings on diagnostic imaging of other parts of digestive tract; I10 Essential (primary) hypertension; E11.9 Type 2 diabetes mellitus without complications; Z79.84 Long term (current) use of oral hypoglycemic drugs; Z85.09 Personal history of malignant neoplasm of other digestive organs
CPT/HCPCS: 36416; 45330; 82962; J2704; J7030

== ENCOUNTER → 2023-03-26 15:15 | Outpatient (BNVA) | payer MEDICARE, SELFPAY | PROVIDERS: PCP Nurse Practitioner; Visit Provider Surgery | DX: C22.1 Intrahepatic bile duct carcinoma (principal) | CPT/HCPCS: 99212 ==

== ENCOUNTER 2023-04-09 08:00 | Oncology outpatient (recurring) (ONCR) | payer MEDICARE, SELFPAY ==
[2023-04-02 08:15] VITALS: BP 133/75; PULSE 78; RESP 16; TEMP 36.4; O2SAT 95
[2023-04-02 08:24] LABS: Basophils % 0.4 %; Eosinophils % 0.2 %; Hematocrit 36.6 % (36-47); Lymphocytes # 0.8 10^3/uL (0.8-4.8); Lymphocytes % 15.4 %; Mean Corpuscular HGB Conc 32.5 g/dL (30-55); Mean Corpuscular Hemoglobin 29.1 pg (27-33); Mean Corpuscular Volume 89.5 fl (85-98); Mean Platelet Volume 10.5 fL (7.4-10.4); Monocytes # 0.6 10^3/uL (0.2-0.9); Monocytes % 11.5 %; Neutrophils % 72.3 %; Nucleated Red Blood Cells % 0 %; Platelet Count 209 10^3/cmm (157-399); Red Blood Count 4.09 10^6/uL (3.85-5.65); Red Cell Distribution Width 15.6 % (12.1-15.1); White Blood Count 5.12 10^3/uL (3.29-11.43)
[2023-04-02 09:26] LABS: Alanine Aminotransferase 38 U/L (0-33); Albumin Level 3.1 g/dL (3.5-5.2); Alkaline Phosphatase 485 U/L (35-105); Anion Gap 12.8 (5-19); Aspartate Amino Transferase 71 U/L (0-32); Blood Urea Nitrogen 11 mg/dL (8-23); Calcium 9.1 mg/dL (8.5-10.5); Cancer Antigen 19 9 257.1 U/mL (0-35); Carbon Dioxide 27 mmol/L (22-29); Chloride 98 mmol/L (98-107); Globulin 3.1 g/dL (1.3-4.6); Glucose 162 mg/dL (65-115); Osmolality Calculated 281 mOsm/kg (285-295); Potassium 3.8 mmol/L (3.5-5.1); Sodium 134 mmol/L (136-145); Total Bilirubin 1.7 mg/dL (0.15-1.2); Total Protein 6.2 g/dL (6.6-8.7)
[2023-04-02 10:03] LABS: Free T4 Free Thyroxine 1.35 ng/dL (0.82-1.77)
--- NOTE | 2023-04-02 12:12 | PC.NURSE ---
Dr roland reviewed labs with no treatment today and will reschedule for one week.mm
[2023-04-09 08:03] VITALS: BP 134/81; PULSE 83; RESP 18; TEMP 36.6; O2SAT 96
[2023-04-09 08:27] LABS: Basophils % 0.2 %; Eosinophils % 0.1 %; Hematocrit 39.9 % (36-47); Lymphocytes # 1.4 10^3/uL (0.8-4.8); Lymphocytes % 17.2 %; Mean Corpuscular HGB Conc 31.8 g/dL (30-55); Mean Corpuscular Hemoglobin 29.3 pg (27-33); Mean Corpuscular Volume 92.1 fl (85-98); Mean Platelet Volume 11.1 fL (7.4-10.4); Monocytes # 0.6 10^3/uL (0.2-0.9); Monocytes % 7.3 %; Neutrophils # 6.02 10^3/uL (1.8-7.7); Neutrophils % 74.8 %; Nucleated Red Blood Cells % 0 %; Platelet Count 300 10^3/cmm (157-399); Red Blood Count 4.33 10^6/uL (3.85-5.65); Red Cell Distribution Width 16.2 % (12.1-15.1); White Blood Count 8.06 10^3/uL (3.29-11.43)
[2023-04-09 09:52] LABS: Alanine Aminotransferase 24 U/L (0-33); Alkaline Phosphatase 512 U/L (35-105); Anion Gap 16.9 (5-19); Aspartate Amino Transferase 43 U/L (0-32); Blood Urea Nitrogen 14 mg/dL (8-23); Calcium 9.6 mg/dL (8.5-10.5); Carbon Dioxide 23 mmol/L (22-29); Chloride 101 mmol/L (98-107); Globulin 3.4 g/dL (1.3-4.6); Glucose 140 mg/dL (65-115); Osmolality Calculated 287 mOsm/kg (285-295); Potassium 3.9 mmol/L (3.5-5.1); Sodium 137 mmol/L (136-145); Total Protein 6.4 g/dL (6.6-8.7)
[2023-04-09 10:15] VITALS: BP 120/74; PULSE 69; RESP 16; TEMP 36.6; O2SAT 99
[2023-04-09 11:21] LABS: Cancer Antigen 19 9 213.6 U/mL (0-35)
== END 2023-04-29 23:59 | disposition home or self-care (01) ==
PROVIDERS: Internal Medicine; PCP Nurse Practitioner; Visit Provider Internal Medicine Medical Oncology
DX: C22.1 Intrahepatic bile duct carcinoma; Z53.9 Procedure and treatment not carried out, unspecified reason; D50.9 Iron deficiency anemia, unspecified
CPT/HCPCS: 80053; 84439; 85025; 86301; 99215

== ENCOUNTER 2023-04-10 08:59 | Outpatient (CLI) | payer MEDICARE, SELFPAY ==
--- NOTE | 2023-04-10 09:30 | CT_ITS ---
WS: [id number] CT CHEST, ABDOMEN, AND PELVIS TECHNIQUE: Contrast-enhanced CT of the chest, abdomen, and pelvis with coronal and sagittal reformatt ed images. CLINICAL INFORMATION: elevated liver enzymes COMPARISON: None. DLP: 720.[address] scans at [facility] use at least one of these dose optimization techniques: automated e xposure control; mA and/or kV adjustment per patient size (includes targeted exams where dose is matc hed to clinical indication); or iterative reconstruction. CT CHEST: Lungs are well aerated. No acute pulmonary infiltrates. No suspicious pulmonary parenchymal abnormali ties. No evidence of metastatic disease in the chest. Normal caliber thoracic aorta. A few small thyr oid nodules. No mediastinal or hilar lymphadenopathy. Moderate thoracic kyphosis. Hypertrophic change s thoracic spine. CT ABDOMEN AND PELVIS: Hepatomegaly with stable intrahepatic biliary ductal dilatation. 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 Confluent RIGHT hepatic metastasis is similar in appearance measuring 8.1 x 4.0 cm. Stable RIGHT lateral hepatic metastasis in the inferior RIGHT hepatic lobe. Stable enhancing peritoneal metastasis in the RIGHT paracolic gutter measuring 2.3 cm. Additional sma ller peritoneal implants are unchanged in appearance. Stable scattered small lymph nodes in the mesen parvin. No evidence of small large bowel obstruction. Ascending colon and hepatic flexure colon closely abuts the liver metastasis but appear nonobstructed. Splenic granulomas. Small esophageal hiatal hernia. Normal caliber abdominal aorta. Adrenal glands ar e normal. Normal renal parenchymal enhancement. No hydronephrosis. Urine distended bladder. Advanced spondylitic changes. IMPRESSION: 1. No evidence of metastatic disease in the chest. Stable large confluent mass in RIGHT hepatic lobe not significantly changed since 01/29/2023 measuring approximately 8.1 x 4.0 cm. 2. Stable intrahepatic biliary ductal dilatation. Additional metastatic lesions in the inferior hepa tic lobe are similar in appearance. 3. 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 4. Stable peritoneal implants. 5. No convincing evidence of progressed disease in the abdomen or pelvis.
[2023-04-10] MEDS: iohexol 350 mg/mL 500 mL Btl (per mL) PO (10:21)
[2023-04-10] MEDS: iohexol 350 mg/mL 500 mL Btl (per mL) IV (10:33)
== END 2023-04-10 09:00 | disposition home or self-care (01) ==
LOC: RAD 08:59
PROVIDERS: PCP Nurse Practitioner; Visit Provider Internal Medicine
DX: C78.7 Secondary malignant neoplasm of liver and intrahepatic bile duct (principal); C24.9 Malignant neoplasm of biliary tract, unspecified; R78.4 Finding of other drugs of addictive potential in blood
CPT/HCPCS: 71260; 74177; Q9967

== ENCOUNTER 2023-04-13 13:40 | Outpatient (CLI) | payer MEDICARE, SELFPAY ==
--- NOTE | 2023-04-13 14:30 | MR_ITS ---
WS: [id number] MRI/MRCP OF THE ABDOMEN WITHOUT GADOLINIUM ENHANCEMENT TECHNIQUE: Coronal T2 Fase BH, Axial T2 Fase BH, Axial T2 FS BH, Zxial 3D Padilla BH, Axial DWI BH, 2D MRCP Radial BH, 3D MRCP (Resp), and Axial 3D Dyn BH Post sequences. CLINICAL INFORMATION: elevated liver enzymes COMPARISON: CT 04/10/2023 FINDINGS: Hepatomegaly with intrahepatic biliary ductal dilatation. Previously described thrombosis o f the portal vein with cavernous transformation. Diffuse confluent enhancing RIGHT hepatic metastasis extending into the LEFT hepatic lobe measuring approximately 14.3 x 8.4 cm. Enhancing disease extend s into the medial and lateral segments of the RIGHT hepatic lobe and also extends into the LEFT hepat ic lobe. This is better appreciated on the MRI today compared to the recent CT. Diffuse extensive enh ancing infiltrating metastasis. Small subhepatic metastasis overlying the LEFT hepatic lobe anteriorl y is unchanged. Normal spleen. Lung bases are well aerated. Small esophageal hiatal hernia. Normal caliber upper abdominal aorta. Adrenal glands are normal. Norm al renal parenchymal enhancement. No hydronephrosis. Lumbar scoliosis. Impression: 1. T2 hyperintense confluent enhancing hepatic metastasis involving the RIGHT hepatic lobe extending medially and laterally. This also extends to involve the LEFT hepatic lobe. Extent of infiltrating h epatic metastasis better demonstrated on today's MRI 2. Largest confluent area of metastasis measures 14.3 x 8.4 cm in the RIGHT hepatic lobe extending i nto the LEFT hepatic lobe. 3. 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 4. Small peritoneal implant overlying the LEFT hepatic lobe anteriorly unchanged. 5. Small esophageal hiatal hernia.
[2023-04-13] MEDS: gadobenate dimeglumine 20 mL vial IV (15:17)
== END 2023-04-13 13:41 | disposition home or self-care (01) ==
LOC: RAD 13:41
PROVIDERS: PCP Nurse Practitioner; Visit Provider Internal Medicine
DX: C78.7 Secondary malignant neoplasm of liver and intrahepatic bile duct (principal); C24.9 Malignant neoplasm of biliary tract, unspecified; R74.8 Abnormal levels of other serum enzymes; I81 Portal vein thrombosis; K44.9 Diaphragmatic hernia without obstruction or gangrene
CPT/HCPCS: 74183; A9577

== ENCOUNTER → 2023-04-16 11:37 | Outpatient (BNVA) | payer MEDICARE, SELFPAY | PROVIDERS: PCP Nurse Practitioner; Visit Provider Nurse Practitioner | DX: E55.9 Vitamin D deficiency, unspecified (principal); E11.9 Type 2 diabetes mellitus without complications; I10 Essential (primary) hypertension | CPT/HCPCS: 81000; 87086 ==

== ENCOUNTER 2023-05-03 14:18 | Emergency (ER) | payer MEDICARE, SELFPAY ==
[2023-05-03] VITALS (39 sets, daily range): BP systolic 105–137; BP diastolic 53–82; PULSE 94–105; RESP 14–25; TEMP 36.8; O2SAT 91–100; BMI 26.9
--- NOTE | 2023-05-03 14:19 | XRR_ITS ---
PROCEDURE INFORMATION: Exam: XR Chest Exam date and time: 05/03/2023 4:55 PM Age: 72 years old Clinical indication: Patient HX: Weakness; Syncope TECHNIQUE: Imaging protocol: Radiologic exam of the chest. Views: 1 view. COMPARISON: CT chest abdpel w/*[id number] 04/10/2023 10:30 AM FINDINGS: Lungs: There are bilateral apical fibrotic changes. Pleural spaces: There is blunting of the left costophrenic angle that might be related to atelectasis or small left pleural effusion. Heart/Mediastinum: Mild cardiomegaly. Diaphragm: There is elevation of the right hemidiaphragm. Bones/joints: There is moderate degenerative disease of bilateral acromioclavicular joints and bilateral glenohumeral joints. There is narrowing of the right subacromial distance consistent with chronic rotator cuff tear. XR/XR chest 1V portable [id number] IMPRESSION: No acute cardiopulmonary process.
--- NOTE | 2023-05-03 14:49 | ECG_ITS ---
[facility] Test Date: 2023-05-03 Pat Name: Marceal Rosas Department: Room: Gender: Female Chainer: : 1950 Requested By: David Pineda Order Number: [id number] Hero MD: Tirso Peralta M.D. Measurements Intervals [place] Rate: 98 P: 32 [place]: 140 QRS: -62 QRSD: 109 T: 65 QT: 330 QTc: 422 Interpretive Statements SINUS RHYTHM WITH OCCASIONAL SUPRAVENTRICULAR PREMATURE COMPLEXES LEFT AXIS DEVIATION [QRS AXIS < -30] LOW QRS VOLTAGE IN PRECORDIAL LEADS [QRS DEFLECTION < 1.0 mV IN CHEST LEADS] POSSIBLE ANTERIOR MYOCARDIAL INFARCTION , OF INDETERMINATE AGE [30 ms Q WAVE IN V3/V4, OR R < 0.2 mV IN V4] Compared to ECG 07/27/2022 15:15:48 Left-axis deviation now present Left anterior fascicular block no longer present Myocardial infarct finding still present Electronically Signed On 05-04-2023 8:36:56 [employer] by Tirso Peralta M.D. [id number]
[2023-05-03 15:59] LABS: Basophils # 0.1 10^3/uL (0.0-0.1); Basophils % 0.5 %; Hematocrit 35.1 % (36-47); Lymphocytes % 4.6 %; Mean Corpuscular HGB Conc 33.9 g/dL (30-55); Mean Corpuscular Hemoglobin 30.6 pg (27-33); Mean Corpuscular Volume 90.2 fl (85-98); Mean Platelet Volume 10.6 fL (7.4-10.4); Monocytes # 1.5 10^3/uL (0.2-0.9); Monocytes % 7.3 %; Neutrophils # 17.28 10^3/uL (1.8-7.7); Neutrophils % 84.3 %; Nucleated Red Blood Cells % 0 %; Platelet Count 292 10^3/cmm (157-399); Red Blood Count 3.89 10^6/uL (3.85-5.65); Red Cell Distribution Width 18.3 % (12.1-15.1); White Blood Count 20.52 10^3/uL (3.29-11.43)
--- NOTE | 2023-05-03 16:04 | CTR_ITS ---
PROCEDURE INFORMATION: Exam: CT Abdomen And Pelvis With Contrast Exam date and time: 05/03/2023 5:01 PM Age: 72 years old Clinical indication: Other: Jaundice TECHNIQUE: Imaging protocol: Computed tomography of the abdomen and pelvis with contrast. Radiation optimization: All CT scans at this facility use at least one of these dose optimization techniques: automated exposure control; mA and/or kV adjustment per patient size (includes targeted exams where dose is matched to clinical indication); or iterative reconstruction. Contrast material: OMNI 350; Contrast volume: 100 ml; Contrast route: INTRAVENOUS (IV); COMPARISON: MR abdomen wo/w con* [id number] 04/13/2023 2:41 PM RADIATION DOSE METRICS: Total DLP (mGy-cm): 603.79 FINDINGS: Pleural spaces: Mild posterior right basilar effusion with subjacent atelectasis. This is new from prior CT exam 04/10/2023. Liver: Mild hepatic enlargement with large right hepatic mass or metastasis and intrahepatic biliary ductal dilatation as noted with recent prior exam. This includes extension or involvement around the hepatic hilum and into the inferior right hepatic lobe. Peripheral hypodense predominant fluid density focus is seen along the anterior and lateral and posterior right lobe liver, with significant interval increase from previous exam. This could represent subcapsular and/or peritoneal metastatic involvement. Metastatic involvement of the right lobe is in close proximity to the hepatic hilum, likely accounting for intrahepatic ductal dilatation, as well as previously noted main portal venous thrombosis with cavernous transformation. Gallbladder and bile ducts: Gallbladder is not evident. Common bile duct not readily visualized. No common bile duct stent is seen. Pancreas: Pancreas shows no focal abnormality. Spleen: Borderline spleen with benign splenic granulomas. Adrenal glands: Normal. No mass. Kidneys and ureters: No urinary tract stone or obstructive uropathy or perinephric stranding. Kidneys show no focal abnormality. Stomach and bowel: Distal ascending colon/hepatic flexure closely abuts the liver metastasis as noted with prior exam with inability to exclude some involvement of the wall.. No bowel dilatation or obstruction. No CT findings of diverticulitis or focal inflammatory change otherwise. Appendix: No evidence of appendicitis. Intraperitoneal space: Small peritoneal metastasis within the right paracolic gutter appears unchanged with previous exam. Small peritoneal nodule or metastasis anterior to the left lobe of the liver is unchanged with prior exam. Continued findings of scattered small lymph nodes in the mesentery. No significant ascites. No free air. Vasculature: Probable esophageal varices near the GE junction, as noted with prior exam. Mild atherosclerotic vascular disease with nonaneurysmal abdominal aorta. Lymph nodes: See Intraperitoneal space finding. Urinary bladder: Unremarkable as visualized. Reproductive: Unremarkable as visualized. Bones/joints: Degenerative change with degenerative disc disease lumbar. No acute osseous abnormality. Soft tissues: Unremarkable. CT/CT abdomen pelvis w con* [id number] IMPRESSION: 1. Large right hepatic mass or metastasis is again including involvement around the hepatic hilum and extension into the inferior right hepatic lobe. Associated intrahepatic biliary ductal dilatation is again seen with similar appearance to previous exam. 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 2. Interval increased hypodense predominant fluid density is seen about the subhepatic anterior, lateral, and posterior right lobe of the liver. This could represent subcapsular and/or peritoneal metastatic involvement. 3. Previous noted small peritoneal implants/metastasis appear similar without significant change with previous exam. 4. Gallbladder and common bile duct are not evident or visualized as noted with prior exam. 5. Distal ascending colon/hepatic flexure closely abuts the liver metastasis as noted with prior exam, with inability to exclude some involvement of the colonic wall at this level. No bowel dilatation or obstruction otherwise. 6. Mild posterior right basilar effusion with subjacent atelectasis is new from prior exam.
--- NOTE | 2023-05-03 16:06 | CTR_ITS ---
PROCEDURE INFORMATION: Exam: CT Head Without Contrast Exam date and time: 05/03/2023 4:57 PM Age: 72 years old Clinical indication: Altered mental status/memory loss; Additional info: Confusion TECHNIQUE: Imaging protocol: Computed tomography of the head without contrast. Radiation optimization: All CT scans at this facility use at least one of these dose optimization techniques: automated exposure control; mA and/or kV adjustment per patient size (includes targeted exams where dose is matched to clinical indication); or iterative reconstruction. COMPARISON: CR XR cervical spine 3V* [id number] 03/10/2017 12:37 PM RADIATION DOSE METRICS: Total DLP (mGy-cm): 986.98 FINDINGS: Brain: There is age-related mineralization of bilateral basal ganglia. There is pineal gland calcification. Cerebral ventricles: No ventriculomegaly. Pituitary gland and sella: There is a partially empty sella. Paranasal sinuses: There is a mucous retention cyst in the right sphenoid sinus. Mastoid air cells: Visualized mastoid air cells are well aerated. Bones/joints: Unremarkable. No acute fracture. Soft tissues: Unremarkable. CT/CT head wo con* [id number] IMPRESSION: No large territorial infarct or intracranial bleed.
--- NOTE | 2023-05-03 16:06 | ED_ITS ---
Documented by User: David Pineda MD 05/03/23 16:20 HPI - Fall 2 General: Chief Complaint: Weakness Stated Complaint: weakness, falling, blood in urine Time Seen by Provider: 05/03/23 15:58 Source: patient Mode of arrival: ambulatory Limitations: no limitations History of Present Illness: 72-year-old female who has a history of stage IV liver cancer patient is here with family family states that over the last 4 to 5 days she has had increasing jaundice she is also been confused extremely weak. States that she has been having falls and can barely walk now due to her weakness. She denies any pain no known fevers states her urine has been dark as well. Patient is extremely jaundiced here. Associated symptoms-after fall: Reports confusion; Denies abdominal pain, chest pain or neck pain Review of Systems 2 Const: Reports: fatigue and malaise; Denies: fever(s) or chills Eyes: Denies: eye discomfort ENMT: Denies: throat pain or dental pain Card: Denies: chest pain Resp: Denies: dyspnea GI: Denies: abdominal pain, nausea, vomiting or diarrhea : Denies: dysuria Musc: Denies: neck pain or back pain Skin/Breast: Reports: changes in skin color and jaundice; Denies: rash Neuro: Reports: confusion PFSH ED 2 PFSH: Medical History Anemia Cholangiocarcinoma Chronic hyponatremia Fall Generalized weakness Hyponatremia Cystitis Type 2 diabetes mellitus Hepatobiliary cancer Intrahepatic bile duct dilation Vitamin D deficiency Essential hypertension Diabetes mellitus with hyperglycemia, without long-term current use of insulin Surgical History Hx of endoscopic retrograde cholangiopancreatography (01/10/22) ERCP with biliary stent placement History of esophagogastroduodenoscopy (07/10/22) EGD with endoscopic ultrasound and FNA biopsies of liver and eleazar hepatis lymph node History of endoscopic retrograde cholangiopancreatography (05/23/22) ERCP with removal of biliary stent Family History Mother Diabetes Father Heart attack Sister Breast cancer Social History Smoking and tobacco/nicotine status: never used tobacco/nicotine Second hand smoke exposure: No Alcohol intake: never Substance/Drug Use: never Adopted: No Caregiver/support person: No Lives independently: Yes Household members: spouse Housing: House Marital status: Number of children: 2 service: No Current occupational status: retired Current occupational exposures/hazards: No Do you think of yourself as: Straight/Heterosexual Current gender identity: Female Physical Exam 2 Const: COMMON NORMALS: patient oriented x3 GENERAL APPEARANCE: ill appearing and frail appearing HENMT: COMMON NORMALS: normocephalic and atraumatic HEAD & SCALP: n ormocephalic and atraumatic Eye: COMMON NORMALS: Equal, round and reactive pupils present and EOMs intact bilaterally PUPIL: Yes Equal, round and reactive pupils present OTHER: scleral icterus Neck/C-Spine: COMMON NORMALS: full ROM and supple Chest: COMMONS NORMALS: normal inspection of the chest and normal palpation of entire chest wall Resp: COMMON NORMALS: normal respiratory effort, No retractions, No use of accessory muscles and clear to auscultation bilaterally AUSCULTATION: clear to auscultation bilaterally Cardio: COMMON NORMALS: regular rate, regular rhythm and No murmurs present (Cardio) RATE: regular rate RHYTHM: regular rhythm GI: COMMON NORMALS: Normal to inspection, nondistended, normoactive bowel sounds present, Soft to palpation, non-tender and no masses PALPATION: Yes Soft to palpation Extremity: COMMON NORMALS: normal to inspection and full ROM Neuro: COMMON NORMALS: patient oriented x3 and moves all extremities Psych: COMMON NORMALS: mental status grossly normal, Normal thought process present and cooperative THOUGHT PROCESS: Normal thought process present Skin: COMMON NORMALS: no wounds NARRATIVE SKIN EXAM: jaundice Course 2 Vital Signs: Vital signs: Vital Signs Temperature 98.3 F 05/03/23 14:40 Pulse Rate 101 H 05/03/23 22:00 Respiratory Rate 20 H 05/03/23 22:00 Blood Pressure 108/62 05/03/23 22:30 Pulse Oximetry 91 05/03/23 22:00 Oxygen Delivery Me thod Room Air 05/03/23 20:42 MDM - Fall Medical Records I reviewed the patient's medical records. Lab Data I reviewed the patient's lab results. 05/03/23 15:48 05/03/23 15:48 Radiology Impressions Chest X-Ray 05/03/23 14:19 IMPRESSION: No acute cardiopulmonary process. Abdomen/Pelvis CT 05/03/23 16:04 IMPRESSION: 1. Large right hepatic mass or metastasis is again including involvement around the hepatic hilum and extension into the inferior right hepatic lobe. Associated intrahepatic biliary ductal dilatation is again seen with similar appearance to previous exam. 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 2. Interval increased hypodense predominant fluid density is seen about the subhepatic anterior, lateral, and posterior right lobe of the liver. This could represent subcapsular and/or peritoneal metastatic involvement. 3. Previous noted small peritoneal implants/metastasis appear similar without significant change with previous exam. 4. Gallbladder and common bile duct are not evident or visualized as noted with prior exam. 5. Distal ascending colon/hepatic flexure closely abuts the liver metastasis as noted with prior exam, with inability to exclude some involvement of the colonic wall at this level. No bowel dilatation or obstruction otherwise. 6. Mild posterior right basilar effusion with subjacent atelectasis is new from prior exam. Head CT 05/03/23 16:06 IMPRESSION: No large territorial infarct or intracranial bleed. Laboratory Results WBC 20.52 10^3/uL (3.29-11.43) H 05/03/23 15:48 RBC 3.89 10^6/uL (3.85-5.65) 05/03/23 15:48 Hgb 11.90 g/dL (11.27-16.99) 05/03/23 15:48 Hct 35.1 % (36-47) L 05/03/23 15:48 MCV 90.2 fl (85-98) 05/03/23 15:48 MCH 30.6 pg (27-33) 05/03/23 15:48 MCHC 33.9 g/dL (30-55) 05/03/23 15:48 RDW 18.3 % (12.1-15.1) H 05/03/23 15:48 Plt Count 292 10^3/cmm (157-399) 05/03/23 15:48 MPV 10.6 fL (7.4-10.4) H 05/03/23 15:48 Neut % (Auto) 84.3 % 05/03/23 15:48 Lymph % (Auto) 4.6 % 05/03/23 15:48 Benzie % (Auto) 7.3 % 05/03/23 15:48 Eos % (Auto) 0.0 % 05/03/23 15:48 Baso % (Auto) 0.5 % 05/03/23 15:48 Neut # (Auto) 17.28 10^3/uL (1.8-7.7) H 05/03/23 15:48 Lymph # (Auto) 1.0 10^3/uL (0.8-4.8) 05/03/23 15:48 Benzie # (Auto) 1.5 10^3/uL (0.2-0.9) H 05/03/23 15:48 Eos # (Auto) 0.0 10^3/uL (0.0-0.8) 05/03/23 15:48 Baso # (Auto) 0.1 10^3/uL (0.0-0.1) 05/03/23 15:48 Nucleated RBC % (auto) 0 % 05/03/23 15:48 Nucleated RBCs # 0.0 /100WBC 05/03/23 15:48 PT 14.80 SECONDS (12.1-14.9) 05/03/23 15:48 INR 1.13 (0.8-1.2) 05/03/23 15:48 Sodium 130 mmol/L (136-145) L 05/03/23 15:48 Potassium 3.5 mmol/L (3.5-5.1) 05/03/23 15:48 Chloride 92 mmol/L (98-107) L 05/03/23 15:48 Carbon Dioxide 22 mmol/L (22-29) 05/03/23 15:48 Anion Gap 19.5 (5-19) H 05/03/23 15:48 BUN 42 mg/dL (8-23) H 05/03/23 15:48 Creatinine 0.8 mg/dL (0.5-0.9) 05/03/23 15:48 GFR Calculation Not Reportable 05/03/23 15:48 Glucose 180 mg/dL (65-115) H 05/03/23 15:48 Calculated Osmolality 285 mOsm/kg (285-295) 05/03/23 15:48 Lactic Acid 2.9 mmol/L (0.5-2.2) H 05/03/23 15:48 Lactic Acid (Sepsis) 2.4 mmol/L (0.5-2.2) H 05/03/23 18:37 Calcium 9.9 mg/dL (8.5-10.5) 05/03/23 15:48 Magnesium 1.5 mg/dL (1.7-2.3) L 05/03/23 15:48 Total Bilirubin 17.6 mg/dL (0.15-1.2) H* 05/03/23 15:48 AST 45 U/L (0-32) H 05/03/23 15:48 ALT 21 U/L (0-33) 05/03/23 15:48 Alkaline Phosphatase 352 U/L (35-105) H 05/03/23 15:48 Ammonia 48 umol/L (11-51) 05/03/23 16:22 Total Protein 6.3 g/dL (6.6-8.7) L 05/03/23 15:48 Albumin 2.9 g/dL (3.5-5.2) L 05/03/23 15:48 Globulin 3.4 g/dL (1.3-4.6) 05/03/23 15:48 TSH 0.63 uIU/mL (0.27-4.20) 05/03/23 15:48 Urine Color Clarion (Yellow) A 05/03/23 19:36 Urine Appearance Cloudy (CLEAR) A 05/03/23 19:36 Urine pH 6.5 (5-7) 05/03/23 19:36 Ur Specific [place]en 1.005 (1.005-1.030) 05/03/23 19:36 Urine Protein 1+ (Negative) H 05/03/23 19:36 Urine Glucose (UA) Norm (Normal) 05/03/23 19:36 Urine Ketones Negative (Negative) 05/03/23 19:36 Urine Blood 2+ (Negative) H 05/03/23 19:36 Urine Nitrate Negative (Negative) 05/03/23 19:36 Urine Bilirubin 3+ (Negative) H 05/03/23 19:36 Urine Urobilinogen 4 mg/dL (Negative) H 05/03/23 19:36 Ur Leukocyte Esterase 2+ (Negative) H 05/03/23 19:36 Urine RBC 15-25 /hpf (0-2) H 05/03/23 19:36 Urine WBC 25-40 /hpf (0-5) H 05/03/23 19:36 Ur Squamous Epith Cells 15-25 /hpf (0-5) H 05/03/23 19:36 Amorphous Sediment 2+ /hpf 05/03/23 19:36 Urine Bacteria 2+ /hpf (NONE) H 05/03/23 19:36 Hyaline Casts 0-4 /lpf H 05/03/23 19:36 Coarse Granular Casts 0-4 /lpf H 05/03/23 19:36 Urine Mucus 1+ /hpf 05/03/23 19:36 All radiology interpretation(s) finalized by discharge EKG Data EKG 1: I personally reviewed and interpreted this EKG as follows: EKG interpretation date: 05/03/23 EKG interpretation time: 14:49 Interpretation: nsr hr [address] elevation qrs 109 qtc 385 Discharge Plan Discharge Patient Disposition: Xfer Short-Term Hosp Clinical Impression: Hepatobiliary cancer, Acquired hyperbilirubinemia, Biliary obstruction Condition: Serious Prescriptions: No Action nitroglycerin 0.4 mg tablet, sublingual 0.4 mg sublingual Q5M PRN (Reason: chest pain) 30 Days Qty: 30 2RF Rx Instructions: do not exceed 3 doses per episode (DME) Wheelchair See Rx Instructions .Route .MEDSUPPLY Qty: 1 0RF Rx Instructions: As directed ondansetron 4 mg tablet,disintegrating 4 mg PO Q8H PRN (Reason: nausea and vomiting) Qty: 30 2RF oxycodone 5 mg tablet 5 mg PO QID PRN (Reason: pain) 30 Days Qty: 120 0RF prochlorperazine maleate [Compazine] 10 mg tablet 10 mg PO Q4H PRN (Reason: Mild Nausea) Qty: 30 3RF lorazepam 1 mg tablet 0.5 - 1 mg PO Q6H PRN (Reason: Severe Nausea) Qty: 30 3RF furosemide 40 mg tablet 40 mg PO DAILY PRN (Reason: Edema) potassium chloride 10 mEq tablet extended release 10 meq PO DAILY PRN (Reason: Edema) Rx Instructions: TAKE WITH FUROSEMIDE omeprazole magnesium [Prilosec OTC] 20 mg Tablet,Delayed Release (Dr/Ec) 20 mg PO DAILY PRN (Reason: Heartburn) Referrals: Aryan Cannon, MANAGER PMO-C [Primary Care Provider] - Coding Level of Care Code ED Bill Poster Installer for Chg Fwd Documented by User: Irineo Narvaez, DO 05/03/23 23:17 HPI - Fall 2 General: Chief Complaint: Weakness Stated Complaint: weakness, falling, blood in urine Time Seen by Provider: 05/03/23 15:58 PFSH ED 2 PFSH: Medical History Anemia Cholangiocarcinoma Chronic hyponatremia Fall Generalized weakness Hyponatremia Cystitis Type 2 diabetes mellitus Hepatobiliary cancer Intrahepatic bile duct dilation Vitamin D deficiency Essential hypertension Diabetes mellitus with hyperglycemia, without long-term current use of insulin Surgical History Hx of endoscopic retrograde cholangiopancreatography (01/10/22) ERCP with biliary stent placement History of esophagogastroduodenoscopy (07/10/22) EGD with endoscopic ultrasound and FNA biopsies of liver and eleazar hepatis lymph node History of endoscopic retrograde cholangiopancreatography (05/23/22) ERCP with removal of biliary stent Family History Mother Diabetes Father Heart attack Sister Breast cancer Social History Smoking and tobacco/nicotine status: never used tobacco/nicotine Second hand smoke exposure: No Alcohol intake: never Substance/Drug Use: never Adopted: No Caregiver/support person: No Lives independently: Yes Household members: spouse Housing: House Marital status: Number of children: 2 service: No Current occupational status: retired Current occupational exposures/hazards: No Do you think of yourself as: Straight/Heterosexual Current gender identity: Female Course 2 Vital Signs: Vital signs: Vital Signs Temperature 98.3 F 05/03/23 14:40 Pulse Rate 101 H 05/03/23 22:00 Respiratory Rate 20 H 05/03/23 22:00 Blood Pressure 108/62 05/03/23 22:30 Pulse Oximetry 91 05/03/23 22:00 Oxygen Delivery Me thod Room Air 05/03/23 20:42 MDM - Fall Medical Decision Making 72-year-old female received in checkout from Dr. Pineda at shift change. This patient has significant jaundice. White blood cell count is 21. Bilirubin is 17. She has a history of hepatic mass, with metastasis, and associated intrahepatic biliary ductal dilatation suggestive of obstruction. She has been given a sepsis bolus, antibiotic coverage. She has been minimally confused, but appears to be mentating somewhat improved now. She has been treated at [facility] in [place] before, as we have no gastroenterology availability here in [place]. We have a call out to them first for potential transfer for treatment. Patient has been accepted by [facility]. They will have a bed on discharge in the morning. She remained stable. She is getting IV fluid maintenance. Will reorder antibiotics for coverage. She will go by ground ambulance when bed available. Lab Data 05/03/23 15:48 05/03/23 15:48 Radiology Impressions Chest X-Ray 05/03/23 14:19 IMPRESSION: No acute cardiopulmonary process. Abdomen/Pelvis CT 05/03/23 16:04 IMPRESSION: 1. Large right hepatic mass or metastasis is again including involvement around the hepatic hilum and extension into the inferior right hepatic lobe. Associated intrahepatic biliary ductal dilatation is again seen with similar appearance to previous exam. 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 2. Interval increased hypodense predominant fluid density is seen about the subhepatic anterior, lateral, and posterior right lobe of the liver. This could represent subcapsular and/or peritoneal metastatic involvement. 3. Previous noted small peritoneal implants/metastasis appear similar without significant change with previous exam. 4. Gallbladder and common bile duct are not evident or visualized as noted with prior exam. 5. Distal ascending colon/hepatic flexure closely abuts the liver metastasis as noted with prior exam, with inability to exclude some involvement of the colonic wall at this level. No bowel dilatation or obstruction otherwise. 6. Mild posterior right basilar effusion with subjacent atelectasis is new from prior exam. Head CT 05/03/23 16:06 IMPRESSION: No large territorial infarct or intracranial bleed. Laboratory Results WBC 20.52 10^3/uL (3.29-11.43) H 05/03/23 15:48 RBC 3.89 10^6/uL (3.85-5.65) 05/03/23 15:48 Hgb 11.90 g/dL (11.27-16.99) 05/03/23 15:48 Hct 35.1 % (36-47) L 05/03/23 15:48 MCV 90.2 fl (85-98) 05/03/23 15:48 MCH 30.6 pg (27-33) 05/03/23 15:48 MCHC 33.9 g/dL (30-55) 05/03/23 15:48 RDW 18.3 % (12.1-15.1) H 05/03/23 15:48 Plt Count 292 10^3/cmm (157-399) 05/03/23 15:48 MPV 10.6 fL (7.4-10.4) H 05/03/23 15:48 Neut % (Auto) 84.3 % 05/03/23 15:48 Lymph % (Auto) 4.6 % 05/03/23 15:48 Benzie % (Auto) 7.3 % 05/03/23 15:48 Eos % (Auto) 0.0 % 05/03/23 15:48 Baso % (Auto) 0.5 % 05/03/23 15:48 Neut # (Auto) 17.28 10^3/uL (1.8-7.7) H 05/03/23 15:48 Lymph # (Auto) 1.0 10^3/uL (0.8-4.8) 05/03/23 15:48 Benzie # (Auto) 1.5 10^3/uL (0.2-0.9) H 05/03/23 15:48 Eos # (Auto) 0.0 10^3/uL (0.0-0.8) 05/03/23 15:48 Baso # (Auto) 0.1 10^3/uL (0.0-0.1) 05/03/23 15:48 Nucleated RBC % (auto) 0 % 05/03/23 15:48 Nucleated RBCs # 0.0 /100WBC 05/03/23 15:48 PT 14.80 SECONDS (12.1-14.9) 05/03/23 15:48 INR 1.13 (0.8-1.2) 05/03/23 15:48 Sodium 130 mmol/L (136-145) L 05/03/23 15:48 Potassium 3.5 mmol/L (3.5-5.1) 05/03/23 15:48 Chloride 92 mmol/L (98-107) L 05/03/23 15:48 Carbon Dioxide 22 mmol/L (22-29) 05/03/23 15:48 Anion Gap 19.5 (5-19) H 05/03/23 15:48 BUN 42 mg/dL (8-23) H 05/03/23 15:48 Creatinine 0.8 mg/dL (0.5-0.9) 05/03/23 15:48 GFR Calculation Not Reportable 05/03/23 15:48 Glucose 180 mg/dL (65-115) H 05/03/23 15:48 Calculated Osmolality 285 mOsm/kg (285-295) 05/03/23 15:48 Lactic Acid 2.9 mmol/L (0.5-2.2) H 05/03/23 15:48 Lactic Acid (Sepsis) 2.4 mmol/L (0.5-2.2) H 05/03/23 18:37 Calcium 9.9 mg/dL (8.5-10.5) 05/03/23 15:48 Magnesium 1.5 mg/dL (1.7-2.3) L 05/03/23 15:48 Total Bilirubin 17.6 mg/dL (0.15-1.2) H* 05/03/23 15:48 AST 45 U/L (0-32) H 05/03/23 15:48 ALT 21 U/L (0-33) 05/03/23 15:48 Alkaline Phosphatase 352 U/L (35-105) H 05/03/23 15:48 Ammonia 48 umol/L (11-51) 05/03/23 16:22 Total Protein 6.3 g/dL (6.6-8.7) L 05/03/23 15:48 Albumin 2.9 g/dL (3.5-5.2) L 05/03/23 15:48 Globulin 3.4 g/dL (1.3-4.6) 05/03/23 15:48 TSH 0.63 uIU/mL (0.27-4.20) 05/03/23 15:48 Urine Color Clarion (Yellow) A 05/03/23 19:36 Urine Appearance Cloudy (CLEAR) A 05/03/23 19:36 Urine pH 6.5 (5-7) 05/03/23 19:36 Ur Specific [place] 1.005 (1.005-1.030) 05/03/23 19:36 Urine Protein 1+ (Negative) H 05/03/23 19:36 Urine Glucose (UA) Norm (Normal) 05/03/23 19:36 Urine Ketones Negative (Negative) 05/03/23 19:36 Urine Blood 2+ (Negative) H 05/03/23 19:36 Urine Nitrate Negative (Negative) 05/03/23 19:36 Urine Bilirubin 3+ (Negative) H 05/03/23 19:36 Urine Urobilinogen 4 mg/dL (Negative) H 05/03/23 19:36 Ur Leukocyte Esterase 2+ (Negative) H 05/03/23 19:36 Urine RBC 15-25 /hpf (0-2) H 05/03/23 19:36 Urine WBC 25-40 /hpf (0-5) H 05/03/23 19:36 Ur Squamous Epith Cells 15-25 /hpf (0-5) H 05/03/23 19:36 Amorphous Sediment 2+ /hpf 05/03/23 19:36 Urine Bacteria 2+ /hpf (NONE) H 05/03/23 19:36 Hyaline Casts 0-4 /lpf H 05/03/23 19:36 Coarse Granular Casts 0-4 /lpf H 05/03/23 19:36 Urine Mucus 1+ /hpf 05/03/23 19:36 Discharge Plan Discharge Patient Disposition: Xfer Short-Term Hosp Clinical Impression: Hepatobiliary cancer, Acquired hyperbilirubinemia, Biliary obstruction Condition: Serious Prescriptions: No Action nitroglycerin 0.4 mg tablet, sublingual 0.4 mg sublingual Q5M PRN (Reason: chest pain) 30 Days Qty: 30 2RF Rx Instructions: do not exceed 3 doses per episode (DME) Wheelchair See Rx Instructions .Route .MEDSUPPLY Qty: 1 0RF Rx Instructions: As directed ondansetron 4 mg tablet,disintegrating 4 mg PO Q8H PRN (Reason: nausea and vomiting) Qty: 30 2RF oxycodone 5 mg tablet 5 mg PO QID PRN (Reason: pain) 30 Days Qty: 120 0RF prochlorperazine maleate [Compazine] 10 mg tablet 10 mg PO Q4H PRN (Reason: Mild Nausea) Qty: 30 3RF lorazepam 1 mg tablet 0.5 - 1 mg PO Q6H PRN (Reason: Severe Nausea) Qty: 30 3RF furosemide 40 mg tablet 40 mg PO DAILY PRN (Reason: Edema) potassium chloride 10 mEq tablet extended release 10 meq PO DAILY PRN (Reason: Edema) Rx Instructions: TAKE WITH FUROSEMIDE omeprazole magnesium [Prilosec OTC] 20 mg Tablet,Delayed Release (Dr/Ec) 20 mg PO DAILY PRN (Reason: Heartburn) Referrals: Aryan Cannon, MANAGER PMO-C [Primary Care Provider] - Coding Level of Care Code ED Bill Poster Installer for Hemal Merino
[2023-05-03 16:18] LABS: INR 1.13 (0.8-1.2)
[2023-05-03] MEDS: sodium chloride 0.9% 1,000 ML 999 ML IV ×2 (16:26→17:36)
[2023-05-03 16:38] LABS: Alanine Aminotransferase 21 U/L (0-33); Albumin Level 2.9 g/dL (3.5-5.2); Alkaline Phosphatase 352 U/L (35-105); Anion Gap 19.5 (5-19); Aspartate Amino Transferase 45 U/L (0-32); Blood Urea Nitrogen 42 mg/dL (8-23); Calcium 9.9 mg/dL (8.5-10.5); Carbon Dioxide 22 mmol/L (22-29); Chloride 92 mmol/L (98-107); Globulin 3.4 g/dL (1.3-4.6); Glucose 180 mg/dL (65-115); Magnesium 1.5 mg/dL (1.7-2.3); Osmolality Calculated 285 mOsm/kg (285-295); Potassium 3.5 mmol/L (3.5-5.1); Sodium 130 mmol/L (136-145); Thyroid Stimulating Hormone 0.63 uIU/mL (0.27-4.20); Total Protein 6.3 g/dL (6.6-8.7)
[2023-05-03 16:41] LABS: Total Bilirubin 17.6 mg/dL (0.15-1.2)
[2023-05-03 16:45] LABS: Ammonia 48 umol/L (11-51)
[2023-05-03] MEDS: iohexol 350 mg/mL 500 mL Btl (per mL) IV (17:06)
[2023-05-03 17:20] LABS: Lactic Sepsis W/Reflex 2.9 mmol/L (0.5-2.2)
[2023-05-03] MEDS: piperacillin-tazobactam 3.375 GM in sodium chloride 0.9% (plus) 50 ML IV (17:37)
[2023-05-03 17:54] LABS: Reflex Lactate Order REFLEX LACTIC ORDERD
[2023-05-03] MEDS: vancomycin 1,000 MG in sodium chloride 0.9% 250 ML 250 MG IV (18:12)
[2023-05-03 18:59] LABS: Lactic Acid level (Lactate) 2.4 mmol/L (0.5-2.2)
[2023-05-03 19:57] LABS: Add Urine Microscopic? YES
[2023-05-03 19:58] LABS: Bilirubin Urine 3+ (Negative); Blood Urine 2+ (Negative); Glucose Urine UA Norm (Normal); Ketones Urine Negative (Negative); Leukocyte Esterase Urine 2+ (Negative); Nitrate Urine Negative (Negative); Protein Urine 1+ (Negative); Specific Gravity, Urine 1.005 (1.005-1.030); Urine Appearance Cloudy (CLEAR); Urine Color Orange (Yellow); Urobilinogen Urine 4 mg/dL (Negative); pH Urine 6.5 (5-7)
[2023-05-03 19:59] LABS: Bacteria Urine 2+ /hpf; Squamous Epithelial Cell Urine 15-25 /hpf (0-5); WBC Urine 25-40 /hpf (0-5)
[2023-05-03 20:00] LABS: Amorphous Sediment Urine 2+ /hpf; Coarse Granular Casts Urine 0-4 /lpf; Hyaline Casts Urine 0-4 /lpf; Mucus Urine 1+ /hpf; RBC Urine 15-25 /hpf (0-2)
[2023-05-03] MEDS: sodium chloride 0.9% 1,000 ML 100 ML IV (21:22)
[2023-05-04] VITALS (16 sets, daily range): BP systolic 106–122; BP diastolic 56–74; PULSE 87–94; RESP 17–25; O2SAT 92–94
[2023-05-04] MEDS: piperacillin-tazobactam 3.375 GM in sodium chloride 0.9% (plus) 50 ML IV ×2 (00:02→05:34)
[2023-05-04] MEDS: vancomycin 1,000 MG in sodium chloride 0.9% 250 ML 250 MG IV (06:24)
[2023-05-04] MEDS: ondansetron 2 mg/ML SDV 2 mL 4 MG IVP (06:25)
[2023-05-04] MEDS: morphine 4 mg/mL SDV 1 mL IVP (06:25)
== END 2023-05-04 07:45 | disposition short-term general hospital (02) ==
PROVIDERS: Emergency Medicine; Emergency Provider Emergency Medicine; PCP Nurse Practitioner
DX: E80.6 Other disorders of bilirubin metabolism (principal); C24.9 Malignant neoplasm of biliary tract, unspecified; K83.1 Obstruction of bile duct; E11.9 Type 2 diabetes mellitus without complications; I10 Essential (primary) hypertension
CPT/HCPCS: 36415; 70450; 71045; 74177; 80053; 81001; 82140; 83605; 83735; 84443; 85025; 85610; 87040; 93005; 96365; 96366; 96367; 96375; 99285; J2270; J2405; J2543; J3370; J7030; J7050; Q9967

== ENCOUNTER → 2023-05-25 10:14 | Outpatient (BNVA) | payer MEDICARE, SELFPAY | PROVIDERS: PCP Nurse Practitioner; Visit Provider Nurse Practitioner | DX: D50.9 Iron deficiency anemia, unspecified (principal); C22.1 Intrahepatic bile duct carcinoma | CPT/HCPCS: 80053; 82306; 82607; 83036; 83735; 85025 ==

== ENCOUNTER 2023-06-04 07:59 | Oncology outpatient (recurring) (ONCR) | payer MEDICARE, SELFPAY ==
[2023-06-04 08:32] LABS: Basophils # 0.1 10^3/uL (0.0-0.1); Basophils % 0.6 %; Lymphocytes % 9.3 %; Mean Corpuscular HGB Conc 33.4 g/dL (30-55); Mean Corpuscular Hemoglobin 32.4 pg (27-33); Mean Corpuscular Volume 96.9 fl (85-98); Mean Platelet Volume 9.9 fL (7.4-10.4); Monocytes # 0.7 10^3/uL (0.2-0.9); Monocytes % 6.4 %; Neutrophils # 9.13 10^3/uL (1.8-7.7); Neutrophils % 83.2 %; Nucleated Red Blood Cells % 0 %; Platelet Count 201 10^3/cmm (157-399); Red Blood Count 3.92 10^6/uL (3.85-5.65); Red Cell Distribution Width 15.4 % (12.1-15.1); White Blood Count 10.98 10^3/uL (3.29-11.43)
[2023-06-04 09:03] LABS: Alanine Aminotransferase 36 U/L (0-33); Albumin Level 2.5 g/dL (3.5-5.2); Alkaline Phosphatase 608 U/L (35-105); Blood Urea Nitrogen 17 mg/dL (8-23); Calcium 8.5 mg/dL (8.5-10.5); Cancer Antigen 19 9 698.7 U/mL (0-35); Carbon Dioxide 28 mmol/L (22-29); Chloride 97 mmol/L (98-107); Globulin 3.6 g/dL (1.3-4.6); Glucose 123 mg/dL (65-115); Osmolality Calculated 281 mOsm/kg (285-295); Sodium 134 mmol/L (136-145); Total Protein 6.1 g/dL (6.6-8.7)
[2023-06-04 09:21] LABS: Anion Gap 12.2 (5-19); Aspartate Amino Transferase 132 U/L (0-32); Potassium 3.2 mmol/L (3.5-5.1); Total Bilirubin 9.4 mg/dL (0.15-1.2)
== END 2023-06-28 23:59 | disposition home or self-care (01) ==
PROVIDERS: Internal Medicine Medical Oncology; PCP Nurse Practitioner; Visit Provider Internal Medicine
DX: C22.1 Intrahepatic bile duct carcinoma (principal); D50.9 Iron deficiency anemia, unspecified; C77.2 Secondary and unspecified malignant neoplasm of intra-abdominal lymph nodes; Z92.21 Personal history of antineoplastic chemotherapy; K72.90 Hepatic failure, unspecified without coma; R18.8 Other ascites; Z79.899 Other long term (current) drug therapy
CPT/HCPCS: 36415; 74177; 80053; 85025; 86301; 99214; Q9967

== ENCOUNTER 2023-06-04 09:57 | Outpatient (CLI) | payer MEDICARE, SELFPAY ==
[2023-06-04] MEDS: iohexol 350 mg/mL 500 mL Btl (per mL) PO (10:05)
--- NOTE | 2023-06-04 11:00 | CT_ITS ---
WS: [id number] CT ABDOMEN PELVIS TECHNIQUE: Contrast-enhanced CT of the abdomen and pelvis with coronal and sagittal reformatted image s. CLINICAL INFORMATION: elevated bilirubin COMPARISON: CT 05/03/23 DLP: 511.[address] scans at [facility] use at least one of these dose optimization techniques: automated e xposure control; mA and/or kV adjustment per patient size (includes targeted exams where dose is matc hed to clinical indication); or iterative reconstruction. FINDINGS: Small to moderate RIGHT pleural effusion with compressive atelectasis RIGHT lower lobe progressed com pared to previous. LEFT lower lobe is well aerated. Interval placement of common bile duct stent. Aga in seen is diffuse intrahepatic biliary ductal dilatation with heterogeneous enhancing RIGHT hepatic mass. This is similar appearance to the prior examinations. Intrahepatic bile duct dilatation RIGHT hepatic lobe near the dome of the liver appears progressed a t the tip of the stent suspicious for stent dysfunction. Decompression of the LEFT hepatic lobe intra hepatic ducts with pneumobilia. RIGHT hepatic metastasis is similar in size measuring approximately 4 .9 x 7.3 cm. 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 Gastroesophageal varices. Fatty atrophy of the pancreas. Adrenal glands are normal. Normal renal pare nchymal enhancement. No hydronephrosis. Normal caliber abdominal aorta. Mild diffuse body wall anasar ca. Mild pelvic ascites. Lumbar scoliosis. Similar-appearing peritoneal and abdominal wall implants. Largest implant in the RIGHT paracolic gutt er measuring 2.1 cm stable since 05/03/2023 and slightly improved since 04/10/2023. IMPRESSION: 1. Interval placement of common bile duct stent which appears patent. 2. Wayne hepatic metastasis in the RIGHT hepatic lobe appears stable compared to the prior exam ination. 3. Increase of the intrahepatic biliary ductal dilatation in the RIGHT hepatic lobe near the dome of the liver at the tip of the stent with fluid or soft tissue likely occluding the stent in this area. Recommend correlation for stent dysfunction. The adjacent LEFT intrahepatic ducts are decompressed a nd air-filled. Remainder of the stent is air-filled. 4. Small to moderate RIGHT pleural effusion with compressive atelectasis RIGHT lower lobe. 5. Previously described peritoneal implants are similar in appearance. 6. Mild pelvic ascites.
[2023-06-04] MEDS: iohexol 350 mg/mL 500 mL Btl (per mL) IV (11:01)
== END 2023-06-04 09:58 | disposition home or self-care (01) ==
LOC: RAD 09:58
PROVIDERS: PCP Nurse Practitioner; Visit Provider Internal Medicine Medical Oncology
DX: C22.1 Intrahepatic bile duct carcinoma (principal)
CPT/HCPCS: 74177; Q9967

== ENCOUNTER 2023-07-05 18:06 | Emergency (ER) | payer MEDICARE, SELFPAY ==
[2023-07-05] VITALS (7 sets, daily range): BP systolic 106–124; BP diastolic 72–81; PULSE 89–112; RESP 16–17; TEMP 36.5; O2SAT 97–100; BMI 28.3
--- NOTE | 2023-07-05 18:36 | CTR_ITS ---
PROCEDURE INFORMATION: Exam: CT Abdomen And Pelvis With Contrast Exam date and time: 07/05/2023 7:10 PM Age: 72 years old Clinical indication: Abdominal pain; Localized; Right; Prior surgery; Surgery date: 6+ months; Surgery type: Biliary stent; Patient HX: RT side abd pain with diarrhea. History of cholangiocarcinoma; Additional info: R sided abd pain, diarrhea. HX cholangiocarcinoma TECHNIQUE: Imaging protocol: Computed tomography of the abdomen and pelvis with contrast. Radiation optimization: All CT scans at this facility use at least one of these dose optimization techniques: automated exposure control; mA and/or kV adjustment per patient size (includes targeted exams where dose is matched to clinical indication); or iterative reconstruction. Contrast material: OMNI 350; Contrast volume: 100 ml; Contrast route: INTRAVENOUS (IV); COMPARISON: CT abdomen pelvis w con* [id number] 06/04/2023 11:00 AM RADIATION DOSE METRICS: Total DLP (mGy-cm): 631.86 FINDINGS: Lungs: See Pleural spaces finding. Pleural spaces: Partially evaluated large right pleural effusion is again noted similar in caliber to prior comparison. Associated atelectasis is seen. Heart: Base of heart is unremarkable as visualized. Liver: No significant change in short interval evaluation of known right hepatic lobe mass which extends to the hepatic hilum, with satellite lesions appreciated throughout the right hepatic lobe as well as the left hepatic lobe. Redemonstrated and unchanged subcapsular fluid collections for example series 3 images 10 through 27). Gallbladder and bile ducts: Unchanged positioning of the original biliary stent. Decrease in caliber of pneumobilia. Interval placement of additional biliary stent, which appears appropriately positioned. Mild increase in biliary collecting system prominence of the right hepatic lobe. Pancreas: Normal. No ductal dilation. Spleen: Numerous splenic granulomas are noted. Adrenal glands: Normal. No mass. Kidneys and ureters: Normal. No hydronephrosis. Stomach and bowel: There is mid to distal sigmoid colonic wall thickening with surrounding inflammatory change which extends into the rectum consistent with colitis/proctitis. Additional sites of colonic inflammatory changes noted at the splenic flexure, as well as the cecum/proximal ascending colon. Appendix: No evidence of appendicitis. Intraperitoneal space: No change in scattered omental metastatic lesions most prominent about the right upper quadrant reflection. No change in volume of intraperitoneal ascites. Vasculature: Aortic ectasia is noted. Mild scattered atherosclerotic disease of the visualized aorta. Numerous periaortic, paraesophageal varices are noted. Varicoid vessels along the eleazar hepatis are also demonstrated consistent with cavernous transformation of the portal vein. Numerous pelvic phleboliths are noted. Lymph nodes: Calcified right hilar lymph node. Calcified subcarinal lymph node. Small left pleural effusion with associated atelectasis and satellite ground-glass. Urinary bladder: Bladder is distended without focal wall abnormality. Reproductive: Unremarkable as visualized. Bones/joints: Severe degenerative changes of the visualized osseous structures. Soft tissues: Unremarkable. CT/CT abdomen pelvis w con* [id number] IMPRESSION: 1. Findings suggest nonspecific colitis/proctitis. Differential considerations include typhlitis considering cecal and ascending colonic involvement. 2. Interval increase in subcapsular collections about the right posterior hepatic lobe, as well as, the right hepatic collecting system which may reflect biliary stent dysfunction. 3. Additional unchanged findings as detailed above.
[2023-07-05] MEDS: ondansetron 2 mg/ML SDV 2 mL 4 MG IVP (18:58)
[2023-07-05] MEDS: morphine 4 mg/mL SDV 1 mL IVP ×2 (19:02→22:30)
[2023-07-05 19:08] LABS: Basophils # 0.1 10^3/uL (0.0-0.1); Basophils % 0.4 %; Eosinophils % 0.1 %; Hematocrit 35.8 % (36-47); Lymphocytes # 1.3 10^3/uL (0.8-4.8); Lymphocytes % 9.5 %; Mean Corpuscular HGB Conc 33.8 g/dL (30-55); Mean Corpuscular Hemoglobin 32.1 pg (27-33); Mean Platelet Volume 9.4 fL (7.4-10.4); Monocytes # 0.9 10^3/uL (0.2-0.9); Monocytes % 6.9 %; Neutrophils # 10.79 10^3/uL (1.8-7.7); Neutrophils % 82.2 %; Nucleated Red Blood Cells % 0 %; Platelet Count 196 10^3/cmm (157-399); Red Blood Count 3.77 10^6/uL (3.85-5.65); Red Cell Distribution Width 15.7 % (12.1-15.1); White Blood Count 13.12 10^3/uL (3.29-11.43)
[2023-07-05] MEDS: iohexol 350 mg/mL 500 mL Btl (per mL) IV (19:11)
[2023-07-05 19:27] LABS: Alanine Aminotransferase 26 U/L (0-33); Albumin Level 2.4 g/dL (3.5-5.2); Alkaline Phosphatase 555 U/L (35-105); Anion Gap 13.2 (5-19); Aspartate Amino Transferase 77 U/L (0-32); Blood Urea Nitrogen 24 mg/dL (8-23); Calcium 9.3 mg/dL (8.5-10.5); Carbon Dioxide 28 mmol/L (22-29); Chloride 92 mmol/L (98-107); Creatinine Clr Calc Pharmacy 56.6676; Globulin 3.1 g/dL (1.3-4.6); Glucose 167 mg/dL (65-115); Lipase 29 U/L (13-60); Osmolality Calculated 278 mOsm/kg (285-295); Potassium 3.2 mmol/L (3.5-5.1); Sodium 130 mmol/L (136-145); Total Bilirubin 4.8 mg/dL (0.15-1.2); Total Protein 5.5 g/dL (6.6-8.7)
[2023-07-05 19:28] LABS: Lactic Sepsis W/Reflex 2.8 mmol/L (0.5-2.2)
--- NOTE | 2023-07-05 19:35 | ED_ITS ---
HPI - Abdominal Pain 2 General: Chief Complaint: Abdominal Pain Stated Complaint: abdomen pain, pcp sent for ct scan Time Seen by Provider: 07/05/23 18:16 History of Present Illness: 72-year-old female with a history of cho langiocarcinoma that is metastatic. She received a biliary stent 1.5 to 2 weeks ago at [facility] in [place]. This was an in-stent placement inside a previously placed stent, due to clogging. Since that time, her eyes have been less yellow, and swelling in her feet and belly which was significant, seems to have improved. However, she has experienced some constipation a couple of days ago, but with relief of this constipation is now having significant diarrhea, to the point that she cannot control her bowels. She has had 4 liquid bowel movements today. She notes an increase in her belly pain today as well. No vomiting. No fever. Associated Symptoms: Reports diarrhea and nausea; Denies fever(s), hematochezia and vomiting Review of Systems 2 Const: Denies: fever(s) ENMT: Denies: throat pain Card: Denies: chest pain Resp: Denies: dyspnea, productive cough or non-productive cough GI: Reports: abdominal pain, nausea and diarrhea; Denies: vomiting or hematochezia PFSH ED 2 PFSH: Medical History Diabetes mellitus with hyperglycemia, with long-term current use of insulin Anemia Cholangiocarcinoma Chronic hyponatremia Fall Generalized weakness Hyponatremia Cystitis Hepatobiliary cancer Intrahepatic bile duct dilation Vitamin D deficiency Essential hypertension Surgical History Hx of endoscopic retrograde cholangiopancreatography (01/10/22) ERCP with biliary stent placement History of esophagogastroduodenoscopy (07/10/22) EGD with endoscopic ultrasound and FNA biopsies of liver and eleazar hepatis lymph node History of endoscopic retrograde cholangiopancreatography (05/23/22) ERCP with removal of biliary stent Family History Mother Diabetes Father Heart attack Sister Breast cancer Social History Smoking and tobacco/nicotine status: never used tobacco/nicotine Second hand smoke exposure: No Alcohol intake: never Substance/Drug Use: never Adopted: No Caregiver/support person: No Lives independently: Yes Household members: spouse Housing: House Marital status: Number of children: 2 service: No Current occupational status: retired Current occupational exposures/hazards: No Do you think of yourself as: Straight/Heterosexual Current gender identity: Female Physical Exam 2 Const: COMMON NORMALS: no acute distress GENERAL APPEARANCE: cooperative, ill appearing (Mildly) and frail appearing HENMT: COMMON NORMALS: normocephalic, atraumatic and Normal external nose present HEAD & SCALP: normocephalic and atraumatic FACE & SINUS: normal facial exam and face symmetric NOSE: Normal external nose present Eye: COMMON NORMALS: Equal, round and reactive pupils present and EOMs intact bilaterally SCLERA: scleral abnormal Laterality of scleral abnormality: positive bilateral scleral icterus PUPIL: Yes Equal, round and reactive pupils present Neck/C-Spine: GENERAL: Yes trachea midline Chest: CHEST: Yes Symmetrical chest wall rise Resp: COMMON NORMALS: normal respiratory effort, No retractions, No use of accessory muscles and clear to auscultation bilaterally AUSCULTATION: clear to auscultation bilaterally Cardio: COMMON NORMALS: regular rate and regular rhythm RATE: regular rate RHYTHM: regular rhythm GI: COMMON NORMALS: Soft to palpation INSPECTION: Yes abdominal distension PALPATION: Yes Soft to palpation, Yes Tenderness to palpation present (GI) (Generalized) and Yes Guarding due to palpation present (GI) Extremity: COMMON NORMALS: no pedal edema Neuro: BEATA COMA SCALE: document GCS findings Beata coma scale eye opening: Spontaneous [place] coma scale verbal response: Orientated Beata coma scale motor response: Obey commands [place] coma scale total score: 15 S ENSORY EXAM: Yes extremities (intact) Psych: COMMON NORMALS: speech normal SPEECH: Yes normal speech Skin: COMMON NORMALS: no rashes or lesions noted GENERAL SKIN EXAM: no rashes or lesions noted Course 2 Vital Signs: Vital signs: Vital Signs Temperature 97.7 F 07/05/23 18:07 Pulse Rate 100 07/05/23 23:09 Respiratory Rate 16 07/05/23 23:09 Blood Pressure 110/72 07/05/23 23:09 Pulse Oximetry 97 07/05/23 23:09 Oxygen Delivery Me thod Room Air 07/05/23 23:09 MDM - Abdominal Pain Medical Decision Making I spoke with our hospitalist. This lady has significant nonspecific colitis and proctitis. Her white blood cell count is 13. Lactic acid is 2.8. She is intentionally not given a sepsis bolus, as she retains fluid chronically, has ascites, and has problems with shortness of breath. Her potassium is 3.2. BUN is 24. Of note, on the CT is an interval increase in subcapsular collections about the right posterior hepatic lobe as well as the right hepatic collecting system which may reflect biliary stent dysfunction. Our hospitalist is concerned about stent dysfunction in this patient in the setting of colitis. We can treat the colitis here, but if the stent is malfunctioning, she will require ERCP at a facility capable of doing such procedure. I spoke with [facility] in [place], where she receives her GI care, and received her previous stent. They are willing to take in transfer, but they will have a bed available later this morning. In the meantime, she is getting Zosyn, Flagyl, maintenance fluid, and pain medication as needed. She will go by ambulance when bed is available. Lab Data 07/05/23 18:55 07/05/23 18:55 Labs/Radiology: Radiology Impressions Abdomen/Pelvis CT 07/05/23 18:36 IMPRESSION: 1. Findings suggest nonspecific colitis/proctitis. Differential considerations include typhlitis considering cecal and ascending colonic involvement. 2. Interval increase in subcapsular collections about the right posterior hepatic lobe, as well as, the right hepatic collecting system which may reflect biliary stent dysfunction. 3. Additional unchanged findings as detailed above. Laboratory Results WBC 13.12 10^3/uL (3.29-11.43) H 07/05/23 18:55 RBC 3.77 10^6/uL (3.85-5.65) L 07/05/23 18:55 Hgb 12.10 g/dL (11.27-16.99) 07/05/23 18:55 Hct 35.8 % (36-47) L 07/05/23 18:55 MCV 95.0 fl (85-98) 07/05/23 18:55 MCH 32.1 pg (27-33) 07/05/23 18:55 MCHC 33.8 g/dL (30-55) 07/05/23 18:55 RDW 15.7 % (12.1-15.1) H 07/05/23 18:55 Plt Count 196 10^3/cmm (157-399) 07/05/23 18:55 MPV 9.4 fL (7.4-10.4) 07/05/23 18:55 Neut % (Auto) 82.2 % 07/05/23 18:55 Lymph % (Auto) 9.5 % 07/05/23 18:55 [place] % (Auto) 6.9 % 07/05/23 18:55 Eos % (Auto) 0.1 % 07/05/23 18:55 Baso % (Auto) 0.4 % 07/05/23 18:55 Neut # (Auto) 10.79 10^3/uL (1.8-7.7) H 07/05/23 18:55 Lymph # (Auto) 1.3 10^3/uL (0.8-4.8) 07/05/23 18:55 [place] # (Auto) 0.9 10^3/uL (0.2-0.9) 07/05/23 18:55 Eos # (Auto) 0.0 10^3/uL (0.0-0.8) 07/05/23 18:55 Baso # (Auto) 0.1 10^3/uL (0.0-0.1) 07/05/23 18:55 Nucleated RBC % (auto) 0 % 07/05/23 18:55 Nucleated RBCs # 0.0 /100WBC 07/05/23 18:55 Sodium 130 mmol/L (136-145) L 07/05/23 18:55 Potassium 3.2 mmol/L (3.5-5.1) L 07/05/23 18:55 Chloride 92 mmol/L (98-107) L 07/05/23 18:55 Carbon Dioxide 28 mmol/L (22-29) 07/05/23 18:55 Anion Gap 13.2 (5-19) 07/05/23 18:55 BUN 24 mg/dL (8-23) H 07/05/23 18:55 Creatinine 0.8 mg/dL (0.5-0.9) 07/05/23 18:55 GFR Calculation Not Reportable 07/05/23 18:55 Glucose 167 mg/dL (65-115) H 07/05/23 18:55 Calculated Osmolality 278 mOsm/kg (285-295) L 07/05/23 18:55 Lactic Acid 2.8 mmol/L (0.5-2.2) H 07/05/23 18:55 Lactic Acid (Sepsis) 2.1 mmol/L (0.5-2.2) 07/05/23 21:46 Calcium 9.3 mg/dL (8.5-10.5) 07/05/23 18:55 Total Bilirubin 4.8 mg/dL (0.15-1.2) H 07/05/23 18:55 AST 77 U/L (0-32) H 07/05/23 18:55 ALT 26 U/L (0-33) 07/05/23 18:55 Alkaline Phosphatase 555 U/L (35-105) H 07/05/23 18:55 C-Reactive Protein 124.0 mg/L (0.0-4.9) H 07/05/23 18:55 Total Protein 5.5 g/dL (6.6-8.7) L 07/05/23 18:55 Albumin 2.4 g/dL (3.5-5.2) L 07/05/23 18:55 Globulin 3.1 g/dL (1.3-4.6) 07/05/23 18:55 Lipase 29 U/L (13-60) 07/05/23 18:55 Urine Color Brown (Yellow) A 07/05/23 20:25 Urine Appearance Hazy (CLEAR) A 07/05/23 20:25 Urine pH 6.5 (5-7) 07/05/23 20:25 Ur Specific [place] 1.005 (1.005-1.030) 07/05/23 20:25 Urine Protein 1+ (Negative) H 07/05/23 20:25 Urine Glucose (UA) Norm (Normal) 07/05/23 20:25 Urine Ketones Negative (Negative) 07/05/23 20:25 Urine Blood 2+ (Negative) H 07/05/23 20:25 Urine Nitrate Positive (Negative) H 07/05/23 20:25 Urine Bilirubin 1+ (Negative) H 07/05/23 20:25 Urine Urobilinogen 1 mg/dL (Negative) H 07/05/23 20:25 Ur Leukocyte Esterase 2+ (Negative) H 07/05/23 20:25 Urine RBC 5-10 /hpf (0-2) H 07/05/23 20:25 Urine WBC 55-80 /hpf (0-5) H 07/05/23 20:25 Ur Squamous Epith Cells 5-10 /hpf (0-5) H 07/05/23 20:25 Amorphous Sediment Not Reportable 07/05/23 20:25 Urine Bacteria 2+ /hpf (NONE) H 07/05/23 20:25 Urine Mucus Trace /hpf 07/05/23 20:25 All radiology interpretation(s) finalized by discharge Discharge Plan Discharge Patient Disposition: Xfer Short-Term Hosp Clinical Impression: Cholangiocarcinoma, Colitis Condition: Fair Prescriptions: No Action nitroglycerin 0.4 mg tablet, sublingual 0.4 mg sublingual Q5M PRN (Reason: chest pain) 30 Days Qty: 30 2RF Rx Instructions: do not exceed 3 doses per episode ondansetron 4 mg tablet,disintegrating 4 mg PO Q8H PRN (Reason: nausea and vomiting) Qty: 30 2RF (DME) Wheelchair See Rx Instructions .Route .MEDSUPPLY Qty: 1 0RF Rx Instructions: As directed insulin glargine [Lantus Solostar U-100 Insulin] 100 unit/mL (3 mL) insulin pen 10 unit SUBCUT QAM Qty: 15 1RF (DME) pen needle, diabetic 33 gauge x 5/32 needle See Rx Instructions .ROUTE .MEDSUPPLY Qty: 100 5RF Rx Instructions: 1 time day ivosidenib 250 mg tablet 500 mg PO DAILY Qty: 60 11RF furosemide 40 mg tablet 40 mg PO BID Qty: 60 0RF potassium chloride 10 mEq tablet extended release 10 meq PO TID PRN (Reason: Edema) Qty: 90 0RF Rx Instructions: TAKE WITH FUROSEMIDE oxycodone 5 mg tablet 5 mg PO QID PRN (Reason: pain) 30 Days Qty: 120 0RF prochlorperazine maleate [Compazine] 10 mg tablet 10 mg PO Q4H PRN (Reason: Mild Nausea) Qty: 30 3RF lorazepam 1 mg tablet 0.5 - 1 mg PO Q6H PRN (Reason: Severe Nausea) Qty: 30 3RF omeprazole magnesium [Prilosec OTC] 20 mg Tablet,Delayed Release (Dr/Ec) 20 mg PO DAILY PRN (Reason: Heartburn) Referrals: Aryan Cannon, [facility] [Primary Care Provider] - Coding Level of Care Code ED Reimbursement Coordinator for Hemal Merino
[2023-07-05] MEDS: sodium chloride 0.9% 500 ML 999 ML IV (20:27)
[2023-07-05 20:40] LABS: Add Urine Culture? Yes; Add Urine Microscopic? YES; Bacteria Urine 2+ /hpf; Bilirubin Urine 1+ (Negative); Blood Urine 2+ (Negative); Glucose Urine UA Norm (Normal); Ketones Urine Negative (Negative); Leukocyte Esterase Urine 2+ (Negative); Mucus Urine TRACE /hpf; Nitrate Urine Positive (Negative); Protein Urine 1+ (Negative); Specific Gravity, Urine 1.005 (1.005-1.030); Urine Appearance Hazy (CLEAR); Urobilinogen Urine 1 mg/dL (Negative); WBC Urine 55-80 /hpf (0-5); pH Urine 6.5 (5-7)
[2023-07-05 20:41] LABS: Urine Color Brown (Yellow)
[2023-07-05 20:55] LABS: Reflex Lactate Order REFLEX LACTIC ORDERD
[2023-07-05 22:20] LABS: Lactic Acid level (Lactate) 2.1 mmol/L (0.5-2.2)
[2023-07-05] MEDS: ondansetron 2 mg/ML SDV 2 mL 8 MG IVP (22:29)
[2023-07-05] MEDS: sodium chloride 0.9% 1,000 ML 125 ML IV (22:30)
[2023-07-05] MEDS: piperacillin-tazobactam 3.375 GM in sodium chloride 0.9% (plus) 50 ML IV (22:41)
[2023-07-05] MEDS: metroNIDAZOLE IV 500 MG/100 ML PREMIX 100 MG IV (22:59)
[2023-07-06] VITALS (16 sets, daily range): BP systolic 100–190; BP diastolic 61–72; PULSE 94–105; RESP 16–19; O2SAT 96–99
[2023-07-06] MEDS: metroNIDAZOLE IV 500 MG/100 ML PREMIX 100 MG IV ×3 (03:55→20:09)
[2023-07-06] MEDS: piperacillin-tazobactam 3.375 GM in sodium chloride 0.9% (plus) 50 ML IV ×4 (04:28→22:34)
[2023-07-06] MEDS: sodium chloride 0.9% 1,000 ML 125 ML IV ×3 (06:11→22:28)
--- NOTE | 2023-07-06 11:13 | PC.NURSE ---
This nurse assumed pt care at this time.
[2023-07-06] MEDS: morphine 4 mg/mL SDV 1 mL IVP (13:39)
--- NOTE | 2023-07-06 15:30 | PC.NURSE ---
Pt requesting something to drink. I talked with Dr Mcdowell and pt is to be NPO
--- NOTE | 2023-07-06 17:15 | PC.NURSE ---
Up to [facility] with assist, urinated and had small amount liquid brown stool.
--- NOTE | 2023-07-06 18:40 | PC.NURSE ---
Report to Mikala MARSH
--- NOTE | 2023-07-06 21:04 | PC.NURSE ---
PT OFFERED FOOD AT 1999, PT REFUSED BUT DID REQUEST A SPRITE. THIS NURSE TOOK PT SPRITE, JELLO, AND APPLESAUCE; PT AT THIS TIME DRANK SPRITE AND ATE ONE CONTAINER OF APPLESAUCE. PT TO BE NPO AT OR PER CHARGE NURSE.
[2023-07-07] VITALS: BP 112/69; O2SAT 95
[2023-07-07 02:35] VITALS: BP 109/61; PULSE 105; RESP 16; O2SAT 96
[2023-07-07 04:00] VITALS: BP 142/80; PULSE 103; RESP 14; O2SAT 95
[2023-07-07 06:00] VITALS: BP 142/80; PULSE 101; RESP 16; O2SAT 97
[2023-07-07] MEDS: ondansetron 2 mg/ML SDV 2 mL 8 MG IVP (06:04)
[2023-07-07 06:05] VITALS: RESP 16; O2SAT 96
[2023-07-07] MEDS: morphine 4 mg/mL SDV 1 mL IVP (06:05)
[2023-07-07] MEDS: piperacillin-tazobactam 3.375 GM in sodium chloride 0.9% (plus) 50 ML IV (06:06)
[2023-07-07] MEDS: metroNIDAZOLE IV 500 MG/100 ML PREMIX 100 MG IV (06:17)
[2023-07-07] MEDS: sodium chloride 0.9% 1,000 ML 125 ML IV (06:22)
== END 2023-07-07 09:47 | disposition short-term general hospital (02) ==
PROVIDERS: Emergency Provider Emergency Medicine; PCP Nurse Practitioner
DX: K52.9 Noninfective gastroenteritis and colitis, unspecified (principal); C22.1 Intrahepatic bile duct carcinoma; E11.9 Type 2 diabetes mellitus without complications; I10 Essential (primary) hypertension; Z79.4 Long term (current) use of insulin
CPT/HCPCS: 36415; 74177; 80053; 81001; 83605; 83690; 85025; 86140; 87077; 87086; 87186; 96365; 96366; 96367; 96375; 96376; 99285; J2270; J2405; J2543; J3490; J7030; J7040; Q9967

== ENCOUNTER → 2023-07-13 15:35 | Outpatient (BNVA) | payer MEDICARE, SELFPAY | PROVIDERS: PCP Nurse Practitioner; Visit Provider Nurse Practitioner | DX: I10 Essential (primary) hypertension (principal) | CPT/HCPCS: 80053; 85025 ==

== ENCOUNTER → 2023-07-20 11:06 | Outpatient (BNVA) | payer MEDICARE, SELFPAY | PROVIDERS: PCP Nurse Practitioner; Visit Provider Nurse Practitioner | DX: E87.1 Hypo-osmolality and hyponatremia (principal) | CPT/HCPCS: 80053; 85025 ==